=== PATIENT | female | born 1970 ===

== ENCOUNTER 2020-05-22 13:37 | Emergency (ER) | payer OTHER, SELFPAY ==
[2020-05-22 15:08] VITALS: BP 147/93; PULSE 88; RESP 16; TEMP 36.6; O2SAT 98; BMI 34.7
--- NOTE | 2020-05-22 16:10 | XR_ITS ---
EXAMINATION: XR RIBS, LEFT CLINICAL INFORMATION: Left flank and rib pain. COMPARISON: Chest radiograph 09/24/2018 TECHNIQUE: Frontal view chest and 3 views left ribs are obtained for a total of 4 views. FINDINGS: There is no visible rib fracture or rib destructive process. The lungs are clear. There is no pneumothorax or pleural reaction. There is no airspace consolidation or effusion. The heart is normal in size. The vascularity is normal. The hilar and mediastinal contours are unremarkable. XR/XR ribs LT min 3V w CXR1V IMPRESSION: Unremarkable examination.
[2020-05-22 16:38] LABS: MANUAL DIFF FLAG NO
[2020-05-22 16:41] LABS: Basophils Percent Auto 0.3 % (0-2); Eosinophils Absolute Auto 0.2 X10*3/uL (0.0-0.4); Eosinophils Percent Auto 1.3 % (0-4); Hematocrit 39.3 % (37-47); Hemoglobin 12.5 g/dl (12.0-16.0); Imm Gran Abs Auto 0.04 X10*3/uL (0.00-0.03); Imm Gran Pct Auto 0.3 % (0.0-0.4); Lymphocytes Absolute Auto 2.5 X10*3/uL (1.2-4.9); Lymphocytes Percent Auto 20.8 % (20-40); Mean Corpuscular HGB Conc 31.8 g/dl (31.0-35.0); Mean Corpuscular Hemoglobin 26.2 pg (27.0-33.0); Mean Corpuscular Volume 82.2 fL (80-98); Mean Platelet Volume 9.2 fL (9.4-12.3); Monocytes Absolute Auto 0.6 X10*3/uL (0.1-1.2); Monocytes Percent Auto 5.2 % (2-11); Neutrophils Absolute Auto 8.8 X10*3/uL (2.0-8.3); Neutrophils Percent Auto 72.1 % (45-73); Platelet Count 340 X10*3/uL (160-400); Red Blood Count 4.78 X10*6/uL (4.20-5.50); Red Cell Distribution Width 14.8 % (11.0-16.0); White Blood Count 12.2 X10*3/uL (4.8-10.8)
--- NOTE | 2020-05-22 16:50 | PC.NURSE ---
pt reports llq pain since friday morning. no recent change in activity. area is very tender to touch. no urine sx n/v/d
[2020-05-22 16:51] VITALS: BP 133/86; PULSE 86; RESP 18; TEMP 36.4; O2SAT 100
--- NOTE | 2020-05-22 16:59 | ECG_ITS ---
Test Reason : CP Blood Pressure : / mmHG Vent. Rate : 078 BPM Atrial Rate : 078 BPM P-R Int : 160 ms QRS Dur : 088 ms QT Int : 376 ms P-R-T Axes : 041 016 027 degrees QTc Int : 428 ms Normal sinus rhythm Normal ECG No previous ECGs available Referred By: Khadijah Ayers Electronically Signed By:LUANNE HUIZAR MD
[2020-05-22 17:00] LABS: Appearance Urine CLOUDY; Color Urine YELLOW; Glucose Urine UA NEG (NEG); Leukocyte Esterase Urine NEG (NEG); Nitrite Urine NEG (NEG); Specific Gravity - Urine 1.025 (1.005-1.025); Urine Blood NEG (NEG); Urine Ketones NEG (NEG); Urine Protein NEG (NEG-TRACE)
--- NOTE | 2020-05-22 17:02 | ED.BACK ---
HPI - Back Pain/Injury General Chief Complaint: Back Pain/Injury Stated Complaint: UPPER BACK PAIN Time Seen by Provider: 05/22/20 15:59 History of Present Illness HPI Narrative: 49-year-old female woke up yesterday morning with pain and her left upper back, started about 24 hours ago, pain is constant, described as severe 10/10, no radiation, exacerbated by taking a deep breath or twisting her trunk, none nothing relieves the pain, describes the pain as sharp in character. No other associated symptoms with the pain, patient had more less similar pain when she had a kidney stone in the past but was lower in her lower back. Patient declined trauma or or strong coughing or wheezing. Related Data Allergies Allergy/AdvReac Type Severity Reaction Status Date / Time No Known Allergies Allergy Verified 05/22/20 16:00 Review of Systems Review of Systems: All other systems are reviewed and are negative Constitutional: Reports as per HPI and Reports no additional constitutional complaints Eyes: Reports as per HPI and Reports no additional eye complaints Reports system reviewed and no additional complaints, except as documented Cardiovascular: Reports as per HPI and Reports no additional cardiovascular complaints Respiratory: Reports as per HPI and Reports no additional respiratory complaints Gastrointestinal: Reports as per HPI and Reports no additional gastrointestinal complaints Genitourinary: Reports no additional female genitourinary complaints Musculoskeletal: Reports no additional musculoskeletal complaints Skin/Breast: Reports system reviewed and no additional complaints, except as docu Psychiatric: Reports no additional psychiatric complaints Endocrine: Reports no additional endocrine complaints Hematologic/Lymphatic: Reports no additional hematologic/lymphatic complaints Allergic/Immunologic: Reports no additional allergic/immunologic complaints Reports system reviewed and no additional complaints, except as documented and Reports Abnormal speech present [facility] Past Medical History Medical History Hx of deep venous thrombosis Surgical History History of section History of endometrial ablation History of eye surgery History of surgery History of tubal ligation Family History Family History Father Colon cancer Mother Diabetes Sister Colon cancer Social History Social History Smoking Status: Never smoker Physical Exam Vital Signs: Vital Signs: Last Vital Signs Temp 97.6 F 05/22/20 16:51 Pulse 86 05/22/20 16:51 Resp 18 05/22/20 16:51 BP 133/86 05/22/20 16:51 Pulse Ox 100 05/22/20 16:51 Body Mass Index 34.7 Vital signs have been reviewed as normal and appeared to be correct. Blood pressure on the higher range. Heart rate normal. Respiration rate normal. Temperature normal. Oxygen saturation normal. Appearance: Alert. Oriented X3. No acute distress. Head: Normal external exam. Normocephalic. Atraumatic. No [place] signs noted. No raccoon eyes noted Eyes: PERRLA. EOMI. Conjunctiva and sclera normal. Eyelids normal. ENT: EAC normal. TM's Normal. Pharynx normal. Uvula midline. Moist mucous membranes. No trismus noted. No drooling noted. No muffled voice noted. Neck: Normal inspection. Neck supple. FROM. No adenopathy. Thyroid Normal. No meningeal signs. No neck mass noted. CVS: Normal heart rate and rhythm. Heart sound normal. No murmurs noted. Pulses normal throughout. Respiratory: No respiratory distress. Painless inspiration. Breath sounds normal. No wheezes/rales/rhonchi noted. Chest nontender. No accessory muscle usage noted or decreased air movement noted. Abdomen: Soft and nontender. Bowel sounds normal in all 4 quadrants. No distention noted. No organomegaly noted. No visible injury noted. Back: No CVA tenderness. Full range of motion noted. Skin: Skin warm and dry. Normal skin color. Normal skin turgor. No rashes/lesions/lacerations noted. Extremities: No lower extremity edema. Extremities exhibit normal range of motion. Extremities nontender. Neuro: Oriented X 3. No motor deficit. No sensory deficit. Reflexes normal. Course Course Course Narrative: 49-year-old female presented with left upper back pain constant for 24 hours, no trauma, chest x-ray is unremarkable, will check EKG, troponin, D-dimer, pain control, reassess. MDM - Back Pain/Injury MDM Narrative Medical decision making narrative: 49-year-old female presented with left upper back pain for 1 day, physical exam findings are consistent with myofascial origin of pain. Will discharge home with NSAIDs/muscle relaxant/heating pad. UA is not suggestive for kidney stone. Lab Data Attestation: I reviewed the patient's lab results. Result diagrams: 05/22/20 16:31 05/22/20 16:31 Labs: Lab Results 05/22/20 05/22/20 05/22/20 Range/Units 16:31 16:31 16:31 WBC 12.2 H (4.8-10.8) X10*3/uL RBC 4.78 (4.20-5.50) X10*6/uL Hgb 12.5 (12.0-16.0) g/dl Hct 39.3 (37-47) % MCV 82.2 (80-98) fL MCH 26.2 L (27.0-33.0) pg MCHC 31.8 (31.0-35.0) g/dl RDW 14.8 (11.0-16.0) % Plt Count 340 (160-400) X10*3/uL MPV 9.2 L (9.4-12.3) fL Immature Gran % (Auto) 0.3 (0.0-0.4) % Neut % (Auto) 72.1 (45-73) % Lymph % (Auto) 20.8 (20-40) % [place] % (Auto) 5.2 (2-11) % Eos % (Auto) 1.3 (0-4) % Baso % (Auto) 0.3 (0-2) % Lymph # (Auto) 2.5 (1.2-4.9) X10*3/uL [place] # (Auto) 0.6 (0.1-1.2) X10*3/uL Eos # (Auto) 0.2 (0.0-0.4) X10*3/uL Baso # (Auto) 0.0 (0.0-0.2) X10*3/uL Abs Immat Gran (auto) 0.04 H (0.00-0.03) X10*3/uL Absolute Neuts (auto) 8.8 H (2.0-8.3) X10*3/uL Absolute Nucleated RBC 0.000 (0.0-0.012) X10*3/uL Nucleated RBC % (auto) 0.0 (0.0-0.2) /100WBC D-Dimer < 200 NG/ML Hold Blue Top SEE NOTE Sodium 136 (135-145) mmol/L Potassium 4.0 (3.3-5.1) mmol/l Chloride 99 (96-108) mmol/L Carbon Dioxide 29 (22-29) mmol/L Anion Gap 12 (12-20) BUN 12 (9-16) mg/dL Creatinine 0.77 (0.5-1.4) mg/dL Estim Creat Clear Calc 104.0 Estimated GFR > 60 Random Glucose 99 (60-115) mg/dL Calcium 9.2 (8.4-10.2) mg/dL Total Bilirubin 0.8 (0.0-1.0) mg/dL Direct Bilirubin 0.3 (0.0-0.5) mg/dL AST 17 (5-31) U/L ALT 12 (0-31) U/L Alkaline Phosphatase 83 (39-117) U/L Troponin I High Sens (<3.5-17.0) ng/L Total Protein 8.2 H (6.5-8.0) g/dL Albumin 4.5 (3.5-5.0) g/dL Lipase 19 (8-78) U/L Urine Color Urine Appearance Urine pH (5.0-8.0) Ur Specific [place] (1.005-1.025) Urine Protein (NEG-TRACE) MG/DL Urine Glucose (UA) (NEG) MG/DL Urine Ketones (NEG) MG/DL Urine Blood (NEG) Urine Nitrite (NEG) Ur Leukocyte Esterase (NEG) Urine Test (NEGATIVE) 05/22/20 05/22/20 Range/Units 16:31 16:52 WBC (4.8-10.8) X10*3/uL RBC (4.20-5.50) X10*6/uL Hgb (12.0-16.0) g/dl Hct (37-47) % MCV (80-98) fL MCH (27.0-33.0) pg MCHC (31.0-35.0) g/dl RDW (11.0-16.0) % Plt Count (160-400) X10*3/uL MPV (9.4-12.3) fL Immature Gran % (Auto) (0.0-0.4) % Neut % (Auto) (45-73) % Lymph % (Auto) (20-40) % [place] % (Auto) (2-11) % Eos % (Auto) (0-4) % Baso % (Auto) (0-2) % Lymph # (Auto) (1.2-4.9) X10*3/uL [place] # (Auto) (0.1-1.2) X10*3/uL Eos # (Auto) (0.0-0.4) X10*3/uL Baso # (Auto) (0.0-0.2) X10*3/uL Abs Immat Gran (auto) (0.00-0.03) X10*3/uL Absolute Neuts (auto) (2.0-8.3) X10*3/uL Absolute Nucleated RBC (0.0-0.012) X10*3/uL Nucleated RBC % (auto) (0.0-0.2) /100WBC D-Dimer NG/ML Hold Blue Top Sodium (135-145) mmol/L Potassium (3.3-5.1) mmol/l Chloride (96-108) mmol/L Carbon Dioxide (22-29) mmol/L Anion Gap (12-20) BUN (9-16) mg/dL Creatinine (0.5-1.4) mg/dL Estim Creat Clear Calc Estimated GFR Random Glucose (60-115) mg/dL Calcium (8.4-10.2) mg/dL Total Bilirubin (0.0-1.0) mg/dL Direct Bilirubin (0.0-0.5) mg/dL AST (5-31) U/L ALT (0-31) U/L Alkaline Phosphatase (39-117) U/L Troponin I High Sens < 3.5 (<3.5-17.0) ng/L Total Protein (6.5-8.0) g/dL Albumin (3.5-5.0) g/dL Lipase (8-78) U/L Urine Color YELLOW Urine Appearance CLOUDY Urine pH 7.0 (5.0-8.0) Ur Specific [place] 1.025 (1.005-1.025) Urine Protein NEG (NEG-TRACE) MG/DL Urine Glucose (UA) NEG (NEG) MG/DL Urine Ketones NEG (NEG) MG/DL Urine Blood NEG (NEG) Urine Nitrite NEG (NEG) Ur Leukocyte Esterase NEG (NEG) Urine Test NEGATIVE (NEGATIVE) Imaging Data Chest x-ray: Radiologist's impression: No acute pathology. ECG Data Interpretation: Normal sinus rhythm at 78 beats per minute, normal axis, normal intervals, no ST-T changes.
[2020-05-22 17:03] LABS: Alanine Aminotransferase 12 U/L (0-31); Albumin Level 4.5 g/dL (3.5-5.0); Alkaline Phosphatase 83 U/L (39-117); Anion Gap 12 (12-20); Aspartate Amino Transferase 17 U/L (5-31); Bilirubin Direct 0.3 mg/dL (0.0-0.5); Bilirubin Total 0.8 mg/dL (0.0-1.0); Blood Urea Nitrogen 12 mg/dL (9-16); Calcium 9.2 mg/dL (8.4-10.2); Carbon Dioxide 29 mmol/L (22-29); Chloride 99 mmol/L (96-108); Estimated Glomerular Filt Rate > 60; Glucose Random 99 mg/dL (60-115); Lipase 19 U/L (8-78); Sodium 136 mmol/L (135-145); Total Protein 8.2 g/dL (6.5-8.0)
[2020-05-22] MEDS: Morphine Sulfate 2 MG/ML CARTRIDGE 1 MG IVPUSH (17:48)
[2020-05-22] MEDS: Ketorolac Tromethamine 15 MG/ML VIAL IV (17:49)
[2020-05-22 18:00] VITALS: BP 125/80; PULSE 85; RESP 18; TEMP 36.8; O2SAT 100
[2020-05-22 18:39] LABS: UPreg QC Valid YES
[2020-05-22 18:40] LABS: Urine Pregnancy NEGATIVE (NEGATIVE)
[2020-05-22 18:40] LABS: D Dimer < 200 NG/ML
[2020-05-22 19:00] LABS: Troponin-I High Sensitivity < 3.5 ng/L (<3.5-17.0)
== END 2020-05-22 19:58 | disposition home or self-care (01) ==
PROVIDERS: Physician Assistant; Emergency Provider Emergency Medicine; PCP Internal Medicine
DX: M54.5 Low back pain (principal); R07.81 Pleurodynia
CPT/HCPCS: 36415; 71101; 80048; 80076; 81003; 81025; 83690; 84484; 85025; 85379; 93005; 96374; 96375; 99284; J1885; J2270

== ENCOUNTER 2020-05-23 08:34 | Outpatient (REF) | payer OTHER, SELFPAY ==
[2020-05-23 09:26] LABS: MANUAL DIFF FLAG NO
[2020-05-23 09:29] LABS: Basophils Percent Auto 0.5 % (0-2); Eosinophils Absolute Auto 0.2 X10*3/uL (0.0-0.4); Eosinophils Percent Auto 2.8 % (0-4); Hematocrit 39.1 % (37-47); Hemoglobin 12.4 g/dl (12.0-16.0); Imm Gran Abs Auto 0.02 X10*3/uL (0.00-0.03); Imm Gran Pct Auto 0.3 % (0.0-0.4); Lymphocytes Absolute Auto 1.8 X10*3/uL (1.2-4.9); Lymphocytes Percent Auto 23.4 % (20-40); Mean Corpuscular HGB Conc 31.7 g/dl (31.0-35.0); Mean Corpuscular Hemoglobin 26.6 pg (27.0-33.0); Mean Corpuscular Volume 83.9 fL (80-98); Mean Platelet Volume 9.5 fL (9.4-12.3); Monocytes Absolute Auto 0.5 X10*3/uL (0.1-1.2); Monocytes Percent Auto 5.8 % (2-11); Neutrophils Absolute Auto 5.2 X10*3/uL (2.0-8.3); Neutrophils Percent Auto 67.2 % (45-73); Platelet Count 310 X10*3/uL (160-400); Red Blood Count 4.66 X10*6/uL (4.20-5.50); Red Cell Distribution Width 14.9 % (11.0-16.0); White Blood Count 7.7 X10*3/uL (4.8-10.8)
[2020-05-23 09:44] LABS: Estimated Average Glucose 131 mg/dL; Hemoglobin A1c % 6.2 %
[2020-05-23 10:00] LABS: Alanine Aminotransferase 12 U/L (0-31); Albumin Level 4.1 g/dL (3.5-5.0); Alkaline Phosphatase 79 U/L (39-117); Anion Gap 13 (12-20); Aspartate Amino Transferase 16 U/L (5-31); Blood Urea Nitrogen 15 mg/dL (9-16); Calcium 8.9 mg/dL (8.4-10.2); Carbon Dioxide 29 mmol/L (22-29); Chloride 103 mmol/L (96-108); Cholesterol 165 mg/dL; Estimated Glomerular Filt Rate > 60; Glucose Fasting 103 mg/dL (60-99); HDL Cholesterol 35 mg/dL; LDL Cholesterol Calculated 103 mg/dl; Potassium 4.8 mmol/l (3.3-5.1); Sodium 140 mmol/L (135-145); Total Protein 7.5 g/dL (6.5-8.0); Triglycerides 135 mg/dL
[2020-05-23 10:13] LABS: TSH reflex Free T4 2.69 mIU/mL (0.32-4.0); Vitamin D 25-OH Total 18.4 ng/mL (>30)
[2020-05-23 10:34] LABS: Folate 12.5 ng/mL (> or = 4.0); Vitamin B12 305 pg/mL (200-900)
[2020-05-27 06:11] LABS: Methylmalonic Acid 195 nmol/L (87-318)
== END 2020-05-23 08:35 | disposition home or self-care (01) ==
LOC: HO.LAB 08:34
PROVIDERS: Visit Provider Internal Medicine
DX: E78.5 Hyperlipidemia, unspecified (principal); R73.01 Impaired fasting glucose; G62.9 Polyneuropathy, unspecified; E53.8 Deficiency of other specified B group vitamins; D68.59 Other primary thrombophilia; K21.9 Gastro-esophageal reflux disease without esophagitis; E55.9 Vitamin D deficiency, unspecified; E66.9 Obesity, unspecified
CPT/HCPCS: 36415; 80053; 80061; 82306; 82607; 82746; 83036; 83921; 84443; 85025

== ENCOUNTER 2020-05-31 15:59 | Outpatient (REF) | payer OTHER, SELFPAY | END 2020-05-31 16:00 | disposition home or self-care (01) | LOC: HO.LAB 15:59 | PROVIDERS: Visit Provider Internal Medicine | DX: Z20.828 Contact with and (suspected) exposure to other viral communicable diseases (principal) | CPT/HCPCS: C9803; U0003 ==

== ENCOUNTER 2020-08-10 15:07 | Outpatient (REF) | payer OTHER, SELFPAY ==
--- NOTE | 2020-08-10 15:11 | MM_ITS ---
EXAMINATION: MM SCREENING DIGITAL BREAST TOMOSYNTHESIS, BILATERAL CLINICAL INFORMATION: Screening. Asymptomatic. History atypical ductal hyperplasia left breast stereotactic biopsy 11/16/2012 status post excision with no upstaging 12/21/2012. The lifetime risk of breast cancer based on the Tyrer-Cuzick Model is 34%. COMPARISON: Mammography: 09/23/2018, prior studies dating back to 05/11/2013 TECHNIQUE: Digital breast tomosynthesis is performed in both the craniocaudal and mediolateral oblique views along with computer-aided detection (CAD). Synthesized 2D images are generated from the tomosynthesis. Additional bilateral exaggerated CC views are provided. FINDINGS: There are scattered areas of fibroglandular density (ACR BI-RADS breast composition Category b). Parenchymal pattern is similar to prior studies. There are some residual punctate calcifications posterior medial left breast decreased since 2012 consistent with the prior excision. There is no significant mass or architectural abnormality or abnormal calcifications. The axilla and skin contours are unremarkable. MM/MM tomosynthesis screening BI IMPRESSION: No significant changes from prior exams. ASSESSMENT: BI-RADS 2: Benign RECOMMENDATION: 1. Routine annual mammography screening. 2. The lifetime risk of breast cancer based on the Tyrer-Cuzick Model is 34%. Additional annual adjunct screening with breast MRI may be of benefit in women with a risk score of 20% or greater. This patient's information was entered into a reminder system with a target due date for their next mammogram.
== END 2020-08-10 15:08 | disposition home or self-care (01) ==
LOC: HO.MAMMO 15:07
PROVIDERS: Visit Provider Internal Medicine
DX: Z12.31 Encounter for screening mammogram for malignant neoplasm of breast (principal)
CPT/HCPCS: 77063; 77067

== ENCOUNTER 2020-08-15 10:36 | Outpatient (REF) | payer OTHER, SELFPAY ==
[2020-08-15 11:06] LABS: MANUAL DIFF FLAG NO
[2020-08-15 11:09] LABS: Basophils Percent Auto 0.6 % (0-2); Eosinophils Absolute Auto 0.2 X10*3/uL (0.0-0.4); Eosinophils Percent Auto 2.9 % (0-4); Hematocrit 37.6 % (37-47); Hemoglobin 11.9 g/dl (12.0-16.0); Imm Gran Abs Auto 0.02 X10*3/uL (0.00-0.03); Imm Gran Pct Auto 0.3 % (0.0-0.4); Lymphocytes Absolute Auto 2.4 X10*3/uL (1.2-4.9); Lymphocytes Percent Auto 34.8 % (20-40); Mean Corpuscular HGB Conc 31.6 g/dl (31.0-35.0); Mean Corpuscular Hemoglobin 26.1 pg (27.0-33.0); Mean Corpuscular Volume 82.5 fL (80-98); Mean Platelet Volume 9.5 fL (9.4-12.3); Monocytes Absolute Auto 0.5 X10*3/uL (0.1-1.2); Monocytes Percent Auto 6.7 % (2-11); Neutrophils Absolute Auto 3.8 X10*3/uL (2.0-8.3); Neutrophils Percent Auto 54.7 % (45-73); Platelet Count 303 X10*3/uL (160-400); Red Blood Count 4.56 X10*6/uL (4.20-5.50); Red Cell Distribution Width 13.4 % (11.0-16.0)
[2020-08-15 11:46] LABS: Alanine Aminotransferase 15 U/L (0-31); Alkaline Phosphatase 76 U/L (39-117); Anion Gap 10 (12-20); Aspartate Amino Transferase 18 U/L (5-31); Bilirubin Total 0.7 mg/dL (0.0-1.0); Blood Urea Nitrogen 14 mg/dL (9-16); Calcium 8.6 mg/dL (8.4-10.2); Carbon Dioxide 30 mmol/L (22-29); Chloride 102 mmol/L (96-108); Cholesterol 157 mg/dL; Estimated Glomerular Filt Rate > 60; Glucose Fasting 102 mg/dL (60-99); HDL Cholesterol 34 mg/dL; LDL Cholesterol Calculated 81 mg/dl; Potassium 4.4 mmol/L (3.3-5.1); Sodium 138 mmol/L (135-145); Total Protein 7.4 g/dL (6.5-8.0); Triglycerides 210 mg/dL
[2020-08-15 12:06] LABS: TSH reflex Free T4 3.63 uIU/mL (0.32-4.0)
== END 2020-08-15 10:37 | disposition home or self-care (01) ==
LOC: HO.LAB 10:36
PROVIDERS: PCP Internal Medicine; Visit Provider Internal Medicine
DX: K21.9 Gastro-esophageal reflux disease without esophagitis (principal); E66.9 Obesity, unspecified; I87.303 Chronic venous hypertension (idiopathic) without complications of bilateral lower extremity; E78.00 Pure hypercholesterolemia, unspecified
CPT/HCPCS: 36415; 80053; 80061; 84443; 85025

== ENCOUNTER 2020-08-23 12:24 | Outpatient (REF) | payer OTHER, SELFPAY | END 2020-08-23 12:25 | disposition home or self-care (01) | LOC: HO.LAB 12:24 | PROVIDERS: Visit Provider Internal Medicine | DX: Z20.822 Contact with and (suspected) exposure to COVID-19 (principal) | CPT/HCPCS: 36415; C9803; U0003; U0005 ==

== ENCOUNTER 2020-08-29 14:12 | Outpatient (REF) | payer OTHER, SELFPAY | END 2020-08-29 14:13 | disposition home or self-care (01) | LOC: HO.LAB 14:12 | PROVIDERS: PCP Internal Medicine; Visit Provider Internal Medicine | DX: Z20.822 Contact with and (suspected) exposure to COVID-19 (principal) | CPT/HCPCS: 36415; C9803; U0003; U0005 ==

== ENCOUNTER 2020-09-01 11:31 | Outpatient (REF) | payer OTHER, SELFPAY | END 2020-09-01 11:32 | disposition home or self-care (01) | LOC: HO.LAB 11:31 | PROVIDERS: PCP Internal Medicine; Visit Provider Internal Medicine | DX: Z20.822 Contact with and (suspected) exposure to COVID-19 (principal) | CPT/HCPCS: 36415; C9803; U0003; U0005 ==

== ENCOUNTER 2020-09-07 14:42 | Outpatient (REF) | payer OTHER, SELFPAY | END 2020-09-07 14:43 | disposition home or self-care (01) | LOC: HO.LAB 14:42 | PROVIDERS: Visit Provider Internal Medicine | DX: Z20.822 Contact with and (suspected) exposure to COVID-19 (principal) | CPT/HCPCS: 36415; C9803; U0003; U0005 ==

== ENCOUNTER 2020-10-12 15:07 | Outpatient (REF) | payer OTHER, SELFPAY ==
[2020-10-13 13:26] LABS: SARS COV2 PCR INHOUSE NEGATIVE (Negative)
== END 2020-10-12 15:08 | disposition home or self-care (01) ==
LOC: HO.LAB 15:07
PROVIDERS: Visit Provider Internal Medicine
DX: Z20.822 Contact with and (suspected) exposure to COVID-19 (principal)
CPT/HCPCS: C9803; U0003

== ENCOUNTER 2020-10-27 15:15 | Outpatient (REF) | payer OTHER, SELFPAY ==
[2020-10-27 15:57] LABS: COVID-19 Test Negative (Negative)
== END 2020-10-27 15:16 | disposition home or self-care (01) ==
LOC: HO.LAB 15:15
PROVIDERS: Visit Provider Internal Medicine
DX: Z20.822 Contact with and (suspected) exposure to COVID-19 (principal)
CPT/HCPCS: 36415; 87635; C9803

== ENCOUNTER 2020-11-10 13:49 | Outpatient (REF) | payer OTHER, SELFPAY ==
--- NOTE | ~2020-11-10 | US_ITS ---
EXAMINATION: US VENOUS ULTRASOUND WITH DOPPLER LOWER EXTREMITY, RIGHT CLINICAL INFORMATION: Right leg pain. History of previous DVT. COMPARISON: Previous exam most recent August 2012 and February 2014 TECHNIQUE: Ultrasound of the deep veins is performed from the hip to the calf with compression sonography and color and pulse Doppler assessment. Spectral analysis with color-flow imaging is performed. FINDINGS: There is hypoechoic material seen in the right common femoral vein. This is increased from previous exam February 2014 and suggestive of acute DVT. There is wall thickening seen in the right mid common femoral vein probably representing changes from old DVT. The popliteal, posterior tibial and peroneal veins in the calf are patent. The contralateral left common femoral vein is patent. There is no Natarajan's cyst. US/US venous duplex LE RT IMPRESSION: Probable acute DVT in the right common femoral vein and probable changes from old DVT in the right mid femoral vein. Short-term follow-up exam in several days to evaluate for interval change and help evaluate chronicity may be helpful. Findings were communicated to nurse Ivet Rodriguez by telephone on 11/10/2020 at 4:20 PM by telephone. She requested the patient be taken to the emergency room.
== END 2020-11-10 13:50 | disposition home or self-care (01) ==
LOC: HO.US 13:49
PROVIDERS: PCP Internal Medicine; Visit Provider Internal Medicine
DX: M79.661 Pain in right lower leg (principal); M79.89 Other specified soft tissue disorders
CPT/HCPCS: 93971

== ENCOUNTER 2020-11-10 16:25 | Emergency (ER) | payer OTHER, SELFPAY ==
[2020-11-10 17:14] VITALS: BP 155/92; PULSE 81; RESP 16; TEMP 36.7; O2SAT 100; BMI 35.0
--- NOTE | 2020-11-10 19:26 | ED.LOWEXIN ---
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 She reports ongoing RLE pain for the last 2 months. She has been on Xarelto since 2012 after her 2nd DVT, it was unprovoked. Her 1st clot was in 2004 after a back surgery. She denies any trauma to her right leg. She has been compliant with Xarleto. She denies any chest pain or SOB. She reports seeing Dr. Holt back in 2012 and thinks her hyeprcoagulable workup was negative. She denies family history of blood clots or clotting disorders. MD complaint: other (RLE pain and swelling) Onset (ago): month(s) (2) Injury: Right: thigh and ankle Type of Injury: unknown Place: home Severity: moderate Relieving factors: immobilization and rest Exacerbating factors: weight bearing Associated symptoms: swelling Other symptoms: none Related Data Home Medications Medication Instructions Recorded Confirmed phentermine 37.5 mg capsule 37.5 mg PO QAM 05/24/20 05/25/20 rivaroxaban 20 mg tablet 20 mg PO DAILY 05/24/20 05/25/20 doxepin 10 mg capsule 10 mg PO BEDTIME 05/25/20 05/25/20 gabapentin 600 mg tablet 600 mg PO TID 05/25/20 05/25/20 hydroxyzine HCl 25 mg tablet 25 mg PO TID PRN 05/25/20 05/25/20 ropinirole 1 mg tablet 1 mg PO BEDTIME 05/25/20 05/25/20 sertraline 100 mg tablet 100 mg PO DAILY 05/25/20 05/25/20 tapentadol 50 mg tablet 50 mg PO Q6H PRN 05/25/20 05/25/20 Previous Rx's Medication Instructions Recorded cyclobenzaprine 10 mg PO TID #14 tab 05/22/20 mecobalamin (vitamin B12) 1,000 1,000 mcg SUBLINGUAL DAILY 90 Days 05/25/20 mcg disintegrating #90 tab tablet,sublingual cholecalciferol (vitamin D3) 50 50 mcg PO DAILY 90 Days #90 cap 11/10/20 mcg (2,000 unit) capsule enoxaparin [Lovenox] 100 mg SUBCUT Q12H #10 ml 11/10/20 Allergies Allergy/AdvReac Type Severity Reaction Status Date / Time No Known Allergies Allergy Verified 11/10/20 13:20 Review of Systems Review of Systems: Constitutional: No Fever, No Chills ENT/Mouth: No sore throat, No Rhinorrhea, No Swallowing Difficulty Cardiovascular: No Chest Pain, No SOB, No Orthopnea, +Edema Respiratory: No Cough, No Sputum, No Wheezing, No dyspnea Gastrointestinal: No Nausea, No Vomiting, No Diarrhea, No abdominal Pain, No Hematochezia, No Melena Genitourinary: No Dysuria, No Urinary Frequency, No Hematuria Musculoskeletal: No joint pain, + Myalgias Skin: No Skin Lesions, No rash Neuro: No Weakness, No Numbness, No Dizziness, No Headache Heme/Lymph: No Bruising, No Lymphadenopathy PMFSH Past Medical History Medical History Anxiety Dyslipidemia GERD (gastroesophageal reflux disease) Hx of deep venous thrombosis Hypercoagulable state Impaired fasting glucose Lumbar degenerative disc disease Obesity (BMI 30-39.9) Pain and swelling of right lower extremity Peripheral neuropathy Restless leg syndrome Stasis edema of both lower extremities Vitamin B12 deficiency Vitamin D deficiency Surgical History History of section History of endometrial ablation History of eye surgery History of surgery History of tubal ligation Family History Family History Father Colon cancer Mother Diabetes Sister Colon cancer Social History Social History Alcohol intake: never Smoking Status: Never smoker Advance Directives: No Advance Directives Information Provided: Yes Physical Exam Vital Signs: Vital Signs: Last Vital Signs Temp 97.4 F 11/10/20 20:23 Pulse 77 11/10/20 20:23 Resp 14 11/10/20 20:23 BP 161/85 H 11/10/20 20:23 Pulse Ox 98 11/10/20 20:23 Body Mass Index 35.0 Appearance: Alert. Oriented X3. No acute distress. Eyes: Pupils equal, round and reactive to light. ENT: Pharynx normal. Neck: Normal inspection. CVS: Normal heart rate and rhythm. Pulses normal. Respiratory: No respiratory distress. Breath sounds normal. Abdomen: Soft and nontender. +BS x4 Skin: Skin warm and dry. Normal skin color. Normal skin turgor. No rashes. Extremities: mild RLE edema, non-pitting, +Rajiv's sign, thigh is tender to touch laterally and anteriorly. varicose veins present. Neuro: Oriented X 3. No motor deficit. No sensory deficit. Ambulates with slight limp Course Course Course Narrative: 49 y/o female presenting with RLE DVT while on Xarelto. Will likely need to go back on Lovenox/Coumadin given her NOAC failure. Awaiting call back from Dr. Holt for recs. Reevaluation(s) Reevaluation #1: Dr. Holt recommending SC Lovenox 1 mg/kg BID for treatment. She will f/u in the office. Consultations Consultation #1: Heme/Onc Dr. Holt Discharge Plan Discharge Clinical Impression: DVT, recurrent, lower extremity, acute Qualifiers: Laterality: right Qualified Code(s): I82.401 - Acute embolism and thrombosis of unspecified deep veins of right lower extremity Patient Disposition: Home, Self-Care Instructions: Enoxaparin (By injection), Deep Vein Thrombosis (ED) Additional Instructions: Your ultrasound today showed a DVT in your femoral vein in your right leg. You need to STOP taking Xarleto and START taking Lovenox 1 mg per kg every 12 hours. You need to follow up with Dr. Holt for further workup and management. Recommend following up with your PCP as well - you will likely need a repeat ultrasound to make sure the clot is not getting bigger. If you develop shortness of breath or chest pain come back to the ER for further evaluation. Prescriptions: New enoxaparin [Lovenox] 100 mg/mL syringe 100 mg subcut Q12H Qty: 10 RF: 2 No Action cyclobenzaprine 10 mg tablet 10 mg PO TID Qty: 14 RF: 0 Xarelto 20 mg tablet 20 mg PO DAILY RF: 0 phentermine 37.5 mg capsule 37.5 mg PO QAM RF: 0 gabapentin 600 mg tablet 600 mg PO TID RF: 0 tapentadol 50 mg tablet 50 mg PO Q6H PRNRF: 0 mecobalamin (vitamin B12) 1,000 mcg tablet,disintegrating 1,000 mcg sublingual DAILY 90 Days Qty: 90 RF: 5 sertraline 100 mg tablet 100 mg PO DAILY RF: 0 doxepin 10 mg capsule 10 mg PO BEDTIME RF: 0 hydroxyzine HCl 25 mg tablet 25 mg PO TID PRNRF: 0 ropinirole 1 mg tablet 1 mg PO BEDTIME RF: 0 cholecalciferol (vitamin D3) 50 mcg (2,000 unit) capsule 50 mcg PO DAILY 90 Days Qty: 90 RF: 3 Referrals: Nasir Holt MD [Physician] - 2 days (recurrent DVT, xarelto failure)
[2020-11-10] MEDS: Enoxaparin Sodium 100 MG/ML SYRINGE SUBCUT (20:22)
[2020-11-10 20:23] VITALS: BP 161/85; PULSE 77; RESP 14; TEMP 36.3; O2SAT 98
--- NOTE | 2020-11-10 20:25 | PC.NURSE ---
Patient medicated with Lovenox to RLQ of Abdomen. Per provider, plan to discharge home with follow-up required.
== END 2020-11-10 21:35 | disposition home or self-care (01) ==
PROVIDERS: Emergency Provider Internal Medicine; PCP Internal Medicine
DX: I82.401 Acute embolism and thrombosis of unspecified deep veins of right lower extremity (principal); M79.661 Pain in right lower leg; Z86.718 Personal history of other venous thrombosis and embolism; Z79.01 Long term (current) use of anticoagulants
CPT/HCPCS: 93971; 96372; 99283; 99284; J1650

== ENCOUNTER 2020-12-07 13:12 | Outpatient (REF) | payer OTHER, SELFPAY ==
--- NOTE | ~2020-12-07 | US_ITS ---
EXAMINATION: US VENOUS ULTRASOUND WITH DOPPLER LOWER EXTREMITY, RIGHT CLINICAL INFORMATION: Recurrent right leg DVT COMPARISON: November 10, 2020 and March 04, 2014 TECHNIQUE: Ultrasound of the deep veins is performed from the hip to the calf with compression sonography and color and pulse Doppler assessment. Spectral analysis with color-flow imaging is performed. FINDINGS: There is some limited compressibility of the common femoral vein with linear synechiae present and some wall thickening with what appears be nonocclusive probably chronic thrombus. This is similar to previous study with no definite new acute deep venous thrombosis identified. The remainder of the venous system is compressible and with normal response to compression and augmentation procedures. There is no significant popliteal fossa cyst. No popliteal artery aneurysm. US/US venous duplex LE RT IMPRESSION: Findings of chronic deep venous thrombosis of the right lower extremity involving the common femoral vein with no definite superimposed acute thrombus identified.
== END 2020-12-07 13:13 | disposition home or self-care (01) ==
LOC: HO.US 13:12
PROVIDERS: PCP Internal Medicine; Visit Provider Internal Medicine Medical Oncology
DX: I82.401 Acute embolism and thrombosis of unspecified deep veins of right lower extremity (principal)
CPT/HCPCS: 93971

== ENCOUNTER 2021-01-16 12:01 | Outpatient (REF) | payer OTHER, SELFPAY | END 2021-01-16 12:02 | disposition home or self-care (01) | LOC: HO.LAB 12:01 | PROVIDERS: PCP Internal Medicine; Visit Provider Internal Medicine | DX: Z20.822 Contact with and (suspected) exposure to COVID-19 (principal) | CPT/HCPCS: C9803; U0003; U0005 ==

== ENCOUNTER 2021-02-01 12:00 | Outpatient (REF) | payer OTHER, SELFPAY ==
--- NOTE | ~2021-02-01 | US_ITS ---
EXAMINATION: US VENOUS ULTRASOUND WITH DOPPLER LOWER EXTREMITY, RIGHT CLINICAL INFORMATION: Follow up right leg DVT. COMPARISON: Ultrasound right lower leg venous study 12/07/2020. TECHNIQUE: Ultrasound of the deep veins was performed from the hip to the calf with compression sonography and color and pulse Doppler assessment. Spectral analysis with color-flow imaging is performed. FINDINGS: There is a partial nonocclusive thrombus in the right common femoral vein in segment. The proximal and distal common femoral vein segment is otherwise patent. The visualized profunda femoral vein, popliteal vein, and the trifurcation region shows no evidence of deep venous thrombosis. There is no significant popliteal fossa cyst. f the patient's symptoms persist, follow up ultrasound in 5 days 7 days might be of value to exclude proximal propagation from a non-visualized calf vein. US/US venous duplex LE RT IMPRESSION: Chronic deep venous thrombosis right mid common femoral vein. This is unchanged to previous exam 12/07/2020. Otherwise the right lower extremity is widely patent. No new DVT seen.
== END 2021-02-01 12:01 | disposition home or self-care (01) ==
LOC: HO.US 12:00
PROVIDERS: PCP Internal Medicine; Visit Provider Internal Medicine Medical Oncology
DX: I82.401 Acute embolism and thrombosis of unspecified deep veins of right lower extremity (principal)
CPT/HCPCS: 93971

== ENCOUNTER 2021-02-07 08:51 | Outpatient (REF) | payer OTHER, SELFPAY ==
[2021-02-07 09:36] LABS: MANUAL DIFF FLAG NO
[2021-02-07 09:41] LABS: Basophils Percent Auto 0.6 % (0-2); Eosinophils Absolute Auto 0.2 X10*3/uL (0.0-0.4); Eosinophils Percent Auto 3.4 % (0-4); Hematocrit 37.6 % (37-47); Hemoglobin 11.8 g/dl (12.0-16.0); Imm Gran Abs Auto 0.02 X10*3/uL (0.00-0.03); Imm Gran Pct Auto 0.3 % (0.0-0.4); Lymphocytes Absolute Auto 2.1 X10*3/uL (1.2-4.9); Lymphocytes Percent Auto 32.5 % (20-40); Mean Corpuscular HGB Conc 31.4 g/dl (31.0-35.0); Mean Corpuscular Hemoglobin 25.7 pg (27.0-33.0); Mean Corpuscular Volume 81.7 fL (80-98); Mean Platelet Volume 9.1 fL (9.4-12.3); Monocytes Absolute Auto 0.5 X10*3/uL (0.1-1.2); Monocytes Percent Auto 6.9 % (2-11); Neutrophils Absolute Auto 3.7 X10*3/uL (2.0-8.3); Neutrophils Percent Auto 56.3 % (45-73); Platelet Count 311 X10*3/uL (160-400); Red Cell Distribution Width 14.3 % (11.0-16.0); White Blood Count 6.6 X10*3/uL (4.8-10.8)
[2021-02-07 09:49] LABS: Estimated Average Glucose 131 mg/dL; Hemoglobin A1c % 6.2 %
[2021-02-07 10:16] LABS: Alanine Aminotransferase 13 U/L (0-31); Alkaline Phosphatase 77 U/L (39-117); Anion Gap 11 (12-20); Aspartate Amino Transferase 17 U/L (5-31); Bilirubin Total 0.9 mg/dL (0.0-1.0); Blood Urea Nitrogen 11 mg/dL (9-16); Calcium 9.4 mg/dL (8.4-10.2); Carbon Dioxide 28 mmol/L (22-29); Chloride 104 mmol/L (96-108); Cholesterol 169 mg/dL; Estimated Glomerular Filt Rate > 60; Glucose Fasting 117 mg/dL (60-99); HDL Cholesterol 36 mg/dL; LDL Cholesterol Calculated 104 mg/dl; Potassium 4.9 mmol/L (3.3-5.1); Sodium 138 mmol/L (135-145); Total Protein 7.3 g/dL (6.5-8.0); Triglycerides 148 mg/dL
[2021-02-07 10:36] LABS: TSH reflex Free T4 3.54 uIU/mL (0.32-4.0); Vitamin D 25-OH Total 17.8 ng/mL (>30)
[2021-02-07 10:57] LABS: Folate 12.7 ng/mL (> or = 4.0); Vitamin B12 201 pg/mL (200-900)
== END 2021-02-07 08:52 | disposition home or self-care (01) ==
LOC: HO.LAB 08:51
PROVIDERS: PCP Internal Medicine; Visit Provider Internal Medicine
DX: E78.5 Hyperlipidemia, unspecified (principal); R73.01 Impaired fasting glucose; D68.59 Other primary thrombophilia; E53.8 Deficiency of other specified B group vitamins; K21.9 Gastro-esophageal reflux disease without esophagitis; E55.9 Vitamin D deficiency, unspecified; E66.9 Obesity, unspecified
CPT/HCPCS: 36415; 80053; 80061; 82306; 82607; 82746; 83036; 84443; 85025

== ENCOUNTER → 2021-02-21 10:18 | Outpatient (BNVA) | payer OTHER, SELFPAY | PROVIDERS: PCP Internal Medicine; Visit Provider Physician Assistant | DX: K21.9 Gastro-esophageal reflux disease without esophagitis (principal); I82.401 Acute embolism and thrombosis of unspecified deep veins of right lower extremity; Z79.01 Long term (current) use of anticoagulants; Z80.0 Family history of malignant neoplasm of digestive organs | CPT/HCPCS: 99202 ==

== ENCOUNTER 2021-03-29 15:25 | Emergency (ER) | payer OTHER, SELFPAY ==
--- NOTE | ~2021-03-29 | US_ITS ---
EXAMINATION: US VENOUS ULTRASOUND WITH DOPPLER LOWER EXTREMITY, BILATERAL CLINICAL INFORMATION: Bilateral lower extremity pain. Patient with history of DVT on Eliquis COMPARISON: Multiple prior DVT studies the most recent of which was 02/01/2021 TECHNIQUE: Ultrasound of the deep veins is performed from the hip to the calf with compression sonography and color and pulse Doppler assessment. Spectral analysis with color-flow imaging is performed. FINDINGS: RIGHT: Again seen are chronic changes of DVT with nonocclusive thrombus in the right common femoral vein. There is otherwise normal venous compression and respiratory variation and augmented flow. The visualized superficial femoral vein, profunda femoral vein, popliteal vein, and the trifurcation region shows no evidence of deep venous thrombosis. There is no significant popliteal fossa cyst. LEFT: There is normal venous compression and respiratory variation and augmented flow. The visualized common femoral vein, superficial femoral vein, profunda femoral vein, popliteal vein, and the trifurcation region shows no evidence of deep venous thrombosis. There is no significant popliteal fossa cyst. If the patient's symptoms persist, followup ultrasound in 5 days 7 days might be of value to exclude proximal propagation from a non-visualized calf vein. US/US venous duplex LE IMPRESSION: Redemonstration of chronic DVT right common femoral vein, nonobstructive. No DVT demonstrated in the left lower extremity.
--- NOTE | ~2021-03-29 | XR_ITS ---
EXAMINATION: BILATERAL FOOT. CLINICAL INFORMATION: Heel pain COMPARISON: None TECHNIQUE: 3 views H foot. FINDINGS: Right foot: There is no visible acute fracture, dislocation or subluxation seen. No soft tissue abnormality. The ankle mortise and subtalar joints are normal. There is small calcaneal heel and retrocalcaneal enthesophytes. The soft tissues are normal. Left foot: There is a small calcaneal heel and retrocalcaneal enthesophytes. No acute fracture, dislocation or subluxation seen. No bony erosive changes. The ankle joint and subtalar talar joints are normal. There is mild dorsal tarsometatarsal spurring on lateral view. XR/XR foot LT min 3V IMPRESSION: Bilateral calcaneal heel and retrocalcaneal enthesophytes. No visible acute fracture or dislocation seen. There is mild dorsal tarsometatarsal spurring left foot. No abnormal soft tissue swelling seen.
--- NOTE | ~2021-03-29 | XR_ITS ---
EXAMINATION: BILATERAL FOOT. CLINICAL INFORMATION: Heel pain COMPARISON: None TECHNIQUE: 3 views H foot. FINDINGS: Right foot: There is no visible acute fracture, dislocation or subluxation seen. No soft tissue abnormality. The ankle mortise and subtalar joints are normal. There is small calcaneal heel and retrocalcaneal enthesophytes. The soft tissues are normal. Left foot: There is a small calcaneal heel and retrocalcaneal enthesophytes. No acute fracture, dislocation or subluxation seen. No bony erosive changes. The ankle joint and subtalar talar joints are normal. There is mild dorsal tarsometatarsal spurring on lateral view. XR/XR foot RT min 3V IMPRESSION: Bilateral calcaneal heel and retrocalcaneal enthesophytes. No visible acute fracture or dislocation seen. There is mild dorsal tarsometatarsal spurring left foot. No abnormal soft tissue swelling seen.
[2021-03-29 16:12] VITALS: BP 134/59; PULSE 80; RESP 18; TEMP 37.1; O2SAT 100; BMI 33.9
--- NOTE | 2021-03-29 17:31 | ED.LOWEXIN ---
HPI - Extremity Injury (Lower) General Chief Complaint: Extremity Injury, Lower Stated Complaint: leg swelling, blood clots Time Seen by Provider: 03/29/21 16:19 Source: patient Mode of arrival: ambulatory Limitations: no limitations History of Present Illness HPI Narrative: 50-year-old female with a history of recurring DVTs in her right lower extremity presents with bilateral heel pain for the last week. Feels that both her legs are swollen in heavy. States that her heel pain is much worse when she gets up out of bed in the morning, and she has to walk on her tip toes in the morning. It is hard to stand flat. Related Data Home Medications Medication Instructions Recorded Confirmed phentermine 37.5 mg capsule 37.5 mg PO QAM 05/24/20 02/08/21 doxepin 10 mg capsule 10 mg PO BEDTIME 05/25/20 02/08/21 gabapentin 600 mg tablet 600 mg PO TID 05/25/20 02/08/21 hydroxyzine HCl 25 mg tablet 25 mg PO TID PRN 05/25/20 02/08/21 ropinirole 1 mg tablet 1 mg PO BEDTIME 05/25/20 02/08/21 sertraline 100 mg tablet 100 mg PO DAILY 05/25/20 02/08/21 Previous Rx's Medication Instructions Recorded cyclobenzaprine 10 mg tablet 10 mg PO TID #14 tab 05/22/20 apixaban 5 mg tablet (Eliquis) 5 mg PO BID #60 tab 02/01/21 cholecalciferol (vitamin D3) 50 50 mcg PO DAILY 90 Days #90 cap 02/08/21 mcg (2,000 unit) capsule mecobalamin (vitamin B12) 1,000 1,000 mcg SUBLINGUAL DAILY 90 Days 02/08/21 mcg disintegrating #90 tab tablet,sublingual bisacodyl 5 mg tablet,delayed 10 mg PO ONCE 1 Days #2 tab 02/21/21 release (Dulcolax (bisacodyl)) omeprazole 20 mg capsule,delayed 20 mg PO DAILY #30 cap 02/21/21 release polyethylene glycol 3350 17 238 g PO ONCE 1 Days #238 g 02/21/21 gram/dose oral powder (Miralax) prednisone 20 mg tablet 40 mg PO DAILY 5 Days #10 tab 03/29/21 Allergies Allergy/AdvReac Type Severity Reaction Status Date / Time No Known Allergies Allergy Verified 03/29/21 16:11 Review of Systems Review of Systems: Constitutional : No Weight loss, No Fever, No Chills, No Night Sweats,No Fatigue, No Malaise ENT/Mouth : No Hearing loss, No Ear Pain, No Nasal Congestion, NoSinus Pain, No Hoarseness, No sore throat, No Rhinorrhea, NoSwallowing Difficulty Eyes: No Eye Pain, No Swelling, No Redness, No Foreign Body, NoDischarge, No Vision Changes Cardiovascular : No Chest Pain, No SOB, No Dyspnea on Exertion, NoOrthopnea, No Edema, No Palpitations Respiratory : No Cough, No Sputum, No Wheezing, No Smoke Exposure, No Dyspnea Musculoskeletal : heel pain, swelling bilateral legs Skin : No Skin Lesions, No rash Neuro : No Weakness, No Numbness, No Paresthesias, No Loss ofConsciousness, No Dizziness, No Headache Psych : No Anxiety/Panic, No Depression, No SI/HI/AH/VH, No Social Issues, Yes all other systems are reviewed and are negative [facility] Past Medical History Medical History Anxiety Dyslipidemia GERD (gastroesophageal reflux disease) Hx of deep venous thrombosis Hypercoagulable state Impaired fasting glucose Lumbar degenerative disc disease Obesity (BMI 30-39.9) Pain and swelling of right lower extremity Peripheral neuropathy Restless leg syndrome Stasis edema of both lower extremities Vitamin B12 deficiency Vitamin D deficiency Surgical History History of section History of endometrial ablation History of eye surgery History of surgery History of tubal ligation Family History Family History (Updated 02/21/21 @ 11:29 by Juliet Paul PA-C) Father Colon cancer Mother Diabetes Breast cancer Sister Colon cancer Social History Social History Housing: Apartment Alcohol intake: never Patient Tobacco Use Status: Never used Tobacco Second Hand Smoke Exposure: Yes Advance Directives: No Advance Directives Information Provided: No Patient : No service: No Current occupational status: employed 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 Physical Exam Vital Signs: Vital Signs: Last Vital Signs Temp 98.7 F 03/29/21 16:12 Pulse 80 03/29/21 16:12 Resp 18 03/29/21 16:12 BP 134/59 L 03/29/21 16:12 Pulse Ox 100 03/29/21 16:12 Body Mass Index 33.9 Const: General: cooperative, no acute distress, well developed, alert and awake Nutritional Appearance: well nourished Orientation/consciousness: patient oriented x3 Limitations: no limitations Eyes: Conjunctivae: conjunctivae normal Pupils: Equal, round and reactive pupils present EOM: EOMs intact bilaterally Neck: Neck: Yes full ROM, Yes no lymphadenopathy and Yes supple Resp: Effort & Inspection: normal respiratory effort and able to speak in complete sentences Auscultation: clear to auscultation bilaterally, no crackles, no rales, no rhonchi and no wheezes Cardio: Rate: regular rate Rhythm: regular rhythm Heart sounds: S1 normal heart sound present and S2 normal heart sound present Skin: General skin exam: no rashes or lesions noted Neuro: General: patient oriented x3, tone normal and moves all extremities Cranial nerves: Yes Equal, round and reactive pupils present Extrem: Other: Bilateral heel tenderness to palpation, right lower extremity calf tenderness, patient has intact bilateral lower extremity pulses, sensation, motor strength and DTRs Psych: Appearance: grossly normal Affect: normal affect Attitude: cooperative Thought process: Normal thought process present Course Course Course Narrative: US shows: Redemonstration of chronic DVT right common femoral vein, nonobstructive. No DVT demonstrated in the left lower extremity. XR shows: Bilateral calcaneal heel and retrocalcaneal enthesophytes. No visible acute fracture or dislocation seen. There is mild dorsal tarsometatarsal spurring left foot. No abnormal soft tissue swelling seen.? This looks like plantar fasciitis bilaterally. Counseled patient to get heel gel inserts, counseled her to buy shoes with a heel cushion, counseled her to call her primary care provider for physical therapy referral, prescribed prednisone Discharge Plan Discharge Clinical Impression: Heel pain, bilateral Patient Disposition: Home, Self-Care Additional Instructions: Please get gel heel inserts for your shoes. Please buy new shoes that have a good heel cushion. Please call your primary care provider for referral to physical therapy. Please try to stretch at your calf as we discussed. Please take the prednisone as I prescribed. Please return to emergency room for any new or concerning symptoms. Prescriptions: New prednisone 20 mg tablet 40 mg PO DAILY 5 Days Qty: 10 RF: 0 No Action cyclobenzaprine 10 mg tablet 10 mg PO TID Qty: 14 RF: 0 Eliquis 5 mg Tablet 5 mg PO BID Qty: 60 RF: 4 phentermine 37.5 mg capsule 37.5 mg PO QAM RF: 0 gabapentin 600 mg tablet 600 mg PO TID RF: 0 sertraline 100 mg tablet 100 mg PO DAILY RF: 0 doxepin 10 mg capsule 10 mg PO BEDTIME RF: 0 hydroxyzine HCl 25 mg tablet 25 mg PO TID PRN (Reason: Anxiety) RF: 0 ropinirole 1 mg tablet 1 mg PO BEDTIME RF: 0 mecobalamin (vitamin B12) 1,000 mcg tablet,disintegrating 1,000 mcg sublingual DAILY 90 Days Qty: 90 RF: 3 cholecalciferol (vitamin D3) 50 mcg (2,000 unit) capsule 50 mcg PO DAILY 90 Days Qty: 90 RF: 3 omeprazole 20 mg capsule,delayed release(DR/EC) 20 mg PO DAILY Qty: 30 RF: 5 bisacodyl [Dulcolax (bisacodyl)] 5 mg tablet,delayed release (DR/EC) 10 mg PO ONCE 1 Days Qty: 2 RF: 0 polyethylene glycol 3350 [Miralax] 17 gram/dose powder 238 g PO ONCE 1 Days Qty: 238 RF: 0 Stand Alone Forms: Work/School Release Interventions: ED Discharge Assessment Last Done: 03/29/21 19:19 Discharge Date/Time: 03/29/21 19:21
== END 2021-03-29 19:21 | disposition home or self-care (01) ==
PROVIDERS: Emergency Provider Emergency Medicine; PCP Internal Medicine
DX: M79.672 Pain in left foot (principal); M79.671 Pain in right foot; R60.0 Localized edema; Z86.718 Personal history of other venous thrombosis and embolism; Z79.01 Long term (current) use of anticoagulants; Z79.899 Other long term (current) drug therapy
CPT/HCPCS: 73630; 93970; 99283; 99284

== ENCOUNTER 2021-04-13 10:47 | Day surgery (SDC) | payer OTHER, SELFPAY ==
[2021-04-09 10:53] VITALS: BMI 34.3
[2021-04-13] MEDS: Lactated Ringers 1,000 ML 100 ML IVCONT (12:05)
[2021-04-13 12:11] VITALS: BP 144/84; PULSE 58; RESP 16; TEMP 36.6; O2SAT 98
--- NOTE | 2021-04-13 12:27 | P.HPSUR_ITS ---
Pre-Procedural Eval Section A Date of Service: 04/13/21 The patient is an INPATIENT: No The History & Physical has been completed within 30 days and I have reviewed it.: No Section B Chief Complaint: GERD, Screening Details of Present Illness: Colon cancer screen, GERD Relevant Family History (Specify if Yes): Yes Relevant Social History: None Present Medications: see Short Stay Collaborative assessment Medical History: Significant History (Anxiety Dyslipidemia GERD (gastroesophageal reflux disease) Hx of deep venous thrombosis Hypercoagulable state Impaired fasting glucose Lumbar degenerative disc disease Obesity (BMI 30- 39.9) Pain and swelling of right lower extremity Peripheral neuropathy Restless leg syndrome Stasis edema of both l) History of Previous Operations: Relevant previous surgery/procedure and date(s) (History of section History of endometrial ablation History of eye surgery History of surgery History of tubal ligation) Allergies: Allergies Allergy/AdvReac Type Severity Reaction Status Date / Time No Known Allergies Allergy Verified 04/09/21 10:53 Review of Systems Sugical H&P ROS: Negative: Constitution, Cardiovascular and Respiratory and Yes, Specify: Gastrointestinal (GERD) Exam Surgical H&P Exam: Normal: Heart, Normal: Lungs, Normal: Extremities and Normal: Abdomen Plan Diagnosis/Plan: Unchanged I have reviewed the history and physical and performed a pertinent physical examination on my patient. No changes have occurred unless specified.
--- NOTE | 2021-04-13 12:56 | P.CONAN_ITS ---
HPI - Anesthesia Eval Consult details Narrative: 50 yo female patient for EGD, colonoscopy PMF Active Problems Active Problems: All Active Problems (Updated 04/05/21 @ 19:31 by Nik Hunt MD) Flank pain (Acute) Recurrent deep vein thrombosis (DVT) of right lower extremity (Acute). On eliquis. Last dose 04/09/21 Atypical hyperplasia of breast (Acute) Annual physical exam (Acute) Family history of malignant neoplasm of colon in first degree relative diagnosed when younger than 60 years of age (Acute) FPC (current) use of anticoagulants (Acute) Pain in both feet (Acute) Pain and swelling of right lower extremity (Acute) Obesity (BMI 30-39.9) (Acute) Anxiety (Acute) GERD (gastroesophageal reflux disease) (Acute) Restless leg syndrome (Acute) Impaired fasting glucose (Acute) Stasis edema of both lower extremities (Acute) Vitamin D deficiency (Acute) Vitamin B12 deficiency (Acute) Peripheral neuropathy (Acute) Lumbar degenerative disc disease (Acute) Dyslipidemia (Acute) Hypercoagulable state (Acute) Past Medical History Medical History Anxiety Dyslipidemia GERD (gastroesophageal reflux disease) Hx of deep venous thrombosis Hypercoagulable state Impaired fasting glucose Lumbar degenerative disc disease Obesity (BMI 30-39.9) Pain and swelling of right lower extremity Peripheral neuropathy Restless leg syndrome Stasis edema of both lower extremities Vitamin B12 deficiency Vitamin D deficiency Family History Family History (Updated 02/21/21 @ 11:29 by Juliet Paul PA-C) Father Colon cancer Mother Diabetes Breast cancer Sister Colon cancer Family history of problems with anesthesia: No Surgical History Surgical History History of section History of endometrial ablation History of eye surgery History of surgery History of tubal ligation Hx of colonoscopy History of Problems with Anesthesia: No Social History Social History Housing: Apartment Alcohol intake: never Patient Tobacco Use Status: Never used Tobacco Second Hand Smoke Exposure: Yes Are you DNR?: No Advance Directives: No Advance Directives Information Provided: No Advance Directives on File: No Nutrition Risks: No Nutritional Risk Patient : No (hx uterine ablation ~2014) : No service: No Current occupational status: employed Current occupation: [employer] Meds Allergies Allergy/AdvReac Type Severity Reaction Status Date / Time No Known Allergies Allergy Verified 04/09/21 10:53 Home Medications Medication Instructions Recorded Confirmed Last Taken Type phentermine 37.5 mg capsule 37.5 mg PO QAM 05/24/20 04/09/21 Unknown History doxepin 10 mg capsule 10 mg PO BEDTIME 05/25/20 04/09/21 Unknown History ropinirole 1 mg tablet 1 mg PO BEDTIME 05/25/20 04/09/21 Unknown History sertraline 100 mg tablet 100 mg PO DAILY 05/25/20 04/09/21 Unknown History Exam Exam Date and Time: April 13, 2021 1256 Height,Weight and Vital Signs: Height 5 ft 6 in Weight 96.615 kg Last Vital Signs Temp 97.9 F 04/13/21 12:11 Pulse 58 04/13/21 12:11 Resp 16 04/13/21 12:11 BP 144/84 H 04/13/21 12:11 Pulse Ox 98 04/13/21 12:11 Airway Mallampati Class: II TM Dist: >3cm Neck ROM: Full Loose/Missing/Broken Teeth: No Heart: RRR Lungs: CTAB Assessment and Plan Final Anesthetic Review Family History of Problems with Anesthesia: No History of Problems with Anesthesia: No NPO: Yes ASA Class: III Final Preanesthetic Review: No Changes in Pt Med Stat, Meds/Allgs Chart Reviewed, Consent Obtained/Reviewed and Anes Risks/Benef Reviewed Patient Risk: Intermediate Procedure Risk: Low Assessment/Block/Sedation in SS: Assess/Block/Sedation-SS Anesthetic Plan Anesthetic Plan: MAC: Disposition: Standard PACU
--- NOTE | 2021-04-13 13:15 | PM.OP ---
Brief Operative Note Date of Service: 04/13/21 Pre-op diagnosis: Colon cancer screening, family history of colon cancer, GERD, anemia Post-op diagnosis: other (Gastritis, diverticulosis, hemorrhoids) Procedure: FLEXIBLE TRANSORAL UPPER GASTROINTESTINAL ENDOSCOPY AND COLONOSCOPY TILL CECUM UPPER ENDOSCOPY Consent: Indications for the procedure and potential complications of bleeding, perforation, reaction to medications and missed diagnosis were discussed with the patient and informed consent was obtained. Instrument: Olympus GIF H 190 mid size upper endoscope Monitoring: Vital signs and clinical assessment, continuous EKG monitoring, Pulse oximetry, Carbon Dioxide monitoring and blood pressure monitoring were done throughout the procedure. Procedure: The patient was placed in the left lateral decubitis position and pre-procedure medications were administered and a bite block was placed. The endoscope was inserted into the mouth and advanced under direct vision to the third part of duodenum. A careful inspection was made as the upper endoscope was withdrawn including a retroflexed examination of the proximal stomach; Findings and interventions are described below. Findings: Larynx: Normal Esophagus: GE junction at 38 cms.. No esophagitis or Morris's. Stomach: Mild gastric erythema. Biopsies were obtained. Grade 2 flap valve on retroflexed examination of the cardia. Duodenum: Normal bulb and descending duodenum. Biopsies were obtained from 3rd part of duodenum to check for celiac sprue. Intervention: Biopsies as noted above COLONOSCOPY PROCEDURE NOTE Consent: Indications for the procedure and potential complications of bleeding, perforation, reaction to medications and missed diagnosis were discussed with the patient and informed consent was obtained. Instrument: Olympus PCF H 190 L variable stiffness pediatric colonoscope Monitoring: Vital signs and clinical assessment, intermittent blood pressure monitoring, continuous EKG monitoring, Pulse oximetry and Carbon Dioxide monitoring were done throughout the procedure. Colon withdrawl time was 15 minutes. Procedure: The patient was placed in the left lateral decubitis position and pre-procedure medications were administered. After a digital rectal examination of the ano-rectum, the video colonoscope was inserted into the rectum and advanced through the colon to the cecum. The colonoscope was slowly withdrawn in a retrograde panoramic fashion and the colon mucosa was carefully examined including a retroflexed view of the rectum. Findings and interventions are described below. Procedure Difficulty: : Without difficulty Findings: Terminal Ileum: Not evaluated Cecum: Normal Ascending Colon: Normal Transverse Colon: Normal Descending Colon: Normal Sigmoid Colon: Moderate diverticulosis Rectum: Normal Ano-rectum: Small internal hemorrhoids Colon preparation: Good after some irrigation Impression and Post Procedure Diagnosis: Endoscopy Findings: STOMACH: Gastritis DUODENUM: Normal - biopsied to check for celiac sprue Colonoscopy Findings: No polyps were detected Moderate diverticulosis seen in the sigmoid colon Small hemorrhoids on retroflexed exam. Plan: Await pathology results Patient has an appointment on 05/03/21 in the GI Clinic with PAL[facility] Goode. Repeat Colonoscopy in 5 years due to positive family history of colon cancer. Above findings were reviewed with the patient and GERD and diverticulosis handouts were given in the discharge area Surgeon: Lizz Pedro MD Anesthesia: MAC (Connie San CRNA) Was an Strategic Planning Consultant used for this Procedure?: Yes Strategic Planning Consultant: Aurea Carney Estimated blood loss (mL): 0 Pathology: other ( A. small bowel, R/O Sprue B. gastric antrum, R/O H. pylori) Condition: stable Disposition: PACU
--- NOTE | 2021-04-13 13:17 | W.PM.OPN ---
Operative Note Operative Note Date of Service: 04/13/21 Narrative: Pre-op diagnosis:?Colon cancer screening, family history of colon cancer, GERD, anemia Post-op diagnosis:?other (Gastritis, diverticulosis, hemorrhoids) Procedure:? FLEXIBLE TRANSORAL UPPER GASTROINTESTINAL ENDOSCOPY AND COLONOSCOPY TILL CECUM UPPER ENDOSCOPY Consent:?Indications for the procedure and potential complications of bleeding, perforation, reaction to medications and missed diagnosis were discussed with the patient and informed consent was obtained. Instrument:?Olympus GIF H 190 mid size upper endoscope Monitoring: Vital signs and clinical assessment, continuous EKG monitoring, Pulse oximetry, Carbon Dioxide monitoring and blood pressure monitoring were done throughout the procedure. Procedure:?The patient was placed in the left lateral decubitis position and pre-procedure medications were administered and a bite block was placed. The endoscope was inserted into the mouth and advanced under direct vision to the third part of duodenum. A careful inspection was made as the upper endoscope was withdrawn including a retroflexed examination of the proximal stomach; Findings and interventions are described below. Findings: Larynx:? Normal Esophagus:?GE junction at 38 cms.. No esophagitis or Morris's. Stomach:?Mild gastric erythema. Biopsies were obtained. Grade 2 flap valve on retroflexed examination of the cardia. Duodenum:?Normal bulb and descending duodenum.? Biopsies were obtained from 3rd part of duodenum to check for celiac sprue. Intervention:?Biopsies as noted above COLONOSCOPY PROCEDURE NOTE Consent:?Indications for the procedure and potential complications of bleeding, perforation, reaction to medications and missed diagnosis were discussed with the patient and informed consent was obtained. Instrument:?Olympus PCF H 190 L variable stiffness pediatric colonoscope Monitoring:?Vital signs and clinical assessment, intermittent blood pressure monitoring, continuous EKG monitoring, Pulse oximetry and Carbon Dioxide monitoring were done throughout the procedure. Colon withdrawl time was 15 minutes. Procedure:?The patient was placed in the left lateral decubitis position and pre-procedure medications were administered. After a digital rectal examination of the ano-rectum, the video colonoscope was inserted into the rectum and advanced through the colon to the cecum. The colonoscope was slowly withdrawn in a retrograde panoramic fashion and the colon mucosa was carefully examined including a retroflexed view of the rectum. Findings and interventions are described below. Procedure Difficulty:?: Without difficulty Findings: Terminal Ileum: Not evaluated Cecum:? Normal Ascending Colon:??Normal Transverse Colon:??Normal Descending Colon:? Normal Sigmoid Colon:??Moderate diverticulosis Rectum:??Normal Ano-rectum:??Small internal hemorrhoids Colon preparation:? Good after some irrigation Impression and Post Procedure Diagnosis: Endoscopy Findings: STOMACH: Gastritis DUODENUM: Normal - biopsied to check for celiac sprue Colonoscopy Findings: No polyps were detected Moderate diverticulosis seen in the sigmoid colon Small hemorrhoids on retroflexed exam. Plan: Await pathology results Patient has an appointment on 05/03/21 in the GI Clinic with PAL[facility] Goode. Repeat Colonoscopy in 5 years due to positive family history of colon cancer. Above findings were reviewed with the patient and? GERD and diverticulosis handouts were given in the discharge area Surgeon:?Lizz Pedro MD Anesthesia:?MAC (Connie San CRNA) Was an Solar Designer used for this Procedure?:?Yes Solar Designer:?Aurea Carney Estimated blood loss (mL):?0 Pathology:?other ( A. small bowel, R/O Sprue? B. gastric antrum, R/O H. pylori) Condition:?stable Disposition:?PACU
[2021-04-13 14:14] VITALS: BP 116/68; PULSE 63; RESP 14; TEMP 36.2; O2SAT 98
[2021-04-13 14:29] VITALS: BP 135/78; PULSE 70; RESP 16; TEMP 36.2; O2SAT 98
== END 2021-04-13 15:10 | disposition home or self-care (01) ==
PROVIDERS: PCP Internal Medicine; Visit Provider Internal Medicine Gastroenterology
PROC: (CPT 45378; principal; 2021-04-13 12:30)
DX: Z12.11 Encounter for screening for malignant neoplasm of colon (principal); Z80.0 Family history of malignant neoplasm of digestive organs; K57.30 Diverticulosis of large intestine without perforation or abscess without bleeding; K64.8 Other hemorrhoids; K21.9 Gastro-esophageal reflux disease without esophagitis; D64.9 Anemia, unspecified; K29.50 Unspecified chronic gastritis without bleeding; I82.401 Acute embolism and thrombosis of unspecified deep veins of right lower extremity; D68.59 Other primary thrombophilia; R73.02 Impaired glucose tolerance (oral); Z79.01 Long term (current) use of anticoagulants; Z79.899 Other long term (current) drug therapy
CPT/HCPCS: 45378; 43239; 88305; 88342; J2250

== ENCOUNTER 2021-06-13 06:22 | Outpatient (REF) | payer OTHER, SELFPAY ==
[2021-06-13 06:26] LABS: MANUAL DIFF FLAG NO
[2021-06-13 07:20] LABS: Basophils Percent Auto 0.6 % (0-2); Eosinophils Absolute Auto 0.2 X10*3/uL (0.0-0.4); Eosinophils Percent Auto 3.5 % (0-4); Hemoglobin 11.6 g/dl (12.0-16.0); Imm Gran Abs Auto 0.02 X10*3/uL (0.00-0.03); Imm Gran Pct Auto 0.3 % (0.0-0.4); Lymphocytes Absolute Auto 2.7 X10*3/uL (1.2-4.9); Lymphocytes Percent Auto 40.7 % (20-40); Mean Corpuscular HGB Conc 31.4 g/dl (31.0-35.0); Mean Corpuscular Hemoglobin 25.6 pg (27.0-33.0); Mean Corpuscular Volume 81.7 fL (80.0-98.0); Mean Platelet Volume 9.3 fL (9.4-12.3); Monocytes Absolute Auto 0.4 X10*3/uL (0.1-1.2); Monocytes Percent Auto 6.4 % (2-11); Neutrophils Absolute Auto 3.2 x10*3/uL (2.0-8.3); Neutrophils Percent Auto 48.5 % (45-73); Platelet Count 316 X10*3/uL (160-400); Red Blood Count 4.53 X10*6/uL (4.20-5.50); Red Cell Distribution Width 14.2 % (11.0-16.0); White Blood Count 6.6 X10*3/uL (4.8-10.8)
[2021-06-13 07:31] LABS: Estimated Average Glucose 140 mg/dL; Hemoglobin A1c % 6.5 %
[2021-06-13 07:44] LABS: Alanine Aminotransferase 22 U/L (0-31); Albumin Level 4.1 g/dL (3.5-5.0); Alkaline Phosphatase 77 U/L (39-117); Anion Gap 12 (12-20); Aspartate Amino Transferase 22 U/L (5-31); Bilirubin Total 0.8 mg/dL (0.0-1.0); Blood Urea Nitrogen 16 mg/dL (9-16); Calcium 9.5 mg/dL (8.4-10.2); Carbon Dioxide 29 mmol/L (22-29); Chloride 104 mmol/L (96-108); Cholesterol 171 mg/dL; Estimated Glomerular Filt Rate > 60; Glucose Fasting 117 mg/dL (60-99); HDL Cholesterol 31 mg/dL; LDL Cholesterol Calculated 85 mg/dl; Potassium 4.4 mmol/L (3.3-5.1); Sodium 141 mmol/L (135-145); Total Protein 7.6 g/dL (6.5-8.0); Triglycerides 276 mg/dL
[2021-06-13 08:01] LABS: Appearance Urine HAZY; Color Urine YELLOW; Glucose Urine UA NEG (NEG); Leukocyte Esterase Urine NEG (NEG); Nitrite Urine NEG (NEG); Specific Gravity - Urine >= 1.030 (1.005-1.025); Urine Blood NEG (NEG); Urine Ketones NEG (NEG); Urine Protein NEG (NEG-TRACE)
[2021-06-13 08:05] LABS: TSH reflex Free T4 3.53 uIU/mL (0.32-4.0); Vitamin D 25-OH Total 18.4 ng/mL (>30)
[2021-06-13 08:44] LABS: Folate 15.6 ng/mL (> or = 4.0); Vitamin B12 298 pg/mL (200-900)
== END 2021-06-13 06:23 | disposition home or self-care (01) ==
LOC: HO.LAB 06:22
PROVIDERS: PCP Internal Medicine; Visit Provider Internal Medicine
DX: R73.01 Impaired fasting glucose (principal); E53.8 Deficiency of other specified B group vitamins; I10 Essential (primary) hypertension; E78.5 Hyperlipidemia, unspecified; E66.9 Obesity, unspecified; E55.9 Vitamin D deficiency, unspecified; E78.00 Pure hypercholesterolemia, unspecified
CPT/HCPCS: 36415; 80053; 80061; 81003; 82306; 82607; 82746; 83036; 84443; 85025

== ENCOUNTER 2021-07-30 09:54 | Outpatient (REF) | payer OTHER, SELFPAY ==
[2021-07-30 15:14] LABS: CT PCR DETECTED (Not Detect.); NG PCR NOT DETECTED (Not Detect.)
[2021-07-31 09:06] LABS: BV Int Neg Control Negative (Negative); BV Int Pos Control Positive (Positive)
[2021-08-03 13:37] LABS: HPV mRNA E6/E7 rflx Not Detected (Not Detected)
== END 2021-07-30 09:55 | disposition home or self-care (01) ==
LOC: HO.LAB 09:54
PROVIDERS: PCP Internal Medicine; Visit Provider Advanced Practice Midwife
DX: Z01.419 Encounter for gynecological examination (general) (routine) without abnormal findings (principal); Z11.51 Encounter for screening for human papillomavirus (HPV); Z20.2 Contact with and (suspected) exposure to infections with a predominantly sexual mode of transmission; I82.401 Acute embolism and thrombosis of unspecified deep veins of right lower extremity; I10 Essential (primary) hypertension; E66.9 Obesity, unspecified
CPT/HCPCS: 87480; 87491; 87510; 87591; 87624; 87660; 88142

== ENCOUNTER → 2021-09-04 12:04 | Outpatient (BNVA) | payer OTHER, SELFPAY | PROVIDERS: PCP Internal Medicine; Visit Provider Physician Assistant | DX: K21.9 Gastro-esophageal reflux disease without esophagitis (principal); K57.30 Diverticulosis of large intestine without perforation or abscess without bleeding; Z80.0 Family history of malignant neoplasm of digestive organs | CPT/HCPCS: 99212 ==

== ENCOUNTER → 2021-09-25 10:17 | Outpatient (BNVA) | payer OTHER, SELFPAY | PROVIDERS: PCP Internal Medicine; Visit Provider Surgery Vascular Surgery | DX: I82.401 Acute embolism and thrombosis of unspecified deep veins of right lower extremity (principal) | CPT/HCPCS: 99202 ==

== ENCOUNTER 2021-09-28 07:05 | Outpatient (REF) | payer OTHER, SELFPAY ==
[2021-09-28 07:19] LABS: MANUAL DIFF FLAG NO
[2021-09-28 07:38] LABS: Basophils Percent Auto 0.2 % (0-2); Eosinophils Percent Auto 0.1 % (0-4); Imm Gran Abs Auto 0.07 X10*3/uL (0.00-0.03); Imm Gran Pct Auto 0.6 % (0.0-0.4); Lymphocytes Absolute Auto 1.8 X10*3/uL (1.2-4.9); Lymphocytes Percent Auto 14.5 % (20-40); Mean Corpuscular HGB Conc 31.6 g/dl (31.0-35.0); Mean Corpuscular Hemoglobin 26.7 pg (27.0-33.0); Mean Corpuscular Volume 84.4 fL (80.0-98.0); Mean Platelet Volume 8.8 fL (9.4-12.3); Monocytes Absolute Auto 0.8 X10*3/uL (0.1-1.2); Monocytes Percent Auto 6.1 % (2-11); Neutrophils Absolute Auto 9.8 x10*3/uL (2.0-8.3); Neutrophils Percent Auto 78.5 % (45-73); Platelet Count 379 X10*3/uL (160-400); Red Cell Distribution Width 14.9 % (11.0-16.0); White Blood Count 12.5 X10*3/uL (4.8-10.8)
[2021-09-28 07:54] LABS: Alanine Aminotransferase 16 U/L (0-31); Alkaline Phosphatase 94 U/L (39-117); Anion Gap 14 (12-20); Aspartate Amino Transferase 13 U/L (5-31); Bilirubin Total 0.8 mg/dL (0.0-1.0); Blood Urea Nitrogen 14 mg/dL (9-16); Calcium 9.7 mg/dL (8.4-10.2); Carbon Dioxide 26 mmol/L (22-29); Chloride 103 mmol/L (96-108); Cholesterol 163 mg/dL; Estimated Glomerular Filt Rate > 60; Glucose Fasting 100 mg/dL (60-99); HDL Cholesterol 55 mg/dL; LDL Cholesterol Calculated 92 mg/dl; Potassium 4.5 mmol/L (3.3-5.1); Sodium 138 mmol/L (135-145); Total Protein 7.4 g/dL (6.5-8.0); Triglycerides 80 mg/dL
[2021-09-28 08:04] LABS: Estimated Average Glucose 128 mg/dL; Hemoglobin A1c % 6.1 %
[2021-09-28 08:08] LABS: Appearance Urine HAZY; Color Urine YELLOW; Glucose Urine UA NEG (NEG); Leukocyte Esterase Urine NEG (NEG); Nitrite Urine NEG (NEG); Specific Gravity - Urine >= 1.030 (1.005-1.025); UACC Culture Trigger NO; Urine Blood TRACE (NEG); Urine Ketones 5 MG/DL (NEG); Urine Protein TRACE MG/DL (NEG-TRACE)
[2021-09-28 08:15] LABS: TSH reflex Free T4 1.31 uIU/mL (0.32-4.0); Vitamin D 25-OH Total 16.1 ng/mL (>30)
[2021-09-28 08:54] LABS: Bacteria Urine 1+ /LPF; Mucus Urine 2+ /LPF; RBC Urine 0-2 /HPF (0); Squamous Epithelial Cell Urine 2+ /LPF; WBC Urine 0-2 /HPF (0-4)
== END 2021-09-28 07:06 | disposition home or self-care (01) ==
LOC: HO.LAB 07:05
PROVIDERS: PCP Internal Medicine; Visit Provider Internal Medicine
DX: I10 Essential (primary) hypertension (principal); E78.00 Pure hypercholesterolemia, unspecified; E11.9 Type 2 diabetes mellitus without complications; E55.9 Vitamin D deficiency, unspecified
CPT/HCPCS: 36415; 80053; 80061; 81001; 81003; 82306; 83036; 84443; 85025

== ENCOUNTER 2021-10-06 07:26 | Outpatient (REF) | payer OTHER, SELFPAY ==
--- NOTE | ~2021-10-06 | MM_ITS ---
EXAMINATION: MM SCREENING DIGITAL BREAST TOMOSYNTHESIS, BILATERAL CLINICAL INFORMATION: Screening. Asymptomatic. History atypical ductal hyperplasia left breast stereotactic biopsy 11/16/2012 status post excision with no upstaging 12/21/2012. COMPARISON: Mammography: 08/10/2020, 09/23/2018, 07/25/2017 TECHNIQUE: Digital breast tomosynthesis is performed in both the craniocaudal and mediolateral oblique views along with computer-aided detection (CAD). Synthesized 2D images are generated from the tomosynthesis. FINDINGS: There are scattered areas of fibroglandular density (ACR BI-RADS breast composition Category b). Parenchymal pattern is similar to prior studies and there is no interval mass or architectural abnormality or interval suspicious calcifications. Some residual stable punctate calcifications are again noted inferior posterior medial left breast. The axilla and skin contours are unremarkable. MM/MM tomosynthesis screening BI IMPRESSION: No mammographic evidence of malignancy. ASSESSMENT: BI-RADS 2: Benign RECOMMENDATION: 1. Routine annual mammography screening. 2. Additional annual adjunct screening with breast MRI as clinical risk factors warrant. This patient's information was entered into a reminder system with a target due date for their next mammogram.
== END 2021-10-06 07:27 | disposition home or self-care (01) ==
LOC: HO.MAMMO 07:26
PROVIDERS: PCP Internal Medicine; Visit Provider Internal Medicine
DX: Z12.31 Encounter for screening mammogram for malignant neoplasm of breast (principal)
CPT/HCPCS: 77063; 77067

== ENCOUNTER 2021-10-31 14:48 | Outpatient (REF) | payer OTHER, SELFPAY ==
[2021-11-01 01:50] LABS: CT PCR NOT DETECTED (Not Detect.); NG PCR NOT DETECTED (Not Detect.)
[2021-11-01 08:28] LABS: HIV AB/AG Nonreactive (Nonreactive)
[2021-11-01 09:39] LABS: HBsAGNum1 0.14 S/CO (0.00-0.99); Hepatitis B Surface Antigen Negative (Negative); ~HepC Num1 0.09 S/CO (0.00-0.79); ~Hepatitis C Antibody Nonreactive (Nonreactive)
[2021-11-01 09:59] LABS: HIV Num 1 0.07 S/CO (0.00-0.99)
[2021-11-01 11:10] LABS: BV Int Neg Control Negative (Negative); BV Int Pos Control Positive (Positive)
[2021-11-02 08:38] LABS: Syphilis Screen Nonreactive (Nonreactive)
== END 2021-10-31 14:49 | disposition home or self-care (01) ==
LOC: HO.LAB 14:48
PROVIDERS: PCP Internal Medicine; Visit Provider Advanced Practice Midwife
DX: Z01.411 Encounter for gynecological examination (general) (routine) with abnormal findings (principal); A74.9 Chlamydial infection, unspecified; Z20.2 Contact with and (suspected) exposure to infections with a predominantly sexual mode of transmission
CPT/HCPCS: 36415; 86780; 86803; 87340; 87389; 87480; 87491; 87510; 87591; 87660; 99212

== ENCOUNTER → 2022-01-01 10:14 | Outpatient (BNVA) | payer OTHER, SELFPAY | PROVIDERS: PCP Internal Medicine; Visit Provider Surgery Vascular Surgery | DX: I83.11 Varicose veins of right lower extremity with inflammation (principal); Z86.718 Personal history of other venous thrombosis and embolism; Z79.01 Long term (current) use of anticoagulants | CPT/HCPCS: 99212 ==

== ENCOUNTER 2022-01-23 06:35 | Outpatient (REF) | payer OTHER, SELFPAY ==
[2022-01-23 06:46] LABS: MANUAL DIFF FLAG NO
[2022-01-23 07:37] LABS: Basophils Absolute Auto 0.1 X10*3/uL (0.0-0.2); Basophils Percent Auto 0.7 % (0-2); Eosinophils Absolute Auto 0.2 X10*3/uL (0.0-0.4); Eosinophils Percent Auto 2.6 % (0-4); Hematocrit 37.4 % (37.0-47.0); Hemoglobin 11.8 g/dl (12.0-16.0); Imm Gran Abs Auto 0.03 X10*3/uL (0.00-0.03); Imm Gran Pct Auto 0.4 % (0.0-0.4); Lymphocytes Absolute Auto 2.5 X10*3/uL (1.2-4.9); Lymphocytes Percent Auto 33.5 % (20-40); Mean Corpuscular HGB Conc 31.6 g/dl (31.0-35.0); Mean Corpuscular Hemoglobin 25.8 pg (27.0-33.0); Mean Corpuscular Volume 81.8 fL (80.0-98.0); Mean Platelet Volume 9.4 fL (9.4-12.3); Monocytes Absolute Auto 0.5 X10*3/uL (0.1-1.2); Monocytes Percent Auto 7.2 % (2-11); Neutrophils Absolute Auto 4.1 x10*3/uL (2.0-8.3); Neutrophils Percent Auto 55.6 % (45-73); Platelet Count 312 X10*3/uL (160-400); Red Blood Count 4.57 X10*6/uL (4.20-5.50); Red Cell Distribution Width 13.6 % (11.0-16.0); White Blood Count 7.4 X10*3/uL (4.8-10.8)
[2022-01-23 07:55] LABS: Alanine Aminotransferase 19 U/L (0-31); Albumin Level 4.1 g/dL (3.5-5.0); Alkaline Phosphatase 85 U/L (39-117); Anion Gap 11 (12-20); Aspartate Amino Transferase 23 U/L (5-31); Bilirubin Total 0.7 mg/dL (0.0-1.0); Blood Urea Nitrogen 17 mg/dL (9-16); Calcium 9.6 mg/dL (8.4-10.2); Carbon Dioxide 29 mmol/L (22-29); Chloride 103 mmol/L (96-108); Cholesterol 174 mg/dL; Estimated Average Glucose 126 mg/dL; Estimated Glomerular Filt Rate > 60; Glucose Fasting 105 mg/dL (60-99); HDL Cholesterol 37 mg/dL; LDL Cholesterol Calculated 92 mg/dl; Potassium 4.7 mmol/L (3.3-5.1); Sodium 138 mmol/L (135-145); Total Protein 7.3 g/dL (6.5-8.0); Triglycerides 229 mg/dL
[2022-01-23 08:16] LABS: TSH reflex Free T4 5.94 uIU/mL (0.32-4.0); Vitamin D 25-OH Total 19.3 ng/mL (>30)
[2022-01-23 08:47] LABS: Free T4 (Free Thyroxine) 0.91 ng/dL (0.71-1.85)
[2022-01-23 08:48] LABS: Appearance Urine CLEAR; Color Urine YELLOW; Glucose Urine UA NEG (NEG); Leukocyte Esterase Urine TRACE (NEG); Nitrite Urine NEG (NEG); Specific Gravity - Urine >= 1.030 (1.005-1.025); UACC Culture Trigger NO; Urine Blood 1+ (NEG); Urine Ketones NEG (NEG); Urine Protein NEG (NEG-TRACE)
[2022-01-23 09:01] LABS: Bacteria Urine TRACE /LPF; Squamous Epithelial Cell Urine 2+ /LPF
[2022-01-23 09:02] LABS: RBC Urine 0-2 /HPF (0); WBC Urine 0-2 /HPF (0-4)
== END 2022-01-23 06:36 | disposition home or self-care (01) ==
LOC: HO.LAB 06:35
PROVIDERS: Absent Provider Internal Medicine Medical Oncology; PCP Internal Medicine; Visit Provider Internal Medicine
DX: E78.00 Pure hypercholesterolemia, unspecified (principal); R73.01 Impaired fasting glucose; E55.9 Vitamin D deficiency, unspecified; I10 Essential (primary) hypertension
CPT/HCPCS: 36415; 80053; 80061; 81001; 82306; 83036; 84439; 84443; 85025

== ENCOUNTER 2022-03-11 07:55 | Outpatient (REF) | payer OTHER, SELFPAY ==
--- NOTE | ~2022-03-11 | US_ITS ---
EXAMINATION: US LOWER EXTREMITY VENOUS (REFLUX EXAM), BILATERAL CLINICAL INDICATION: This is a 51-year-old female with venous insufficiency and reflux. History of deep vein thrombosis. COMPARISON: There is a previous venous duplex ultrasound dated 03/29/2021 which demonstrated chronic nonobstructive right common femoral vein deep vein thrombosis. The left side was normal. TECHNIQUE: Color flow triplex imaging and compression Doppler was performed to evaluate both the deep and the superficial systems bilaterally. To evaluate the superficial system, the examination was performed in the upright position. Color-flow Doppler ultrasound and compression ultrasound were utilized. In addition, maneuvers were utilized to demonstrate reflux. FINDINGS: 1. DEEP VENOUS ULTRASOUND OF THE RIGHT LOWER EXTREMITY: Common Femoral Vein: Compressible, normal respiratory variation and augmented flow. Femoral vein: Compressible, normal color flow and augmentation. Popliteal Vein: Compressible, normal augmentation. Deep Reflux: There is no evidence of reflux in the deep system in either the common femoral vein or the popliteal vein. There is no evidence of a Natarajan's cyst. 2. SUPERFICIAL ULTRASOUND WITH DOPPLER OF RIGHT LOWER EXTREMITY: GREAT SAPHENOUS VEIN: Saphenofemoral Junction: 0.7 cm. There is no reflux. The great saphenous vein is not seen below this level. No reflux is seen below this level. GSV REFLUX: No evidence of reflux. DUPLICATED GREAT SAPHENOUS VEIN: There is a 0.5 cm duplicated lateral great saphenous vein without reflux. SMALL SAPHENOUS VEIN: Proximal: 0.5 cm. There is no reflux. Distal: 0.4 cm. The reflux time is 2908 ms. SSV REFLUX: There is no reflux at the junction. There is reflux in the mid and distal calf. VEIN OF GIACOMINI: None Imaged. PERFORATORS: None Imaged VARICOSITIES: There are multiple 0.3 cm and 0.5 cm varicose veins in the calf with greater than 2 seconds of reflux. These appear to be related to the small saphenous vein. 3. DEEP VENOUS ULTRASOUND OF THE LEFT LOWER EXTREMITY: Common Femoral Vein: Compressible, normal respiratory variation and augmented flow. Femoral Vein: Compressible, normal color flow and augmentation. Popliteal Vein: Compressible, normal augmentation. Deep Reflux: There is no evidence of reflux in the deep system in either the common femoral vein or the popliteal vein. There is no evidence of a Natarajan's cyst. 4. SUPERFICIAL ULTRASOUND WITH DOPPLER OF LEFT LOWER EXTREMITY: GREAT SAPHENOUS VEIN: Saphenofemoral Junction: 0.6 cm Proximal thigh: 0.5 cm. There is no reflux. Mid Thigh: 0.4 cm. The reflux time is 2496 ms. Above Knee: 0.4 cm. There is no reflux at this level and below. Below Knee: 0.3 cm Mid Calf: 0.3 cm Ankle: 0.3 cm GSV REFLUX: There is isolated reflux in the mid thigh but no reflux above or below or at the junction. DUPLICATED GREAT SAPHENOUS VEIN: There is a 0.3 cm duplicated lateral great saphenous vein without reflux. SMALL SAPHENOUS VEIN: Proximal: 0.2 cm Distal: 0.1 cm SSV REFLUX: No evidence of reflux. VEIN OF GIACOMINI: None Imaged. PERFORATORS: There is a 0.2 cm regroover in the mid calf without reflux VARICOSITIES: There are 0.5 cm 0.3 cm varicose veins with greater than 2 seconds of reflux. US/US venous duplex LE BI IMPRESSION: 1. The proximal right great saphenous vein is seen at the saphenofemoral junction without reflux. However, the great saphenous vein on the right is not seen below this level. 2. The right small saphenous vein is patent without reflux at the junction. Reflux is seen in the mid and distal calf and the small saphenous vein. 3. There are right calf varicose veins measuring 0.3 cm and 0.5 cm with greater than 2 seconds of reflux. This is seen off the small saphenous vein. 4. There is a patent left great saphenous vein with reflux in the mid thigh but not above or below this area. 6. There is a patent left small saphenous vein without reflux. 7. There are left popliteal and calf varicose veins with greater than 2 seconds of reflux.
== END 2022-03-11 07:56 | disposition home or self-care (01) ==
LOC: HO.US 07:55
PROVIDERS: Visit Provider Surgery Vascular Surgery
DX: I83.11 Varicose veins of right lower extremity with inflammation (principal)
CPT/HCPCS: 93970

== ENCOUNTER 2022-03-13 12:44 | Outpatient (REF) | payer OTHER, SELFPAY ==
[2022-03-13 13:24] LABS: COVID-19 Test Negative (Negative); IDNOW Serial# 55D5AD1C
== END 2022-03-13 12:45 | disposition home or self-care (01) ==
LOC: HO.LAB 12:44
PROVIDERS: Visit Provider Internal Medicine
DX: Z20.822 Contact with and (suspected) exposure to COVID-19 (principal)
CPT/HCPCS: 87635; C9803

== ENCOUNTER → 2022-03-14 15:41 | Outpatient (BNVA) | payer OTHER, SELFPAY | PROVIDERS: PCP Internal Medicine; Visit Provider Surgery Vascular Surgery | DX: I83.11 Varicose veins of right lower extremity with inflammation (principal) | CPT/HCPCS: 99212 ==

== ENCOUNTER → 2022-04-12 08:32 | Outpatient (BNVA) | payer OTHER, SELFPAY | PROVIDERS: PCP Internal Medicine; Visit Provider Surgery Vascular Surgery | DX: I83.11 Varicose veins of right lower extremity with inflammation (principal) | CPT/HCPCS: 36475 ==

== ENCOUNTER 2022-04-15 15:32 | Outpatient (REF) | payer OTHER, SELFPAY ==
--- NOTE | ~2022-04-15 | US_ITS ---
EXAMINATION: TRIPLEX SCANNING OF RIGHT LOWER EXTREMITY; SUPERFICIAL ULTRASOUND WITH DOPPLER OF RIGHT LOWER EXTREMITY CLINICAL INFORMATION: Status post RF ablation of the right small saphenous vein. Originally performed on 04/12/2020. COMPARISON: Ultrasound from 03/11/2022. TECHNIQUE: Color flow triplex imaging and compression Doppler were performed as well as superficial ultrasound with Doppler. FINDINGS: TRIPLEX SCANNING OF RIGHT LOWER EXTREMITY: Respiratory variation, normal compression and augmented flow are noted throughout the lower extremity. The visualized common femoral vein, femoral vein, profunda femoral vein, popliteal vein and the calf veins show no evidence of deep venous thrombosis. There is no evidence of Natarajan's cyst. SUPERFICIAL ULTRASOUND WITH DOPPLER OF RIGHT LOWER EXTREMITY: The right small saphenous vein is occluded from the access site to 2.9 cm before the saphenopopliteal junction. There is no extension of thrombus into the deep system. US/US venous duplex LE RT IMPRESSION: 1. Normal triplex scan of the right without evidence of deep venous thrombosis. 2. Excellent appearance status post ablation of the right small saphenous vein.
== END 2022-04-15 15:33 | disposition home or self-care (01) ==
LOC: HO.US 15:32
PROVIDERS: Visit Provider Surgery Vascular Surgery
DX: M79.604 Pain in right leg (principal)
CPT/HCPCS: 93971

== ENCOUNTER → 2022-04-25 15:30 | Outpatient (BNVA) | payer OTHER, SELFPAY | PROVIDERS: PCP Internal Medicine; Visit Provider Surgery Vascular Surgery | DX: I83.11 Varicose veins of right lower extremity with inflammation (principal) | CPT/HCPCS: 99212 ==

== ENCOUNTER 2022-05-20 06:26 | Outpatient (REF) | payer OTHER, SELFPAY ==
[2022-05-20 08:01] LABS: Alanine Aminotransferase 18 U/L (0-31); Albumin Level 4.2 g/dL (3.5-5.0); Alkaline Phosphatase 82 U/L (39-117); Anion Gap 17 (12-20); Aspartate Amino Transferase 17 U/L (5-31); Bilirubin Total 0.8 mg/dL (0.0-1.0); Blood Urea Nitrogen 15 mg/dL (9-16); Calcium 9.5 mg/dL (8.4-10.2); Carbon Dioxide 25 mmol/L (22-29); Chloride 104 mmol/L (96-108); Cholesterol 183 mg/dL; Estimated Glomerular Filt Rate > 60; Glucose Fasting 103 mg/dL (60-99); HDL Cholesterol 35 mg/dL; LDL Cholesterol Calculated 112 mg/dl; Potassium 4.5 mmol/L (3.3-5.1); Sodium 141 mmol/L (135-145); Total Protein 7.8 g/dL (6.5-8.0); Triglycerides 182 mg/dL
[2022-05-20 08:11] LABS: Appearance Urine Cloudy; Color Urine Dark Yellow; Glucose Urine UA Negative (Negative); Leukocyte Esterase Urine Negative (Negative); Nitrite Urine Negative (Negative); PH 5.5 (5.0-9.0); Specific Gravity - Urine >= 1.030 (1.005-1.025); Urine Blood Negative (Negative); Urine Ketones Trace mg/dL (Negative); Urine Protein Negative (Neg-Trace)
[2022-05-20 08:24] LABS: TSH reflex Free T4 5.55 uIU/mL (0.32-4.0); Vitamin D 25-OH Total 18.6 ng/mL (>30)
[2022-05-20 09:12] LABS: Free T4 (Free Thyroxine) 0.97 ng/dL (0.71-1.85)
== END 2022-05-20 06:27 | disposition home or self-care (01) ==
LOC: HO.LAB 06:26
PROVIDERS: PCP Internal Medicine; Visit Provider Nurse Practitioner Family
DX: E78.5 Hyperlipidemia, unspecified (principal); E55.9 Vitamin D deficiency, unspecified; R79.89 Other specified abnormal findings of blood chemistry; I10 Essential (primary) hypertension
CPT/HCPCS: 36415; 80053; 80061; 81003; 82306; 84439; 84443

== ENCOUNTER 2022-08-01 15:24 | Emergency (ER) | payer OTHER, SELFPAY ==
--- NOTE | ~2022-08-01 | US_ITS ---
EXAMINATION: US VENOUS ULTRASOUND WITH DOPPLER LOWER EXTREMITY, BILATERAL CLINICAL INFORMATION: History of deep venous thrombus COMPARISON: Lower extremity DVT 03/29/2021, 04/15/2022 TECHNIQUE: Ultrasound of the deep veins is performed from the hip to the calf with compression sonography and color and pulse Doppler assessment. Spectral analysis with color-flow imaging is performed. FINDINGS: RIGHT: There is trace right chronic appearing nonocclusive thrombus in the right common femoral vein unchanged from 03/29/2021, although not clearly appreciated on interval priors. The visualized , superficial femoral vein, profunda femoral vein, popliteal vein, and the trifurcation region shows no evidence of deep venous thrombosis. There is no significant popliteal fossa cyst. LEFT: There is normal venous compression and respiratory variation and augmented flow. The visualized common femoral vein, superficial femoral vein, profunda femoral vein, popliteal vein, and the trifurcation region shows no evidence of deep venous thrombosis. There is no significant popliteal fossa cyst. If the patient's symptoms persist, followup ultrasound in 5 days 7 days might be of value to exclude proximal propagation from a non-visualized calf vein. US/US venous duplex LE BI IMPRESSION: There is trace right chronic appearing nonocclusive thrombus in the right common femoral vein unchanged from 03/29/2021, although not clearly appreciated on interval priors. No DVT demonstrated in the left lower extremity.
--- NOTE | ~2022-08-01 | XR_ITS ---
EXAMINATION: XR CHEST CLINICAL INFORMATION: Leg swelling and shortness of breath COMPARISON: 05/22/2020 TECHNIQUE: 2 views of the chest were obtained. FINDINGS: No significant abnormality is noted involving the heart, lungs, mediastinum, bony thorax or soft tissues. XR/XR chest 2V IMPRESSION: Unremarkable examination.
[2022-08-01 15:37] VITALS: BP 152/92; PULSE 94; RESP 20; TEMP 36.6; O2SAT 100; BMI 36.6
--- NOTE | 2022-08-01 15:38 | ED.GENADULT ---
HPI - General Adult General Chief complaint: Extremity Problem Stated complaint: Leg Swelling on blood thinners Time Seen by Provider: 08/01/22 18:31 Source: patient Mode of arrival: ambulatory Limitations: language barrier (Malawian-speaking) History of Present Illness HPI narrative: 51-year-old female with a past medical history of hypertension, DVT to right lower extremity currently on Eliquis taking as prescribed not on any water pills other reports she was prescribed in the past who is presenting to the ER with complaints of bilateral leg swelling worse on the right than the left that is usually chronic although worse in the past 2 days. Denies any fevers, chest pain, shortness of breath, dyspnea on exertion, orthopnea, palpitations, nausea/vomiting, abdominal pain, weight gain that she is aware of, recent travel or sick contacts, rashes, recent falls or trauma or any other symptoms complaints or concerns at this time. Reports that she had an ablation to her leg by the vascular surgeon recently. MD complaint: Bilateral leg swelling Onset (ago): day(s) (2) Related Data Home Medications Medication Instructions Recorded Confirmed phentermine 37.5 mg capsule 37.5 mg PO QAM 05/24/20 06/26/22 (Adipex-P) doxepin 10 mg capsule 10 mg PO BEDTIME 05/25/20 06/26/22 ropinirole 1 mg tablet 1 mg PO BEDTIME 05/25/20 06/26/22 sertraline 100 mg tablet 100 mg PO DAILY 05/25/20 06/26/22 Previous Rx's Medication Instructions Recorded omeprazole 20 mg capsule,delayed 20 mg PO DAILY #30 caps 02/21/21 release gabapentin 600 mg tablet 600 mg PO TID 30 days #90 tabs 03/30/21 mupirocin 2 % topical ointment 1 appl topical TID #22 grams 06/13/21 lisinopril 5 mg tablet 5 mg PO DAILY 30 days #30 tabs 06/22/21 apixaban 5 mg tablet (Eliquis) 5 mg PO BID #60 tabs 02/02/22 cholecalciferol (vitamin D3) 50 50 mcg PO DAILY 90 days #90 caps 05/17/22 mcg (2,000 unit) capsule cyclobenzaprine 10 mg tablet 10 mg PO TID PRN muscle spasm 10 05/17/22 days #30 tabs hydroxyzine HCl 25 mg tablet 25 mg PO TID PRN Anxiety 30 days 05/17/22 #90 tabs mecobalamin (vitamin B12) 1,000 1,000 mcg sublingual DAILY 90 days 05/17/22 mcg disintegrating #90 tabs tablet,sublingual Nystop 100,000 unit/gram topical 1 appl topical TID 10 days #60 06/26/22 powder (nystatin) grams acetaminophen 300 mg-codeine 30 mg 1 tab PO Q8H PRN pain #14 tabs 08/01/22 tablet Allergies Allergy/AdvReac Type Severity Reaction Status Date / Time No Known Allergies Allergy Verified 08/01/22 15:41 Review of Systems Review of Systems: Constitutional : No Weight loss, No Fever, No Chills, No Night Sweats, No Fatigue, No Malaise ENT/Mouth : No Hearing loss, No Ear Pain, No Nasal Congestion, No Sinus Pain, No Hoarseness, No sore throat, No Rhinorrhea, No Swallowing Difficulty Eyes: No Eye Pain, No Swelling, No Redness, No Foreign Body, No Discharge, No Vision Changes Cardiovascular : No Chest Pain, No SOB, No Dyspnea on Exertion, No Orthopnea, + bilateral lower Edema, No Palpitations Respiratory : No Cough, No Sputum, No Wheezing, No Smoke Exposure, No Dyspnea Gastrointestinal : No Nausea, No Vomiting, No Diarrhea, No Constipation, No abdominal Pain, No Hematochezia, No Melena Genitourinary : no irregular bleeding, No Dysuria, No Urinary Frequency, No Hematuria, No Urinary Incontinence, No Urgency, No Flank Pain, No Urinary Flow Changes, No Hesitancy Musculoskeletal : No joint pain, No Myalgias, No Joint Swelling Skin : No Skin Lesions, No rash Neuro : No Weakness, No Numbness, No Paresthesias, No Loss of Consciousness, No Dizziness, No Headache Psych : No Anxiety/Panic, No Depression, No SI/HI/AH/VH, No Social Issues, Heme/Lymph: No Bruising, No Bleeding,No Lymphadenopathy Endocrine : No Polyuria, No Polydipsia, No Temperature Intolerance Yes all other systems are reviewed and are negative [facility] Past Medical History Attestation statement: The following information was validated with the patient. Source: old records reviewed and nursing notes reviewed Medical History Anxiety Benign essential hypertension Dyslipidemia GERD (gastroesophageal reflux disease) Hx of deep venous thrombosis Hypercoagulable state Impaired fasting glucose Lumbar degenerative disc disease Obesity (BMI 30-39.9) Pain and swelling of right lower extremity Peripheral neuropathy Restless leg syndrome Stasis edema of both lower extremities Vitamin B12 deficiency Vitamin D deficiency Surgical History History of section History of endometrial ablation History of eye surgery History of surgery History of tubal ligation Hx of colonoscopy Hx of endoscopy Family History Family History Father Colon cancer Mother Diabetes Breast cancer Sister Colon cancer Social History Social History Household Members: None Housing: Apartment Are you a primary health care recruiter to a significant other at home: No Do you presently have visiting nurse or other home services: No Alcohol intake: current Alcohol intake frequency: holidays/special occasions only Patient Tobacco Use Status: Never used Tobacco e-Cigarette/Vaping Use: Never Used Second Hand Smoke Exposure: Yes Advance Directives: No Advance Directives Information Provided: No service: No Current occupational status: employed 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 Blood pressure 152/92. Heart rate normal. Respiration rate normal. Temperature normal. Oxygen saturation normal. Appearance: Alert. Oriented X3. No acute distress. Head: Normal external exam. Normocephalic. Atraumatic. Eyes: PERRLA. EOMI. Conjunctiva and sclera normal. Eyelids normal. ENT: EAC normal. TM's Normal. Pharynx normal. Uvula midline. Moist mucous membranes. No lesions/ulcerations or masses noted on the tongue. Normal voice. No trismus noted. No drooling noted. No muffled voice noted. Neck: Normal inspection. Neck supple. FROM. No adenopathy. Thyroid Normal. No tracheal deviation noted. No crepitus is noted. No meningeal signs. No neck mass noted. No signs of trauma noted. CVS: Normal heart rate and rhythm. Heart sound normal. Pulses normal throughout. No murmurs/rales/gallops. Respiratory: No respiratory distress. Painless inspiration. Breath sounds normal. No wheezes/rales/rhonchi noted. Chest nontender. No crepitus is noted. No signs of trauma noted. No accessory muscle usage noted or decreased air movement noted. No signs of trauma. Abdomen: Soft and nontender. Bowel sounds normal in all 4 quadrants. No distention noted. No organomegaly noted. No visible injury noted. Back: No CVA tenderness. Full range of motion noted. Nontender. No signs of trauma. Patient neuro intact bilaterally and distally on all 4 extremities. Patient's reflexes intact bilaterally and distally on all 4 extremities. No rashes/lesion/induration/fluctuance or signs of infection noted. Skin: Skin warm and dry. Normal skin color. Normal skin turgor. No rashes/lesions/lacerations noted. Extremities: Lower extremities are swollen although there is no lower extremity pitting edema. She does not have any calf tenderness. There are no rashes noted. No signs of infection noted. Extremities exhibit normal range of motion and nontender. Neuro: Oriented X 3. No motor deficit. No sensory deficit. Reflexes normal. Normal steady gait. No focal neuro deficits noted. CN's II-XII intact bilaterally? Vascular: + radial pulses/+ 2 distal pedal pulses/+2 dorsalis pedis b/l. Normal cap refill. No cyanosis noted to upper extremity nails and lower extremity toes nails. Course Course Course Narrative: RME- 15:40PM - 51-year-old female with a past medical history of hypertension, DVT to right lower extremity currently on Eliquis taking as prescribed not on any water pills other reports she was prescribed in the past who is presenting to the ER with complaints of bilateral leg swelling worse on the right than the left that is usually chronic although worse in the past 2 days. Also reports associated shortness of breath. Denies any fevers, chest pain, dyspnea on exertion, orthopnea, palpitations or any other symptoms complaints or concerns at this time. Reports that she had an ablation to her leg by the vascular surgeon recently. Plan: Will obtain labs, EKG, venous duplex ultrasound of bilateral lower extremity, chest x-ray. Patient will be sent back to the waiting room to be evaluated in the ED. Reevaluation(s) Reevaluation #1: Labs reviewed patient mild anemia with an H&H of 11.6/35.9. No random glucose 136. AST/ALT 37/40. Negative troponin. Negative BNP. Patient negative for COVID/RSV/flu. Ultrasound of bilateral lower extremity revealed trace right chronic appearing nonocclusive thrombus in the right common femoral vein unchanged from 03/29/2021. Otherwise no other acute processes. No DVT in the left lower extremity. Therefore patient most likely pedal edema she is currently taking Eliquis will DC home with symptomatic treatment instructions to follow-up with PCP/vascular surgeon and to return if any new or worsening symptoms if she develops any chest pain or shortness of breath. Patient understands and is agreeable to this plan. Time: 18:58 Medical Decision Making Lab Data MDM Lab Attestation statement: I reviewed the patient's lab results. 08/01/22 16:08 08/01/22 16:07 Labs: Lab Results 08/01/22 08/01/22 08/01/22 Range/Units 16:07 16:07 16:08 WBC 6.8 (4.8-10.8) X10*3/uL RBC 4.51 (4.20-5.50) X10*6/uL Hgb 11.6 L (12.0-16.0) g/dl Hct 35.9 L (37.0-47.0) % MCV 79.6 L (80.0-98.0) fL MCH 25.7 L (27.0-33.0) pg MCHC 32.3 (31.0-35.0) g/dl RDW 14.5 (11.0-16.0) % Plt Count 288 (160-400) X10*3/uL MPV 8.7 L (9.4-12.3) fL Immature Gran % (Auto) 0.3 (0.0-0.4) % Neut % (Auto) 53.8 (45-73) % Lymph % (Auto) 34.4 (20-40) % [place] % (Auto) 6.8 (2-11) % Eos % (Auto) 4.1 H (0-4) % Baso % (Auto) 0.6 (0-2) % Lymph # (Auto) 2.3 (1.2-4.9) X10*3/uL [place] # (Auto) 0.5 (0.1-1.2) X10*3/uL Eos # (Auto) 0.3 (0.0-0.4) X10*3/uL Baso # (Auto) 0.0 (0.0-0.2) X10*3/uL Abs Immat Gran (auto) 0.02 (0.00-0.03) X10*3/uL Absolute Neuts (auto) 3.6 (2.0-8.3) x10*3/uL Absolute Nucleated RBC 0.000 (0.0-0.012) X10*3/uL Nucleated RBC % (auto) 0.0 (0.0-0.2) /100WBC PT (10.0-13.1) SEC INR (0.9-1.1) Sodium 138 (135-145) mmol/L Potassium 3.8 (3.3-5.1) mmol/L Chloride 101 (96-108) mmol/L Carbon Dioxide 28 (22-29) mmol/L Anion Gap 13 (12-20) BUN 15 (9-16) mg/dL Creatinine 0.76 (0.5-1.4) mg/dL Estim Creat Clear Calc 106.1 Estimated GFR > 60 Random Glucose 136 H (60-115) mg/dL Calcium 9.2 (8.4-10.2) mg/dL Magnesium 1.8 (1.6-2.6) mg/dL Total Bilirubin 0.8 (0.0-1.0) mg/dL AST 37 H (5-31) U/L ALT 40 H (0-31) U/L Alkaline Phosphatase 83 (39-117) U/L Troponin I High Sens (<3.5-17.0) ng/L B-Natriuretic Peptide < 10 (<100) pg/mL Total Protein 7.2 (6.5-8.0) g/dL Albumin 4.0 (3.5-5.0) g/dL Beta HCG, Quant < 2 mIU/mL Influenza Type A (PCR) (Negative) Influenza Type B (PCR) (Negative) RSV RNA Qual (PCR) (Negative) SARS-CoV-2 RNA (RT-PCR) (Negative) 08/01/22 08/01/22 08/01/22 Range/Units 16:08 16:08 16:09 WBC (4.8-10.8) X10*3/uL RBC (4.20-5.50) X10*6/uL Hgb (12.0-16.0) g/dl Hct (37.0-47.0) % MCV (80.0-98.0) fL MCH (27.0-33.0) pg MCHC (31.0-35.0) g/dl RDW (11.0-16.0) % Plt Count (160-400) X10*3/uL MPV (9.4-12.3) fL Immature Gran % (Auto) (0.0-0.4) % Neut % (Auto) (45-73) % Lymph % (Auto) (20-40) % [place] % (Auto) (2-11) % Eos % (Auto) (0-4) % Baso % (Auto) (0-2) % Lymph # (Auto) (1.2-4.9) X10*3/uL [place] # (Auto) (0.1-1.2) X10*3/uL Eos # (Auto) (0.0-0.4) X10*3/uL Baso # (Auto) (0.0-0.2) X10*3/uL Abs Immat Gran (auto) (0.00-0.03) X10*3/uL Absolute Neuts (auto) (2.0-8.3) x10*3/uL Absolute Nucleated RBC (0.0-0.012) X10*3/uL Nucleated RBC % (auto) (0.0-0.2) /100WBC PT 12.1 (10.0-13.1) SEC INR 1.1 (0.9-1.1) Sodium (135-145) mmol/L Potassium (3.3-5.1) mmol/L Chloride (96-108) mmol/L Carbon Dioxide (22-29) mmol/L Anion Gap (12-20) BUN (9-16) mg/dL Creatinine (0.5-1.4) mg/dL Estim Creat Clear Calc Estimated GFR Random Glucose (60-115) mg/dL Calcium (8.4-10.2) mg/dL Magnesium (1.6-2.6) mg/dL Total Bilirubin (0.0-1.0) mg/dL AST (5-31) U/L ALT (0-31) U/L Alkaline Phosphatase (39-117) U/L Troponin I High Sens < 3.5 (<3.5-17.0) ng/L B-Natriuretic Peptide (<100) pg/mL Total Protein (6.5-8.0) g/dL Albumin (3.5-5.0) g/dL Beta HCG, Quant mIU/mL Influenza Type A (PCR) NEGATIVE (Negative) Influenza Type B (PCR) NEGATIVE (Negative) RSV RNA Qual (PCR) NEGATIVE (Negative) SARS-CoV-2 RNA (RT-PCR) NEGATIVE (Negative) Independent Interpretation I performed an independent interpretation of an: EKG (EKG NSR with a ventricular rate of 84 with a normal MT interval normal QRS duration normal QTC interval no acute ischemic changes noted. Similar when compared to prior ekg on 05/22/2020), Plain X-Ray and Ultrasound Interpretation: Ultrasound of bilateral lower extremity FINDINGS: RIGHT: There is trace right chronic appearing nonocclusive thrombus in the right common femoral vein unchanged from 03/29/2021, although not clearly appreciated on interval priors. The visualized , superficial femoral vein, profunda femoral vein, popliteal vein, and the trifurcation region shows no evidence of deep venous thrombosis.? There is no significant popliteal fossa cyst. LEFT: There is normal venous compression and respiratory variation and augmented flow. The visualized common femoral vein, superficial femoral vein, profunda femoral vein, popliteal vein, and the trifurcation region shows no evidence of deep venous thrombosis. ? There is no significant popliteal fossa cyst. If the patient's symptoms persist, followup ultrasound in 5 days 7 days might be of value to exclude proximal propagation from a non-visualized calf vein. US/US venous duplex LE BI IMPRESSION: ? There is trace right chronic appearing nonocclusive thrombus in the right common femoral vein unchanged from 03/29/2021, although not clearly appreciated on interval priors. ? No DVT demonstrated in the left lower extremity. Chest x-ray FINDINGS: No significant abnormality is noted involving the heart, lungs, mediastinum, bony thorax or soft tissues. XR/XR chest 2V IMPRESSION: Unremarkable examination. Radiology Impression Discussion of test interpretation with radiology: I have reviewed the radiologist's reading. Prescription Management I considered prescription management with: Pain Medication Chronic Conditions Patient?s care impacted by: Hypertension and Other (dvt) Discharge Plan Discharge Clinical Impression: Pedal edema, Chronic deep vein thrombosis (DVT) of femoral vein of right lower extremity Patient Disposition: Home, Self-Care Instructions: Deep Vein Thrombosis (ED), Leg Edema (ED), Blood Thinners (ED), Vein Stripping (DC) Prescriptions: New acetaminophen-codeine 300-30 mg tablet 1 tab PO Q8H PRN (Reason: pain) Qty: 14 0RF No Action gabapentin 600 mg tablet 600 mg PO TID 30 Days Qty: 90 3RF lisinopril 5 mg tablet 5 mg PO DAILY 30 Days Qty: 30 0RF mecobalamin (vitamin B12) 1,000 mcg tablet,disintegrating 1,000 mcg sublingual DAILY 90 Days Qty: 90 3RF Rx Instructions: place tablet under tongue and allow to dissolve for at least30 secs before swallowing cholecalciferol (vitamin D3) 50 mcg (2,000 unit) capsule 50 mcg PO DAILY 90 Days Qty: 90 3RF hydroxyzine HCl 25 mg tablet 25 mg PO TID PRN (Reason: Anxiety) 30 Days Qty: 90 1RF cyclobenzaprine 10 mg tablet 10 mg PO TID PRN (Reason: muscle spasm) 10 Days Qty: 30 2RF Eliquis 5 mg Tablet 5 mg PO BID Qty: 60 4RF phentermine [Adipex-P] 37.5 mg capsule 37.5 mg PO QAM sertraline 100 mg tablet 100 mg PO DAILY doxepin 10 mg capsule 10 mg PO BEDTIME ropinirole 1 mg tablet 1 mg PO BEDTIME Rx Instructions: administer 1-3 hours before bedtime mupirocin 2 % ointment 1 appl topical TID Qty: 22 2RF nystatin [Nystop] 100,000 unit/gram powder 1 appl topical TID 10 Days Qty: 60 3RF omeprazole 20 mg capsule,delayed release(DR/EC) 20 mg PO DAILY Qty: 30 5RF Referrals: Nik Hunt MD [Primary Care Provider] - 2 days Jon Damico MD [Physician] - (Call to make a follow-up appointment as needed) Stand Alone Forms: Work/School Release Interventions: ED Discharge Assessment Last Done: 08/01/22 18:59 Discharge Date/Time: 08/01/22 18:59 Print Language: Malawian
--- NOTE | 2022-08-01 15:39 | ECG_ITS ---
Test Reason : ANXIETTY Blood Pressure : / mmHG Vent. Rate : 084 BPM Atrial Rate : 084 BPM P-R Int : 162 ms QRS Dur : 094 ms QT Int : 378 ms P-R-T Axes : 024 030 023 degrees QTc Int : 446 ms Normal sinus rhythm Normal ECG When compared with ECG of 22-MAY-2020 17:37, No significant change was found Referred By: Mary Ellen Esquivel Electronically Signed By:STEVE ESTRELLA MD
[2022-08-01 16:16] LABS: MANUAL DIFF FLAG NO
[2022-08-01 16:18] LABS: Basophils Percent Auto 0.6 % (0-2); Eosinophils Absolute Auto 0.3 X10*3/uL (0.0-0.4); Eosinophils Percent Auto 4.1 % (0-4); Hematocrit 35.9 % (37.0-47.0); Hemoglobin 11.6 g/dl (12.0-16.0); Imm Gran Abs Auto 0.02 X10*3/uL (0.00-0.03); Imm Gran Pct Auto 0.3 % (0.0-0.4); Lymphocytes Absolute Auto 2.3 X10*3/uL (1.2-4.9); Lymphocytes Percent Auto 34.4 % (20-40); Mean Corpuscular HGB Conc 32.3 g/dl (31.0-35.0); Mean Corpuscular Hemoglobin 25.7 pg (27.0-33.0); Mean Corpuscular Volume 79.6 fL (80.0-98.0); Mean Platelet Volume 8.7 fL (9.4-12.3); Monocytes Absolute Auto 0.5 X10*3/uL (0.1-1.2); Monocytes Percent Auto 6.8 % (2-11); Neutrophils Absolute Auto 3.6 x10*3/uL (2.0-8.3); Neutrophils Percent Auto 53.8 % (45-73); Platelet Count 288 X10*3/uL (160-400); Red Blood Count 4.51 X10*6/uL (4.20-5.50); Red Cell Distribution Width 14.5 % (11.0-16.0); White Blood Count 6.8 X10*3/uL (4.8-10.8)
[2022-08-01 16:24] LABS: INTERNATIONAL NORM RATIO 1.1 (0.9-1.1); Prothrombin Time 12.1 SEC (10.0-13.1)
[2022-08-01 16:39] LABS: B Type Natriuretic Peptide < 10 pg/mL (<100)
[2022-08-01 16:40] LABS: Alanine Aminotransferase 40 U/L (0-31); Alkaline Phosphatase 83 U/L (39-117); Anion Gap 13 (12-20); Aspartate Amino Transferase 37 U/L (5-31); Bilirubin Total 0.8 mg/dL (0.0-1.0); Blood Urea Nitrogen 15 mg/dL (9-16); Calcium 9.2 mg/dL (8.4-10.2); Carbon Dioxide 28 mmol/L (22-29); Chloride 101 mmol/L (96-108); Creatinine Clr Calc Pharmacy 106.1; Estimated Glomerular Filt Rate > 60; Glucose Random 136 mg/dL (60-115); Magnesium 1.8 mg/dL (1.6-2.6); Potassium 3.8 mmol/L (3.3-5.1); Sodium 138 mmol/L (135-145); Total Protein 7.2 g/dL (6.5-8.0)
[2022-08-01 16:50] LABS: HCG Quantitative < 2 mIU/mL
[2022-08-01 16:50] LABS: Troponin-I High Sensitivity < 3.5 ng/L (<3.5-17.0)
[2022-08-01 17:07] LABS: Influenza A PCR NEGATIVE (Negative); Influenza B PCR NEGATIVE (Negative); Resp Syncy Virus RNA Qual PCR NEGATIVE (Negative); SARS COV2 PCR INHOUSE NEGATIVE (Negative)
== END 2022-08-01 18:59 | disposition home or self-care (01) ==
PROVIDERS: Physician Assistant Medical; Emergency Provider Emergency Medicine; PCP Internal Medicine
DX: I82.511 Chronic embolism and thrombosis of right femoral vein (principal); R60.0 Localized edema; R06.02 Shortness of breath; F41.1 Generalized anxiety disorder; F43.0 Acute stress reaction; Z20.822 Contact with and (suspected) exposure to COVID-19; Z20.828 Contact with and (suspected) exposure to other viral communicable diseases; Z79.899 Other long term (current) drug therapy; Z79.01 Long term (current) use of anticoagulants
CPT/HCPCS: 0241U; 36415; 71046; 80053; 83735; 83880; 84484; 84702; 85025; 85610; 93005; 93970; 99283; 99284

== ENCOUNTER 2022-08-07 09:30 | Outpatient (REF) | payer OTHER, SELFPAY ==
[2022-08-07 15:20] LABS: CT PCR NOT DETECTED (Not Detect.); NG PCR NOT DETECTED (Not Detect.)
[2022-08-08 09:00] LABS: BV Int Neg Control Negative (Negative); BV Int Pos Control Positive (Positive)
== END 2022-08-07 09:31 | disposition home or self-care (01) ==
LOC: HO.LNP 09:30
PROVIDERS: PCP Internal Medicine; Visit Provider Advanced Practice Midwife
DX: A74.9 Chlamydial infection, unspecified (principal); Z20.2 Contact with and (suspected) exposure to infections with a predominantly sexual mode of transmission
CPT/HCPCS: 0353U; 87480; 87510; 87660

== ENCOUNTER 2022-08-27 06:45 | Outpatient (REF) | payer OTHER, SELFPAY ==
[2022-08-27 07:53] LABS: Estimated Average Glucose 126 mg/dL
[2022-08-27 08:16] LABS: Alanine Aminotransferase 34 U/L (0-31); Albumin Level 4.1 g/dL (3.5-5.0); Alkaline Phosphatase 86 U/L (39-117); Anion Gap 14 (12-20); Aspartate Amino Transferase 27 U/L (5-31); Bilirubin Total 0.9 mg/dL (0.0-1.0); Blood Urea Nitrogen 15 mg/dL (9-16); Calcium 9.4 mg/dL (8.4-10.2); Carbon Dioxide 27 mmol/L (22-29); Chloride 102 mmol/L (96-108); Cholesterol 168 mg/dL; Estimated Glomerular Filt Rate > 60; Glucose Fasting 122 mg/dL (60-99); HDL Cholesterol 32 mg/dL; LDL Cholesterol Calculated 107 mg/dl; Potassium 4.4 mmol/L (3.3-5.1); Sodium 139 mmol/L (135-145); Total Protein 7.2 g/dL (6.5-8.0); Triglycerides 147 mg/dL
[2022-08-27 08:24] LABS: Free T4 (Free Thyroxine) 0.92 ng/dL (0.71-1.85); Thyroid Stimulating Hormone 5.36 uIU/mL (0.32-4.0)
[2022-08-28 04:26] LABS: Syphilis Screen Nonreactive (Nonreactive)
[2022-08-28 04:38] LABS: HBsAGNum1 0.24 S/CO (0.00-0.99); HIV AB/AG Nonreactive (Nonreactive); HIV Num 1 0.07 S/CO (0.00-0.99); Hepatitis B Surface Antigen Negative (Negative); ~HepC Num1 0.11 S/CO (0.00-0.79); ~Hepatitis C Antibody Nonreactive (Nonreactive)
== END 2022-08-27 06:46 | disposition home or self-care (01) ==
LOC: HO.LAB 06:45
PROVIDERS: Advanced Practice Midwife; PCP Internal Medicine; Visit Provider Internal Medicine
DX: Z01.419 Encounter for gynecological examination (general) (routine) without abnormal findings (principal); E78.00 Pure hypercholesterolemia, unspecified; R79.89 Other specified abnormal findings of blood chemistry; R73.01 Impaired fasting glucose; Z11.3 Encounter for screening for infections with a predominantly sexual mode of transmission
CPT/HCPCS: 36415; 80053; 80061; 83036; 84439; 84443; 86780; 86803; 87340; 87389

== ENCOUNTER 2022-09-09 11:04 | Outpatient (REF) | payer OTHER, SELFPAY ==
[2022-09-10 11:31] LABS: Appearance Urine Cloudy; Color Urine Dark Yellow; Glucose Urine UA Negative (Negative); Leukocyte Esterase Urine Large (3+) (Negative); Nitrite Urine Negative (Negative); PH 6.5 (5.0-9.0); Specific Gravity - Urine 1.025 (1.005-1.025); UMIC TRIGGER UACC YES; Urine Blood Small (1+) (Negative); Urine Ketones Negative (Negative); Urine Protein 30 (1+) mg/dL (Neg-Trace)
[2022-09-10 11:47] LABS: Bacteria Urine Trace (None Seen); Hyaline Casts Urine 0-2 /LPF (0-2); UACC Culture Trigger YES; WBC Urine >50 /HPF (0-5)
== END 2022-09-09 11:05 | disposition home or self-care (01) ==
LOC: HO.LNP 11:04
PROVIDERS: Visit Provider Nurse Practitioner Family
DX: R30.0 Dysuria (principal)
CPT/HCPCS: 81001; 87086; 87147

== ENCOUNTER 2022-10-12 10:24 | Outpatient (REF) | payer OTHER, SELFPAY ==
--- NOTE | ~2022-10-12 | MM_ITS ---
EXAMINATION: MM SCREENING DIGITAL BREAST TOMOSYNTHESIS, BILATERAL CLINICAL INFORMATION: Screening. Asymptomatic. History DDH left breast, status post excision 12/21/2012. The lifetime risk of breast cancer based on the Tyrer-Cuzick Model is 14%. COMPARISON: Multiple prior exams, most recent 10/06/2021 TECHNIQUE: Digital breast tomosynthesis is performed in both the craniocaudal and mediolateral oblique views along with computer-aided detection (CAD). Synthesized 2D images are generated from the tomosynthesis. FINDINGS: There are scattered areas of fibroglandular density (ACR BI-RADS breast composition Category b). Parenchymal pattern is similar to prior studies and there is no developing density or interval mass or architectural abnormality. There are scattered stable calcifications. The axilla and skin contours are unremarkable. There are no significant changes. MM/MM tomosynthesis screening BI IMPRESSION: No mammographic evidence of malignancy. ASSESSMENT: BI-RADS 2: Benign RECOMMENDATION: Routine annual mammography screening. This patient's information was entered into a reminder system with a target due date for their next mammogram.
== END 2022-10-12 10:25 | disposition home or self-care (01) ==
LOC: HO.MAMMO 10:24
PROVIDERS: PCP Internal Medicine; Visit Provider Advanced Practice Midwife
DX: Z12.31 Encounter for screening mammogram for malignant neoplasm of breast (principal); Z80.3 Family history of malignant neoplasm of breast
CPT/HCPCS: 77063; 77067

== ENCOUNTER 2022-11-05 07:02 | Outpatient (REF) | payer OTHER, SELFPAY ==
[2022-11-05 07:15] LABS: MANUAL DIFF FLAG NO
[2022-11-05 07:35] LABS: Basophils Percent Auto 0.6 % (0-2); Eosinophils Absolute Auto 0.2 X10*3/uL (0.0-0.4); Eosinophils Percent Auto 3.1 % (0-4); Hematocrit 36.8 % (37.0-47.0); Hemoglobin 11.5 g/dl (12.0-16.0); Imm Gran Abs Auto 0.03 X10*3/uL (0.00-0.03); Imm Gran Pct Auto 0.4 % (0.0-0.4); Lymphocytes Absolute Auto 2.5 X10*3/uL (1.2-4.9); Lymphocytes Percent Auto 35.2 % (20-40); Mean Corpuscular HGB Conc 31.3 g/dl (31.0-35.0); Mean Corpuscular Hemoglobin 25.2 pg (27.0-33.0); Mean Corpuscular Volume 80.5 fL (80.0-98.0); Mean Platelet Volume 9.2 fL (9.4-12.3); Monocytes Absolute Auto 0.6 X10*3/uL (0.1-1.2); Monocytes Percent Auto 8.2 % (2-11); Neutrophils Absolute Auto 3.8 x10*3/uL (2.0-8.3); Neutrophils Percent Auto 52.5 % (45-73); Platelet Count 293 X10*3/uL (160-400); Red Blood Count 4.57 X10*6/uL (4.20-5.50); Red Cell Distribution Width 13.9 % (11.0-16.0); White Blood Count 7.2 X10*3/uL (4.8-10.8)
[2022-11-05 07:51] LABS: Estimated Average Glucose 140 mg/dL; Hemoglobin A1C 150.8029 umol/L; Hemoglobin A1c % 6.5 %
[2022-11-05 08:09] LABS: Alanine Aminotransferase 62 U/L (0-31); Alkaline Phosphatase 79 U/L (39-117); Anion Gap 13 (12-20); Aspartate Amino Transferase 47 U/L (5-31); Blood Urea Nitrogen 16 mg/dL (9-16); Calcium 9.3 mg/dL (8.4-10.2); Carbon Dioxide 27 mmol/L (22-29); Chloride 106 mmol/L (96-108); Cholesterol 173 mg/dL; Estimated Glomerular Filt Rate > 60; Glucose Fasting 110 mg/dL (60-99); HDL Cholesterol 31 mg/dL; LDL Cholesterol Calculated 107 mg/dl; Potassium 4.5 mmol/L (3.3-5.1); Sodium 141 mmol/L (135-145); Total Protein 7.1 g/dL (6.5-8.0); Triglycerides 176 mg/dL
[2022-11-05 08:30] LABS: Free T4 (Free Thyroxine) 0.87 ng/dL (0.71-1.85); Vitamin D 25-OH Total 23.8 ng/mL (>30)
[2022-11-05 08:34] LABS: Appearance Urine Cloudy; Color Urine Yellow; Glucose Urine UA Negative (Negative); Leukocyte Esterase Urine Trace (Negative); Nitrite Urine Negative (Negative); PH 5.5 (5.0-9.0); Specific Gravity - Urine 1.025 (1.005-1.025); UMIC TRIGGER UACC YES; Urine Blood Negative (Negative); Urine Ketones Negative (Negative); Urine Protein Negative (Neg-Trace)
[2022-11-05 08:37] LABS: Bacteria Urine None Seen (None Seen); Hyaline Casts Urine 0-2 /LPF (0-2); RBC Urine 0-2 /HPF (0-2); WBC Urine 0-5 /HPF (0-5)
== END 2022-11-05 07:03 | disposition home or self-care (01) ==
LOC: HO.LAB 07:02
PROVIDERS: PCP Internal Medicine; Visit Provider Internal Medicine
DX: E78.00 Pure hypercholesterolemia, unspecified (principal); R79.89 Other specified abnormal findings of blood chemistry; E55.9 Vitamin D deficiency, unspecified; R73.01 Impaired fasting glucose; I10 Essential (primary) hypertension
CPT/HCPCS: 36415; 80053; 80061; 81001; 82306; 83036; 84439; 84443; 85025

== ENCOUNTER 2023-01-28 14:25 | Outpatient (AMB) | payer OTHER, SELFPAY ==
--- NOTE | 2023-01-28 15:14 | AM.OFFVISNUR ---
Intake Intake Visit Reasons: TB shot Allergies No Known Allergies Allergy (Verified 11/05/22 11:40) Office Meds tuberculin PPD Performing Provider: Nik Hunt MD Administered by: Sheila Monzon RN on 01/28/23 15:14 Dose Route Admin Location Lot Number Expiration Date [employer]ist 0.1 mL intradermal left forearm [id number] 12/19/24 03396-091-13 [employer] Coding Diagnoses Assessment & Plan Assessment & Plan Orders: Orders AMB PPD Planted Today Z11.1 - Encounter for screening for respiratory tuberculosis
== END 2023-01-28 15:12 | disposition home or self-care (01) ==
PROVIDERS: PCP Internal Medicine; Visit Provider Internal Medicine
DX: Z11.1 Encounter for screening for respiratory tuberculosis (principal)
CPT/HCPCS: 86580

== ENCOUNTER 2023-04-03 12:21 | Outpatient (AMB) | payer OTHER, SELFPAY ==
--- NOTE | 2023-04-03 13:09 | MHC.OFFWIV ---
Intake Vital Signs 04/03/23 13:14 Height 5 ft 6 in Weight 235 lb 8 oz BMI 38.0 BP 138/78 Blood Pressure Location Rt brachial Position Sitting Pulse 90 Pulse Source Pulse Oximeter Temp 97.9 F Temp Source Temporal Artery Scan Pulse Oximetry (%) 96 Oxygen Delivery Method Room Air Intake Visit Reasons: EST/cough and antonio/[id number] Intake Note: Patient here for cough that has been present for about 3 days. states the more Patient Tobacco Use Status: Never used Tobacco Allergies No Known Allergies Allergy (Verified 11/05/22 11:40) Do you need a note to return to daycare/school/sports/work: Yes HPI HPI Comments History of Present Illness Details The patient presents to urgent care for evaluation of cough and congestion x2 days. She reports fevers at night. Has not taken a COVID test. 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 Patient needs a work note PFSH Medical History (Updated 03/25/23 @ 11:48 by [employer]) Acquired hypothyroidism Benign essential hypertension Pain and swelling of right lower extremity Obesity (BMI 30-39.9) Anxiety GERD (gastroesophageal reflux disease) Restless leg syndrome Impaired fasting glucose Stasis edema of both lower extremities Vitamin D deficiency Vitamin B12 deficiency Peripheral neuropathy Lumbar degenerative disc disease Dyslipidemia Hypercoagulable state Hx of deep venous thrombosis Surgical History Hx of endoscopy Hx of colonoscopy History of endometrial ablation History of eye surgery History of surgery History of tubal ligation History of section Family History Father Colon cancer Mother Diabetes Breast cancer Sister Colon cancer Social History Household Members: None Housing: Apartment Are you a primary daycare provider to a significant other at home: No Do you presently have visiting nurse or other home services: No Alcohol intake: current Alcohol intake frequency: holidays/special occasions only Patient Tobacco Use Status: Never used Tobacco e-Cigarette/Vaping Use: Never Used Second Hand Smoke Exposure: Yes service: No Current occupational status: employed 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 Cognitive needs: No Hearing needs: No Vision needs: Yes (Reading glasses) Female Reproductive History Menstrual Age of Menarche: 13 Review of Systems Const Reports body aches, Reports chills, Reports fatigue, Reports fever(s) and Reports malaise ENT Reports nasal congestion and Reports sore throat Card Denies rapid heart rate, Denies dyspnea and Denies dyspnea on exertion Resp Denies dyspnea and Denies dyspnea on exertion GI Denies dyspepsia and Denies heartburn Musc Denies arthralgias and Denies muscle cramps Endo Reports fatigue Physical Exam Vital Signs: Last Vital Signs Temp 97.9 F 04/03/23 13:14 Pulse 90 04/03/23 13:14 BP 138/78 04/03/23 13:14 Pulse Ox 96 04/03/23 13:14 Oxygen Delivery Method Room Air 04/03/23 13:14 BMI result Body Mass Index 38.0 Const General: healthy appearing and no acute distress HEENT Mouth: Normal oral and palatal mucosa present Resp Effort & Inspection: normal respiratory effort and able to speak in complete sentences Auscultation: clear to auscultation bilaterally Cardio Rate: regular rate Rhythm: regular rhythm Assessment & Plan Assessment & Plan (1) URI (upper respiratory infection): Code(s): J06.9 - Acute upper respiratory infection, unspecified Plan A/P - URI Discussed etiology of URI and lack of role of antibiotics in treating viral illnesses. Discussed typical course of illness and supportive measures. Discussed reasons to return including SOB, VIZCARRA, not improving after 1-2 weeks, worsening of symptoms. No evidence of bacterial infection such as suppurative otitis media, strep throat, bacterial sinusitis, or pneumonia. COVID test ordered. Work note given Orders: Orders [employer] Covid-19 Ag Today J06.9 - Acute upper respiratory infection, unspecified Coding Level of Care Code Est Pt Level 3 (20495) Diagnoses URI (upper respiratory infection) J06.9
[2023-04-03 13:14] VITALS: BP 138/78; PULSE 90; TEMP 36.6; O2SAT 96; BMI 38.0
== END 2023-04-03 14:03 | disposition home or self-care (01) ==
PROVIDERS: PCP Internal Medicine; Visit Provider Emergency Medicine
DX: J06.9 Acute upper respiratory infection, unspecified (principal)
CPT/HCPCS: 99213

== ENCOUNTER 2023-04-03 13:39 | Outpatient (REF) | payer OTHER, SELFPAY ==
[2023-04-03 14:06] LABS: Binax Now Covid-19 Ag Negative (Negative)
[2023-04-03 14:07] LABS: Binax Internal Control QC Valid
== END 2023-04-03 13:40 | disposition home or self-care (01) ==
LOC: HO.HMGCLDS 13:39
PROVIDERS: PCP Internal Medicine; Visit Provider Emergency Medicine
DX: Z20.822 Contact with and (suspected) exposure to COVID-19 (principal); J06.9 Acute upper respiratory infection, unspecified
CPT/HCPCS: 87811; C9803

== ENCOUNTER 2023-06-13 07:19 | Outpatient (REF) | payer OTHER, SELFPAY ==
[2023-06-13 07:57] LABS: Estimated Average Glucose 160 mg/dL; Hemoglobin A1c % 7.2 % (<6.0)
[2023-06-13 08:21] LABS: Alanine Aminotransferase 54 U/L (0-31); Albumin Level 3.9 g/dL (3.5-5.0); Alkaline Phosphatase 87 U/L (39-117); Anion Gap 11 (12-20); Aspartate Amino Transferase 56 U/L (5-31); Bilirubin Total 0.9 mg/dL (0.0-1.0); Blood Urea Nitrogen 17 mg/dL (9-16); Calcium 9.1 mg/dL (8.4-10.2); Carbon Dioxide 29 mmol/L (22-29); Chloride 106 mmol/L (96-108); Cholesterol 163 mg/dL (<200); Estimated Glomerular Filt Rate > 60; Glucose Fasting 138 mg/dL (60-99); HDL Cholesterol 28 mg/dL (>40); LDL Cholesterol Calculated 104 mg/dL (<100); Potassium 4.3 mmol/L (3.3-5.1); Sodium 142 mmol/L (135-145); Total Protein 7.7 g/dL (6.5-8.0); Triglycerides 155 mg/dL (<150)
[2023-06-13 08:23] LABS: Appearance Urine Clear; Color Urine Yellow; Glucose Urine UA Negative (Negative); Leukocyte Esterase Urine Negative (Negative); Nitrite Urine Negative (Negative); Specific Gravity - Urine >= 1.030 (1.005-1.025); Urine Blood Negative (Negative); Urine Ketones Trace mg/dL (Negative); Urine Protein Negative (Neg-Trace)
[2023-06-13 08:41] LABS: Free T4 (Free Thyroxine) 0.96 ng/dL (0.71-1.85); Thyroid Stimulating Hormone 4.72 uIU/mL (0.32-4.0); Vitamin D 25-OH Total 19.2 ng/mL (>30)
[2023-06-13 08:48] LABS: Folate 10.4 ng/mL (> or = 4.0); Vitamin B12 327 pg/mL (200-900)
[2023-06-13 08:54] LABS: Creatinine Urine 254.26 mg/dL; Microalbum/Creatinine Ratio Ur 8.2 ug/mg cr (<30)
== END 2023-06-13 07:20 | disposition home or self-care (01) ==
LOC: HO.LAB 07:19
PROVIDERS: PCP Internal Medicine; Visit Provider Internal Medicine
DX: E78.00 Pure hypercholesterolemia, unspecified (principal); E11.9 Type 2 diabetes mellitus without complications; E55.9 Vitamin D deficiency, unspecified; E03.9 Hypothyroidism, unspecified; R30.0 Dysuria; E53.8 Deficiency of other specified B group vitamins
CPT/HCPCS: 36415; 80053; 80061; 81003; 82043; 82306; 82570; 82607; 82746; 83036; 84439; 84443

== ENCOUNTER 2023-06-16 09:00 | Outpatient (AMB) | payer OTHER, SELFPAY ==
[2023-06-16 09:04] VITALS: BP 132/84; PULSE 88; O2SAT 97; BMI 37.7
--- NOTE | 2023-06-16 09:04 | MHC.PC.OV ---
Vital Signs 06/16/23 09:04 Height 5 ft 6 in Weight 233 lb 6 oz BMI 37.7 BP 132/84 Blood Pressure Location Lt brachial Position Sitting Pulse 88 Pulse Source Pulse Oximeter Pulse Oximetry (%) 97 Oxygen Delivery Method Room Air Intake Visit Reasons: follow up User Experience Lead Required: No Accompanied by: Self / Same As Patient Allergies No Known Allergies Allergy (Verified 06/16/23 09:20) Medication List - Last Reconciled 06/16/23 by Nik Hunt MD acetaminophen-codeine 300-30 mg 1 tab PO Q8H PRN apixaban (Eliquis) 5 mg PO BID cholecalciferol (vitamin D3) 50 mcg PO DAILY 90 days clotrimazole-betamethasone 1-0.05 % 1 appl topical BID 2 weeks cyclobenzaprine 10 mg PO TID PRN 10 days doxepin 10 mg PO BEDTIME gabapentin 600 mg PO TID 30 days hydroxyzine HCl 25 mg PO TID PRN 30 days levothyroxine 50 mcg PO DAILY 30 days lisinopril 5 mg PO DAILY 30 days mecobalamin (vitamin B12) 1,000 mcg sublingual DAILY 90 days mupirocin 2% 1 appl topical TID omeprazole 20 mg PO DAILY ropinirole 1 mg PO BEDTIME 30 days sertraline 100 mg PO DAILY tamsulosin (Flomax) 0.4 mg PO DAILY 14 days Tobacco use date assessed: 06/16/23 Dental Screening Dental Screen Date: 06/16/23 Did you have a dental visit in the last 12 months?: No Did you have a dental problem in the last 6 months where you did not have access to dental care?: No Was dental information given to patient?: Patient has dentist HPI follow up HPI Details Patient comes in today for her follow up visit States that she feels okay but continues to feel fatigued often She denies any headaches or dizziness Denies any chest pains, no SOB No nausea/vomiting, no abdominal pain No change in bowel habits noted Needs her Apixaban Rx refilled Had her follow up labs done a few days ago - to discuss her results [facility] Medical History (Updated 06/16/23 @ 09:25 by Nik Hunt MD) Diabetes mellitus Acquired hypothyroidism Benign essential hypertension Pain and swelling of right lower extremity Obesity (BMI 30-39.9) Anxiety GERD (gastroesophageal reflux disease) Restless leg syndrome Impaired fasting glucose Stasis edema of both lower extremities Vitamin D deficiency Vitamin B12 deficiency Peripheral neuropathy Lumbar degenerative disc disease Dyslipidemia Hypercoagulable state Hx of deep venous thrombosis Surgical History Hx of endoscopy Hx of colonoscopy History of endometrial ablation History of eye surgery History of surgery History of tubal ligation History of section Family History Father Colon cancer Mother Diabetes Breast cancer Sister Colon cancer Social History Household Members: None Housing: Apartment Are you a primary career technical supervisor to a significant other at home: No Do you presently have visiting nurse or other home services: No Alcohol intake: current Alcohol intake frequency: holidays/special occasions only Patient Tobacco Use Status: Never used Tobacco e-Cigarette/Vaping Use: Never Used Second Hand Smoke Exposure: Yes service: No Current occupational status: employed 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 1. Little interest or pleasure in doing things: several days 2. Feeling down, depressed, or hopeless: several days 3. Trouble falling or staying asleep, or sleeping too much: several days 4. Feeling tired or having little energy: several days 5. Poor appetite or overeating: several days 6. Feeling bad about yourself - or that you are a failure or have let yourself or your family down: several days 7. Trouble concentrating on things, such as reading the newspaper or watching television: several days 8. Moving or speaking so slowly that other people could have noticed. Or the opposite - being so fidgety or restless that you have been moving around a lot more than usual: several days 9. Thoughts that you would be better off or of hurting yourself in some way: several days Total score: 9 Depression Screening Interpretation: Positive Depression Screening Follow-up: Existing condition and In treatment Depression Screening Done: Yes 21002 - PHQ-9 Billing: Yes Source: Developed by Drs. Mahendra iJmenez, Jose Luis Johnson and colleagues, with an educational kaden from [employer]. Thrive Questionnaire Date Thrive assessed: 06/16/23 I am a: Patient What is your living situation today?: I have a steady place to live Within the past 12 months, did the food you bought not last and you didn't have the money to get more?: Never true Within the past 12 months, did you worry whether your food would run out before you got money to buy more?: Never true Do you have trouble paying for medicines?: No Do you have trouble getting transportation to medical appointments?: No Do you have trouble paying your heating and electricity bill?: No Do you have trouble taking care of your child, family member or friend?: No Do you have trouble with day-to-day activities such as bathing, preparing meals, shopping, managing finances, etc.?: No Are you currently unemployed and looking for a job?: No Are you interested in more education?: No Please select the resources that you would like help with: None Currently or been in a relationship where the following occur: no concerns reported AUDIT C Alcohol Use Questionnaire (AUDIT-C) 1. How often do you have a drink containing alcohol?: Never 3. How often do you have six or more drinks on one occasion?: Never Total Score: 0 Score Reviewed/Action Taken: Yes TONO-7 AMB Questionnaire TONO-7 Date TONO - 7 assessed: 06/16/23 Feeling nervous, anxious, or on edge: 1 = Several days Not being able to stop or control worryin = Several days Worrying too much about different things: 1 = Several days Trouble relaxin = Several days Being so restless that it is hard to sit still: 1 = Several days Becoming easily annoyed or irritable: 1 = Several days Feeling afraid as if something awful might happen: 0 = Not at all Total TONO-7 score (0-4 normal; 5-9 mild; 10-14 moderate; 15-21 severe): 6 Source: Developed by Drs. Mahendra Jimenez, Jose Luis Johnson and colleagues, with an educational kaden from [employer]. Review of Systems Const Denies chills, Reports difficulty sleeping (due to her RLS), Reports fatigue, Denies fever(s) and Denies headache(s) ENT Denies dysphagia, Denies dizziness, Denies otalgia, Denies headache(s), Denies neck pain, Denies odynophagia and Denies sore throat Card Denies chest pain, Denies rapid heart rate, Denies irregular heart rhythm, Denies palpitations and Denies dyspnea Resp Denies cough, Denies dyspnea and Denies wheezing GI Denies abdominal pain, Denies constipation, Denies dysphagia, Denies heartburn, Denies diarrhea, Denies nausea, Denies odynophagia and Denies vomiting Denies hematuria, Denies urinary frequency, Denies dysuria, Denies urinary incontinence and Denies urinary urgency Musc Details: recurrent swelling of both legs and feet lately Reports back pain (over the lower back - chronic), Denies arthralgias and Denies neck pain Skin/Breast Denies rash Neuro Denies dizziness, Denies headache(s), Reports restless legs (increased lately) and Denies paresthesias Psych Denies anxiety Endo Reports fatigue and Denies palpitations Ernesto/Lymph Denies easy bruising Aller/Immun Denies wheezing Physical exam (Primary Care) Vital Signs: Last Vital Signs Pulse 88 06/16/23 09:04 BP 132/84 06/16/23 09:04 Pulse Ox 97 06/16/23 09:04 Oxygen Delivery Method Room Air 06/16/23 09:04 BMI result Body Mass Index 37.7 Tobacco/Smoking Status: Tobacco use Status Tobacco use date assessed 06/16/23 06/16/23 09:10 Patient Tobacco Use Status Never used Tobacco 06/16/23 09:10 e-Cigarette/Vaping Use Never Used 06/16/23 09:10 PHQ-9: PHQ-9 Score PHQ-9: Total score 9 06/16/23 09:10 Depression Screening Interpretation: Positive Depression Screening Follow-up: Existing condition and In treatment Thrive Assessment: Date of Thrive Assessment Date Thrive assessed 06/16/23 06/16/23 09:10 Currently or been in a relationship where the following occur: no concerns reported Const General: no acute distress and alert HENMT Ears: TM's normal bilaterally and EAC's normal Throat: Yes posterior oropharynx normal and Yes tonsils normal (no TP congestion) Neck Neck: Yes no lymphadenopathy and Yes supple Thyroid: Thyroid normal Resp Auscultation: clear to auscultation bilaterally, no rales and no wheezes Cardio Rate: regular rate Rhythm: regular rhythm Heart sounds: no murmurs GI Palpation (GI): Soft to palpation and nontender Auscultation: normal bowel sounds Back/Spine/Pelvis Thoracic/Lumbar Spine: lumbar spinal tenderness Extrem General: No clubbing, No cyanosis and Yes pedal edema (trace, bilaterally) Results Reviewed Results Reviewed: Laboratory Tests 06/13/23 06/13/23 07:28 07:29 Sodium 142 Potassium 4.3 Creatinine 0.79 Estimated GFR > 60 Fasting Glucose 138 H Hemoglobin A1c % 7.2 H Calcium 9.1 AST 56 H ALT 54 H Triglycerides 155 H Cholesterol 163 LDL Cholesterol, Calc 104 H HDL Cholesterol 28 L Vitamin B12 327 25-OH Vitamin D Total 19.2 L TSH 4.72 H Free T4 0.96 Ur Specific [place] >= 1.030 H Urine Protein Negative Urine Glucose (UA) Negative Urine Blood Negative Microalb/Creat Ratio 8.2 Assessment and Plan Assessment & Plan (1) Diabetes mellitus: Code(s): E11.9 - Type 2 diabetes mellitus without complications Qualifiers: Diabetes mellitus type: type 2 Diabetes mellitus usp insulin use: without long term care administrator use Diabetes mellitus complication status: with hyperglycemia Qualified Code(s): E11.65 - Type 2 diabetes mellitus with hyperglycemia Plan: HgbA1c was at 7.2% on her labs done a few days ago (was at 6.5% when last checked in October 2022) - goal is <7.0% Advised patient that she is now a diabetic and is no longer just borderline Reinforced diabetic diet Will start her on Metformin ER 500 mg Q PM (2) Benign essential hypertension: Code(s): I10 - Essential (primary) hypertension Plan: Reinforced low sodium diet - goal is systolic BP of 120 mm or less Continue Lisinopril 5 mg QD Patient is reminded to continue monitoring her BP regularly (3) Dyslipidemia: Code(s): E78.5 - Hyperlipidemia, unspecified Plan: Results of her labs done a few days ago reviewed and discussed with patient Reinforced low cholesterol diet Will hold off on starting patient on statins as her LFTs remain elevated Will recheck her labs and fasting lipids in 3 months for follow up (4) Hypercoagulable state: Comment: 1st DVT in 2004 after back surgery; 2nd DVT in 2012 - unprovoked; on Xarelto since 2012; had R femoral DVT in 01/2021 - Rx switched to Eliquis Code(s): 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 Holt) as scheduled (5) Lumbar degenerative disc disease: Code(s): M51.36 - Other intervertebral disc degeneration, lumbar region Plan: Reinforced activity and weight-lifting restrictions Continue Cyclobenzaprine 10 mg 3 times a day as needed, Gabapentin 300 mg 2 capsule 3 times a day and Tapentadol 50 mg every 6-8 hours as needed for increased pain (6) Peripheral neuropathy: Code(s): G62.9 - Polyneuropathy, unspecified Qualifiers: Peripheral neuropathy type: polyneuropathy, unspecified Qualified Code(s): G62.9 - Polyneuropathy, unspecified Plan: States that Gabapentin helps with her symptoms Follow up with neurology (Dr. Esquivel) as scheduled (7) Acquired hypothyroidism: Code(s): E03.9 - Hypothyroidism, unspecified Plan: Serum TSH is still elevated and free T4 is low on her recent labs Will increase her Levothyroxine now to 75 mcg QD Will recheck her TFTs in 3 months for follow up (8) Vitamin B12 deficiency: Code(s): E53.8 - Deficiency of other specified B group vitamins Plan: Continue Vitamin B12 1000 mg QD (9) Vitamin D deficiency: Code(s): E55.9 - Vitamin D deficiency, unspecified Plan: Cautioned that her Vitamin D level has declined from previous on her recent labs Will increase her Vitamin D3 temporarily to 4000 units QD (10) GERD (gastroesophageal reflux disease): Comment: EGD-biopsies no H pylori, continue omeprazole 20 mg daily Code(s): K21.9 - Gastro-esophageal reflux disease without esophagitis Qualifiers: Esophagitis presence: without esophagitis Qualified Code(s): K21.9 - Gastro-esophageal reflux disease without esophagitis Plan: Dietary restrictions reinforced Continue Omeprazole 20 mg QD (11) Restless leg syndrome: Code(s): G25.81 - Restless legs syndrome Plan: Continue Ropinirole 1 mg Q HS (12) Varicose veins of right lower extremity with inflammation: Comment: 04/12/2022 - right small saphenous vein radiofrequency ablation Code(s): I83.11 - Varicose veins of right lower extremity with inflammation Plan: Follow up with vascular surgery as scheduled Advised that this is most likely the reason for her recent lower extremity edema and she can try wearing compression stockings and also try to keep her legs elevated as often as she can throughout the day to help manage her edema better (13) Calcaneal spur of both feet: Code(s): M77.31 - Calcaneal spur, right foot; M77.32 - Calcaneal spur, left foot Plan: X-rays of both feet done in 03/2021 revealed (+) bilateral calcaneal spurs Follow up with podiatry as scheduled Has been receiving cortisone injections lately, which she states do not really help and does not want to get them any more - plans to speak to podiatry about this (14) Tinea corporis: Code(s): B35.4 - Tinea corporis Plan: Continue Lotrisone cream BID PRN (15) Anxiety: Code(s): F41.9 - Anxiety disorder, unspecified Plan: Continue Sertraline 100 mg QD and Doxepin 10 mg Q HS Follow up with psychiatry as scheduled (16) Obesity (BMI 30-39.9): Code(s): E66.9 - Obesity, unspecified Plan: Reinforced diet/exercise as tolerated/lose weight Plan Follow up in 3 months Orders: Orders Comprehensive [place]. Panel Fast 3 Months E78.00 - Pure hypercholesterolemia, unspecified Lipid Panel 3 Months E78.00 - Pure hypercholesterolemia, unspecified Hemoglobin A1c 3 Months E11.9 - Type 2 diabetes mellitus without complications Thyroid Stimulating Hormone 3 Months E03.9 - Hypothyroidism, unspecified Free T4 (Free Thyroxine) 3 Months E03.9 - Hypothyroidism, unspecified Complete Blood Count Auto Diff 3 Months I10 - Essential (primary) hypertension Microalbumin, Random (w Creat) 3 Months E11.9 - Type 2 diabetes mellitus without complications Vitamin D 25-OH Total 3 Months E55.9 - Vitamin D deficiency, unspecified UA CC w/rflx Micro + Cult 3 Months R30.0 - Dysuria Medications: New metformin ER 500 mg PO QPM 30 tabs 3RF 30 days E11.9 - Type 2 diabetes mellitus without complications Changed From cholecalciferol (vitamin D3) 50 mcg PO DAILY 90 days 90 caps 3RF E55.9 - Vitamin D deficiency, unspecified To cholecalciferol (vitamin D3) 100 mcg (2 x 50 mcg (2,000 unit)) PO DAILY 180 caps 3RF 90 days E55.9 - Vitamin D deficiency, unspecified From apixaban (Eliquis) 5 mg PO BID 60 tabs 4RF To apixaban (Eliquis) 5 mg PO BID 180 tabs 3RF 90 days From levothyroxine Take on an empty stomach, first thing in the morning, with water. Do not eat or drink anything else for 30 minutes afterwards 50 mcg PO DAILY 30 days 30 tabs 3RF E03.9 - Hypothyroidism, unspecified To levothyroxine Take on an empty stomach, first thing in the morning, with water. Do not eat or drink anything else for 30 minutes afterwards 75 mcg PO DAILY 30 tabs 3RF 30 days E03.9 - Hypothyroidism, unspecified Coding Level of Care Code Est Pt Level 4 (40292) Diagnoses Type 2 diabetes mellitus with hyperglycemia, without long-term current use of insulin E11.65 Diabetes mellitus type: type 2 Diabetes mellitus long term care administrator insulin use: without long term care administrator use Diabetes mellitus complication status: with hyperglycemia Benign essential hypertension I10 Dyslipidemia E78.5 Hypercoagulable state D68.59 Lumbar degenerative disc disease M51.36 Peripheral polyneuropathy G62.9 Peripheral neuropathy type: polyneuropathy, unspecified Acquired hypothyroidism E03.9 Vitamin B12 deficiency E53.8 Vitamin D deficiency E55.9 Gastroesophageal reflux disease without esophagitis K21.9 Esophagitis presence: without esophagitis Restless leg syndrome G25.81 Varicose veins of right lower extremity with inflammation I83.11 Calcaneal spur of both feet M77.31; M77.32 Tinea corporis B35.4 Anxiety F41.9 Obesity (BMI 30-39.9) E66.9
== END 2023-06-16 09:41 | disposition home or self-care (01) ==
PROVIDERS: PCP Internal Medicine; Visit Provider Internal Medicine
DX: E11.65 Type 2 diabetes mellitus with hyperglycemia (principal); I10 Essential (primary) hypertension; E78.5 Hyperlipidemia, unspecified; D68.59 Other primary thrombophilia; M51.36 Other intervertebral disc degeneration, lumbar region; G62.9 Polyneuropathy, unspecified; E03.9 Hypothyroidism, unspecified; E53.8 Deficiency of other specified B group vitamins; E55.9 Vitamin D deficiency, unspecified; K21.9 Gastro-esophageal reflux disease without esophagitis; G25.81 Restless legs syndrome; I83.11 Varicose veins of right lower extremity with inflammation
CPT/HCPCS: 99214

== ENCOUNTER 2023-06-30 10:55 | Outpatient (AMB) | payer OTHER, SELFPAY ==
[2023-06-30 12:34] VITALS: BP 122/78; PULSE 90; TEMP 36.2; O2SAT 96; BMI 37.6
--- NOTE | 2023-06-30 12:34 | AM.OFFWIN_ITS ---
Intake Vital Signs 06/30/23 12:34 Height 5 ft 6 in Weight 105.744 kg BMI 37.6 BP 122/78 Blood Pressure Location Lt brachial Position Sitting Pulse 90 Pulse Source Pulse Oximeter Temp 97.2 F Temp Source Temporal Artery Scan Pulse Oximetry (%) 96 Oxygen Delivery Method Room Air Intake Visit Reasons: EST/cold symptomsX3 weeks ([phone]) Intake Note: pt is here for c/o fever, stuffy nose, cough since yesterday Patient Tobacco Use Status: Never used Tobacco Allergies No Known Allergies Allergy (Verified 06/30/23 12:35) Do you need a note to return to daycare/school/sports/work: Yes HPI HPI Comments History of Present Illness Details 52 -year-old who presents with fatigue, malaise, myalgias, cough, subjective fevers and chills that started yesterday patient's client is currently COVID positive? Denies chest pain, shortness of breath, nausea, vomiting, abdominal pain, headache vision change, dizziness, weakness, changes in bowel or urinary habits Physical exam benign History and physical exam concerning for viral illness versus bronchitis versus flu versus COVID versus RSV.? Unlikely pneumonia, ACS, dissection, pulmonary embolism, acute respiratory distress Plan at this time will discharge patient home with supportive measures.? Educated patient on diagnosis and treatment plan, answered all question, patient verbalizes understanding.? At this time patient will be discharged home, advised to return with new or worsening symptoms.? Educated on worrisome signs and symptoms and when to return.? At this time I feel comfortable discharge home. [facility] Medical History Diabetes mellitus Acquired hypothyroidism Benign essential hypertension Pain and swelling of right lower extremity Obesity (BMI 30-39.9) Anxiety GERD (gastroesophageal reflux disease) Restless leg syndrome Impaired fasting glucose Stasis edema of both lower extremities Vitamin D deficiency Vitamin B12 deficiency Peripheral neuropathy Lumbar degenerative disc disease Dyslipidemia Hypercoagulable state Hx of deep venous thrombosis Surgical History Hx of endoscopy Hx of colonoscopy History of endometrial ablation History of eye surgery History of surgery History of tubal ligation History of section Family History Father Colon cancer Mother Diabetes Breast cancer Sister Colon cancer Social History Household Members: None Housing: Apartment Are you a primary animal care technician to a significant other at home: No Do you presently have visiting nurse or other home services: No Alcohol intake: current Alcohol intake frequency: holidays/special occasions only Patient Tobacco Use Status: Never used Tobacco e-Cigarette/Vaping Use: Never Used Second Hand Smoke Exposure: Yes service: No Current occupational status: employed Current occupation: [employer] Cognitive needs: No Hearing needs: No Vision needs: Yes (Reading glasses) Female Reproductive History Menstrual Age of Menarche: 13 Review of Systems Const Details: As per HPI All systems reviewed & are unremarkable except as noted in HPI and below Physical Exam Vital Signs: vss Appearance: Alert.? Oriented X3.? No acute distress.? Head: Normocephalic, atraumatic, no step-offs or deformities Eyes: Pupils equal, round and reactive to light.? ENT: Pharynx normal.? Neck: Normal inspection.? Neck supple.? CVS: Normal heart rate and rhythm.? Pulses normal.? Respiratory: No respiratory distress.? Breath sounds normal.? Abdomen: Soft and nontender.? Skin: Skin warm and dry.? Normal skin color.? Normal skin turgor.? Extremities: No lower extremity edema.? No calf ttp. 5/5 strength to bilateral upper and lower extremities Neuro: Oriented X 3.? No motor deficit.? No sensory deficit. CN 2-12 intact Assessment & Plan Assessment & Plan (1) Viral illness: Code(s): B34.9 - Viral infection, unspecified Plan Take your medications as prescribed. If you were prescribed antibiotics today, it is important that you take your medication to their entirety, do not skip any doses, do not finish them early. Follow-up with your primary care provider this week. Return to the emergency department with new or worsening symptoms. Such as fevers, chills, chest pain, shortness of breath, nausea, vomiting, dizziness, headache, vision changes, lethargy In case of emergency call 911 Orders: Orders [facility] Covid-19 Ag Today B34.9 - Viral infection, unspecified Coding Level of Care Code Est Pt Level 3 (63329) Diagnoses Viral illness B34.9
== END 2023-06-30 13:25 | disposition home or self-care (01) ==
PROVIDERS: PCP Internal Medicine; Visit Provider Physician Assistant
DX: B34.9 Viral infection, unspecified (principal)
CPT/HCPCS: 99213

== ENCOUNTER 2023-06-30 12:57 | Outpatient (REF) | payer OTHER, SELFPAY ==
[2023-06-30 13:47] LABS: Binax Internal Control QC Valid; Binax Now Covid-19 Ag Positive (Negative); Binax Performed by: HO.TORG
== END 2023-06-30 12:58 | disposition home or self-care (01) ==
LOC: HO.HMGCLDS 12:57
PROVIDERS: PCP Internal Medicine; Visit Provider Physician Assistant
DX: Z11.52 Encounter for screening for COVID-19 (principal); B34.9 Viral infection, unspecified
CPT/HCPCS: 87811

== ENCOUNTER 2023-08-11 11:25 | Outpatient (REF) | payer OTHER, SELFPAY ==
[2023-08-12 06:01] LABS: CT PCR NOT DETECTED (Not Detect.); NG PCR NOT DETECTED (Not Detect.)
[2023-08-12 12:32] LABS: BV Int Neg Control Negative (Negative); BV Int Pos Control Positive (Positive)
== END 2023-08-11 11:26 | disposition home or self-care (01) ==
LOC: HO.LNP 11:25
PROVIDERS: PCP Internal Medicine; Visit Provider Advanced Practice Midwife
DX: Z01.419 Encounter for gynecological examination (general) (routine) without abnormal findings (principal); Z20.2 Contact with and (suspected) exposure to infections with a predominantly sexual mode of transmission; Z80.3 Family history of malignant neoplasm of breast
CPT/HCPCS: 0353U; 87480; 87510; 87660

== ENCOUNTER 2023-08-11 11:25 | Outpatient (AMB) | payer OTHER, SELFPAY ==
[2023-08-11 11:27] VITALS: BP 120/72; BMI 37.4
--- NOTE | 2023-08-11 11:27 | MHC.OFFVIS ---
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 Required: No Information Interpreted: non-clinical & clinical Rolls Baker: Rolls Baker Present (Danie) Allergies No Known Allergies Allergy (Verified 08/11/23 11:29) Medication List - Last Reconciled 08/11/23 by Andreina Cardenas CNM albuterol sulfate 90 mcg/actuation (Ventolin HFA) 1 inh inhalation QID PRN apixaban (Eliquis) 5 mg PO BID 90 days cholecalciferol (vitamin D3) 100 mcg (2 x 50 mcg (2,000 unit)) PO DAILY 90 days clotrimazole-betamethasone 1-0.05 % 1 appl topical BID 2 weeks cyclobenzaprine 10 mg PO TID PRN 10 days doxepin 10 mg PO BEDTIME gabapentin 600 mg PO TID 30 days hydroxyzine HCl 25 mg PO TID PRN 30 days levothyroxine 75 mcg PO DAILY 30 days lisinopril 5 mg PO DAILY 30 days mecobalamin (vitamin B12) 1,000 mcg sublingual DAILY 90 days metformin ER 500 mg PO QPM 30 days mupirocin 2% 1 appl topical TID omeprazole 20 mg PO DAILY ropinirole 1 mg PO BEDTIME 30 days sertraline 100 mg PO DAILY Is last menstrual period known: No Patient : No HPI Annual HPI Details 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 She has not due for Pap smear this year she has not having any concerns about discharge. She does want STI testing. She has numerous medical problems including a new diagnosis is of diabetes for which she was given metformin and is going to be seeing her primary in 3 months. She has a history of back surgery and after that she got a clot in her leg and she is on Eliquis and will be for the rest of her life. She had abnormal findings on her breasts in the past but currently she is getting yearly mammograms and says she will not miss them. Her friend gave her treadmill and she is going to be putting it in her basement so that she can walk on it. 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 [facility] Medical History Diabetes mellitus Acquired hypothyroidism Benign essential hypertension Pain and swelling of right lower extremity Obesity (BMI 30-39.9) Anxiety GERD (gastroesophageal reflux disease) Restless leg syndrome Impaired fasting glucose Stasis edema of both lower extremities Vitamin D deficiency Vitamin B12 deficiency Peripheral neuropathy Lumbar degenerative disc disease Dyslipidemia Hypercoagulable state Hx of deep venous thrombosis Surgical History Hx of endoscopy Hx of colonoscopy History of endometrial ablation History of eye surgery History of surgery History of tubal ligation History of section Family History Father Colon cancer Mother Diabetes Breast cancer Sister Colon cancer Social History Household Members: None Housing: Apartment Are you a primary summer child caregiver to a significant other at home: No Do you presently have visiting nurse or other home services: No Alcohol intake: current Alcohol intake frequency: holidays/special occasions only Patient Tobacco Use Status: Never used Tobacco e-Cigarette/Vaping Use: Never Used Second Hand Smoke Exposure: Yes service: No Current occupational status: employed Current occupation: [employer] Cognitive needs: No Hearing needs: No Vision needs: Yes (Reading glasses) Female Reproductive History Menstrual Age of Menarche: 13 control method: other (tubal ligation) Total pregnancies: 2 Full term: 2 Number of Living Children: 2 Date of last pap smear: 07/31/21 (negative) History of abnormal pap smear: No Date of Mammogram: 10/12/22 Physical Exam Vital Signs: Last Vital Signs BP 120/72 08/11/23 11:27 BMI result Body Mass Index 37.4 Const General: healthy appearing, comfortable, no acute distress, well developed and alert Nutritional Appearance: average body habitus Orientation/consciousness: patient oriented x3 Limitations: no limitations HEENT Head: Yes normocephalic Neck Neck: Yes normal visual inspection Chest Chest palpation & inspection: normal inspection of the chest Breast/axilla inspection: normal inspection of the breasts and normal inspection of the axillae Breast/axilla palpation: normal palpation of the breasts and normal palpation of the axillae Resp Effort & Inspection: normal respiratory effort GI Inspection: Yes normal to inspection, No Abdominal wall edema and No distended Palpation (GI): Soft to palpation and nontender Other: Normal external exam vagina pink moist with a homogeneous white discharge possibly consistent with the presence of Gardnerella we will await cultures. She has not having any symptoms of anything. Cervix multiparous pink moist mobile nontender adnexa nontender uterus nontender not enlarged good tone with Kegel General: Yes bladder normal to palpation External Female Exam: normal external appearance and normal appearance of the urethra Speculum Exam - Vagina: normal appearance of the vagina, normal palpation and normal vaginal discharge Speculum Exam - Cervix: normal appearance of the cervix, normal palpation and nontender Bimanual exam- vagina & uterus: normal bimanual exam, normal palpation, uterine size normal, bladder normal to palpation, consistency normal, normal palpation, uterine mobility normal, uterine shape normal, No Cervical tenderness present, non-tender and no cervical motion tenderness Bimanual Exam- Adnexa, other: normal adnexae, no masses, normal and No adnexal tenderness Neuro General: patient oriented x3 Results Reviewed Results Reviewed: Patient: Bethany Shetty MR#: [id number] : 1970 Acct:[id number] Age/Sex: 51 / F ADM Date: 10/12/22 Loc: .MAMMO Attending Dr: Andreina Cardenas CNM Ordering Physician: Andreina Cardenas CNM Results: 1Negative Date of Service: 10/12/22 Follow Up: 1 Year From Original Mammogram Procedure(s): MM tomosynthesis screening BI Accession Number(s): [id number] cc: Andreina Cardenas CNM~ EXAMINATION: MM SCREENING DIGITAL BREAST TOMOSYNTHESIS, BILATERAL CLINICAL INFORMATION: Screening. Asymptomatic. History DDH left breast, status post excision 12/21/2012. The lifetime risk of breast cancer based on the Tyrer-Cuzick Model is 14%. COMPARISON: Multiple prior exams, most recent 10/06/2021 TECHNIQUE: Digital breast tomosynthesis is performed in both the craniocaudal and mediolateral oblique views along with computer-aided detection (CAD). Synthesized 2D images are generated from the tomosynthesis. FINDINGS: There are scattered areas of fibroglandular density (ACR BI-RADS breast composition Category b). Parenchymal pattern is similar to prior studies and there is no developing density or interval mass or architectural abnormality. There are scattered stable calcifications. The axilla and skin contours are unremarkable. There are no significant changes. MM/MM tomosynthesis screening BI IMPRESSION: No mammographic evidence of malignancy. ASSESSMENT: BI-RADS 2: Benign RECOMMENDATION: Routine annual mammography screening. This patient's information was entered into a reminder system with a target due date for their next mammogram. Dictated By: Bossman Sousa MD Signed By: <Electronically signed by Bossman Sousa MD in OV> 10/14/22 1627 DD/ 1040 TD/TT: Crystal Calibrator: ACOSTA Name: Bethany Shetty Age/Sex: 50/F Attending: Andreina Cardenas CNM : 1970 Submitted by: Andreina Cardenas CNM Copies to: Nik Hunt MD MR #: [id number] Status: DEP REF Collected: 07/30/21 Location: [facility] Received: 07/31/21 Interpretation Satisfactory for evaluation. Coccobacilli consistent with shift in vaginal lisa. Negative for intraepithelial lesion or malignancy. HPV mRNA E6/E7: NOT DETECTED This assay detects E6/E7 viral messenger RNA (mRNA) from 14 high-risk HPV types (16, 18, 31, 33, 35, 39, 45, 51, 52, 56, 58, 59, 66, 68) HPV testing performed by [facility], [place], [place]. See reference laboratory portion of the EMR for entire report. Clinical Information LMP: Postmenopausal Previous PAP test: 2016, Unknown findings Material Received ThinPrep-Cervical Copies To Nik Hunt MD [address] [place], [place] [id number] Andreina Cardenas [address] DrMartha Moran [address] [place] [address] [id number] Electronically Signed By: HOOD Demarco (ASCP) 08/10/21 3078 The Pap Test is a screening procedure with the inherent possibility of both false negative and false positive results. Results should be interpreted in the context of historic and current clinical findings. Reliability of the Pap Test is enhanced by performing the test on a regular repetitive basis. Patient: Bethany Shetty Age/Sex: 50/F MR#: [id number] Page 1 of 1 Assessment & Plan Assessment & Plan (1) Screen for sexually transmitted diseases: Code(s): Z11.3 - Encounter for screening for infections with a predominantly sexual mode of transmission (2) Family history of breast cancer in first degree relative: Comment: her mother... 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 (6) Diabetes mellitus: Code(s): E11.9 - Type 2 diabetes mellitus without complications Qualifiers: Diabetes mellitus type: type 2 Diabetes mellitus ferry terminal supervisor insulin use: without ferry terminal supervisor use Diabetes mellitus complication status: with hyperglycemia Qualified Code(s): E11.65 - Type 2 diabetes mellitus with hyperglycemia Plan -----Discussed in this visit the following: healthy balanced diet, regular and consistent exercise, getting recommended health screens, doing the best she can for her particular health concerns, kegel exercises, pap smear screening and followup recommendations, mammography screening and SBE, normal changes in cycles in her life stage--- Wished her luck with trying to manage her challenging work schedule and get enough sleep and eat well and get some movement and exercise to prevent any other health challenges. Suggested more movement. Suggested speaking with her primary about monitoring her blood sugars more regularly. She said she just got diagnosed so that may be coming.. . Orders: Orders CT NG by PCR Today Z11.3 - Encounter for screening for infections with a predominantly sexual mode of transmission Bacterial Vaginosis Panel Today Z11.3 - Encounter for screening for infections with a predominantly sexual mode of transmission Coding Level of Care Code Est Pt Prev Care 40-64y([id number]) Diagnoses Screen for sexually transmitted diseases Z11.3 Family history of breast cancer in first degree relative Z80.3 Cervical cancer screening Z12.4 Well woman exam with routine gynecological exam Z01.419 custodial (current) use of anticoagulants Z79.01 Type 2 diabetes mellitus with hyperglycemia, without long-term current use of insulin E11.65 Diabetes mellitus type: type 2 Diabetes mellitus ferry terminal supervisor insulin use: without ferry terminal supervisor use Diabetes mellitus complication status: with hyperglycemia
== END 2023-08-11 12:13 | disposition home or self-care (01) ==
LOC: HO.HWSM 11:25
PROVIDERS: PCP Internal Medicine; Visit Provider Advanced Practice Midwife
DX: Z01.419 Encounter for gynecological examination (general) (routine) without abnormal findings (principal); Z11.3 Encounter for screening for infections with a predominantly sexual mode of transmission; Z80.3 Family history of malignant neoplasm of breast; Z12.4 Encounter for screening for malignant neoplasm of cervix; Z79.01 Long term (current) use of anticoagulants; E11.65 Type 2 diabetes mellitus with hyperglycemia
CPT/HCPCS: 99396

== ENCOUNTER 2023-09-12 06:58 | Outpatient (REF) | payer OTHER, SELFPAY ==
[2023-09-12 07:10] LABS: MANUAL DIFF FLAG NO
[2023-09-12 08:10] LABS: Basophils Percent Auto 0.5 % (0-2); Eosinophils Absolute Auto 0.2 X10*3/uL (0.0-0.4); Eosinophils Percent Auto 2.6 % (0-4); Hematocrit 38.6 % (37.0-47.0); Hemoglobin 12.1 g/dl (12.0-16.0); Imm Gran Abs Auto 0.03 X10*3/uL (0.00-0.03); Imm Gran Pct Auto 0.5 % (0.0-0.4); Lymphocytes Absolute Auto 2.5 X10*3/uL (1.2-4.9); Lymphocytes Percent Auto 38.2 % (20-40); Mean Corpuscular HGB Conc 31.3 g/dl (31.0-35.0); Mean Corpuscular Hemoglobin 25.5 pg (27.0-33.0); Mean Corpuscular Volume 81.3 fL (80.0-98.0); Mean Platelet Volume 9.4 fL (9.4-12.3); Monocytes Absolute Auto 0.5 X10*3/uL (0.1-1.2); Neutrophils Absolute Auto 3.3 x10*3/uL (2.0-8.3); Neutrophils Percent Auto 51.2 % (45-73); Platelet Count 306 X10*3/uL (160-400); Red Blood Count 4.75 X10*6/uL (4.20-5.50); Red Cell Distribution Width 14.6 % (11.0-16.0); White Blood Count 6.5 X10*3/uL (4.8-10.8)
[2023-09-12 08:20] LABS: Estimated Average Glucose 143 mg/dL; Hemoglobin A1c % 6.6 % (<6.0)
[2023-09-12 08:24] LABS: Appearance Urine Clear; Color Urine Yellow; Glucose Urine UA Negative (Negative); Leukocyte Esterase Urine Negative (Negative); Nitrite Urine Negative (Negative); Urine Blood Negative (Negative); Urine Ketones Negative (Negative); Urine Protein Negative (Neg-Trace)
[2023-09-12 08:39] LABS: Microalbum/Creatinine Ratio Ur 15.4 ug/mg cr (<30)
[2023-09-12 09:03] LABS: Alanine Aminotransferase 54 U/L (0-31); Alkaline Phosphatase 87 U/L (39-117); Anion Gap 11 (12-20); Aspartate Amino Transferase 43 U/L (5-31); Bilirubin Total 0.7 mg/dL (0.0-1.0); Blood Urea Nitrogen 11 mg/dL (9-16); Calcium 9.3 mg/dL (8.4-10.2); Carbon Dioxide 28 mmol/L (22-29); Chloride 107 mmol/L (96-108); Cholesterol 149 mg/dL (<200); Estimated Glomerular Filt Rate > 60; Glucose Fasting 132 mg/dL (60-99); HDL Cholesterol 30 mg/dL (>40); LDL Cholesterol Calculated 88 mg/dL (<100); Potassium 4.3 mmol/L (3.3-5.1); Sodium 142 mmol/L (135-145); Total Protein 7.5 g/dL (6.5-8.0); Triglycerides 158 mg/dL (<150)
[2023-09-12 09:13] LABS: Free T4 (Free Thyroxine) 0.93 ng/dL (0.71-1.85); Thyroid Stimulating Hormone 4.84 uIU/mL (0.32-4.0); Vitamin D 25-OH Total 17.7 ng/mL (>30)
== END 2023-09-12 06:59 | disposition home or self-care (01) ==
LOC: HO.LAB 06:58
PROVIDERS: PCP Internal Medicine; Visit Provider Internal Medicine
DX: E03.9 Hypothyroidism, unspecified (principal); E11.9 Type 2 diabetes mellitus without complications; E55.9 Vitamin D deficiency, unspecified; E78.00 Pure hypercholesterolemia, unspecified; R30.0 Dysuria; I10 Essential (primary) hypertension
CPT/HCPCS: 36415; 80053; 80061; 81003; 82043; 82306; 82570; 83036; 84439; 84443; 85025

== ENCOUNTER 2023-09-15 08:46 | Outpatient (AMB) | payer OTHER, SELFPAY ==
[2023-09-15 08:49] VITALS: BP 138/92; PULSE 83; O2SAT 97; BMI 36.8
--- NOTE | 2023-09-15 08:49 | MHC.PC.OV ---
Vital Signs 09/15/23 08:49 09/15/23 09:28 Height 5 ft 6 in Weight 228 lb 0.8 oz BMI 36.8 BP 138/92 H 130/90 H Blood Pressure Location Lt brachial Lt brachial Position Sitting Sitting Pulse 83 Pulse Source Pulse Oximeter Pulse Oximetry (%) 97 Oxygen Delivery Method Room Air Intake Visit Reasons: DM,hyperlipidemia,HTN, elevatedLFTs,hypothyroidism Client Services Coordinator Required: No Allergies No Known Allergies Allergy (Verified 09/15/23 09:17) Medication List - Last Reconciled 09/15/23 by Nik Hunt MD albuterol sulfate 90 mcg/actuation (Ventolin HFA) 1 inh inhalation QID PRN apixaban (Eliquis) 5 mg PO BID 90 days cholecalciferol (vitamin D3) 100 mcg (2 x 50 mcg (2,000 unit)) PO DAILY 90 days clotrimazole-betamethasone 1-0.05 % 1 appl topical BID 2 weeks cyclobenzaprine 10 mg PO TID PRN 10 days doxepin 10 mg PO BEDTIME gabapentin 600 mg PO TID 30 days hydroxyzine HCl 25 mg PO TID PRN 30 days levothyroxine 75 mcg PO DAILY 30 days lisinopril 5 mg PO DAILY 30 days mecobalamin (vitamin B12) 1,000 mcg sublingual DAILY 90 days metformin ER 500 mg PO QPM 30 days mupirocin 2% 1 appl topical TID omeprazole 20 mg PO DAILY ropinirole 1 mg PO BEDTIME 30 days sertraline 100 mg PO DAILY Tobacco use date assessed: 09/15/23 HPI DM,hyperlipidemia,HTN, elevatedLFTs,hypothyroidism HPI Details Patient comes in today for her follow up visit States that she feels okay except for some pain over one of her right lower molars for the past couple of days Has also noticed some swelling over her right lower jaw corresponding to the area where her painful tooth is States that she has been applying some Orajel over her painful tooth for the past couple of days with some relief States that she currently does not have a dentist She denies any fever but reports (+) on and off headaches recently; denies any dizziness Denies any chest pains, no SOB No nausea/vomiting, no abdominal pain No change in bowel habits noted Had her follow up labs done a few days ago - to discuss her results FOR[facility]LY [facility] Medical History Diabetes mellitus Acquired hypothyroidism Benign essential hypertension Pain and swelling of right lower extremity Obesity (BMI 30-39.9) Anxiety GERD (gastroesophageal reflux disease) Restless leg syndrome Impaired fasting glucose Stasis edema of both lower extremities Vitamin D deficiency Vitamin B12 deficiency Peripheral neuropathy Lumbar degenerative disc disease Dyslipidemia Hypercoagulable state Hx of deep venous thrombosis Surgical History Hx of endoscopy Hx of colonoscopy History of endometrial ablation History of eye surgery History of surgery History of tubal ligation History of section Family History Father Colon cancer Mother Diabetes Breast cancer Sister Colon cancer Social History Household Members: None Housing: Apartment Are you a primary landcare officer to a significant other at home: No Do you presently have visiting nurse or other home services: No Alcohol intake: current Alcohol intake frequency: holidays/special occasions only Patient Tobacco Use Status: Never used Tobacco e-Cigarette/Vaping Use: Never Used Second Hand Smoke Exposure: Yes service: No Current occupational status: employed 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 1. Little interest or pleasure in doing things: several days 2. Feeling down, depressed, or hopeless: several days 3. Trouble falling or staying asleep, or sleeping too much: several days 4. Feeling tired or having little energy: several days 5. Poor appetite or overeating: several days 6. Feeling bad about yourself - or that you are a failure or have let yourself or your family down: several days 7. Trouble concentrating on things, such as reading the newspaper or watching television: several days 8. Moving or speaking so slowly that other people could have noticed. Or the opposite - being so fidgety or restless that you have been moving around a lot more than usual: several days 9. Thoughts that you would be better off or of hurting yourself in some way: several days Total score: 9 Depression Screening Interpretation: Positive Depression Screening Follow-up: Existing condition and In treatment Depression Screening Done: Yes [id number] - PHQ-9 Billing: Yes Source: Developed by Drs. Mahendra Jimenez, Lauren Stein, Jose Luis Shah and colleagues, with an educational kaden from [facility]. Thrive Questionnaire Date Thrive assessed: 09/15/23 I am a: Patient What is your living situation today?: I have a steady place to live Within the past 12 months, did the food you bought not last and you didn't have the money to get more?: Never true Within the past 12 months, did you worry whether your food would run out before you got money to buy more?: Never true Do you have trouble paying for medicines?: No Do you have trouble getting transportation to medical appointments?: No Do you have trouble paying your heating and electricity bill?: No Do you have trouble taking care of your child, family member or friend?: No Do you have trouble with day-to-day activities such as bathing, preparing meals, shopping, managing finances, etc.?: No Are you currently unemployed and looking for a job?: No Are you interested in more education?: No Please select the resources that you would like help with: None Currently or been in a relationship where the following occur: no concerns reported THRIVE Score: 0 AUDIT C Alcohol Use Questionnaire (AUDIT-C) 1. How often do you have a drink containing alcohol?: Never 3. How often do you have six or more drinks on one occasion?: Never Total Score: 0 Score Reviewed/Action Taken: Yes TONO-7 AMB Questionnaire TONO-7 Date TONO - 7 assessed: 09/15/23 Source: Developed by Drs. Mahendra Jimenez, Lauren Stein, Jose Luis Shah and colleagues, with an educational kaden from [facility]. Review of Systems Const Denies chills, Reports difficulty sleeping (due to her RLS), Reports fatigue, Denies fever(s) and Reports headache(s) (on and off lately) ENT Reports dental pain (see HPI), Denies dysphagia, Denies dizziness, Denies otalgia, Reports headache(s) (on and off lately), Denies neck pain, Denies odynophagia and Denies sore throat Card Denies chest pain, Denies rapid heart rate, Denies irregular heart rhythm, Denies palpitations and Denies dyspnea Resp Denies cough, Denies dyspnea and Denies wheezing GI Denies abdominal pain, Denies constipation, Denies dysphagia, Denies heartburn, Denies diarrhea, Denies nausea, Denies odynophagia and Denies vomiting Denies hematuria, Denies urinary frequency, Denies dysuria, Denies urinary incontinence and Denies urinary urgency Musc Details: recurrent swelling of both legs and feet lately Reports back pain (over the lower back - chronic), Denies arthralgias and Denies neck pain Skin/Breast Denies rash Neuro Denies dizziness, Reports headache(s) (on and off lately), Reports restless legs (increased lately) and Denies paresthesias Psych Denies anxiety Endo Reports fatigue and Denies palpitations Ernesto/Lymph Denies easy bruising Aller/Immun Denies wheezing Physical exam (Primary Care) Vital Signs: Last Vital Signs Pulse 83 09/15/23 08:49 BP 138/92 H 09/15/23 08:49 Pulse Ox 97 09/15/23 08:49 Oxygen Delivery Method Room Air 09/15/23 08:49 BMI result Body Mass Index 36.8 Tobacco/Smoking Status: Tobacco use Status Tobacco use date assessed 09/15/23 09/15/23 08:54 Patient Tobacco Use Status Never used Tobacco 09/15/23 08:54 e-Cigarette/Vaping Use Never Used 09/15/23 08:54 Depression Screening Interpretation: Positive Depression Screening Follow-up: Existing condition and In treatment Thrive Assessment: Date of Thrive Assessment Date Thrive assessed 09/15/23 09/15/23 08:54 Currently or been in a relationship where the following occur: no concerns reported Const General: no acute distress and alert HENMT Ears: TM's normal bilaterally and EAC's normal Throat: Yes posterior oropharynx normal and Yes tonsils normal (no TP congestion) Neck Neck: Yes no lymphadenopathy and Yes supple Thyroid: Thyroid normal Resp Auscultation: clear to auscultation bilaterally, no rales and no wheezes Cardio Rate: regular rate Rhythm: regular rhythm Heart sounds: no murmurs GI Palpation (GI): Soft to palpation and nontender Auscultation: normal bowel sounds General: Yes no CVA tenderness Back/Spine/Pelvis Back: no CVA tenderness Thoracic/Lumbar Spine: lumbar spinal tenderness Skin Rashes: no rashes Extrem General: Yes no clubbing, cyanosis or edema Results Reviewed Results Reviewed: Laboratory Tests 09/12/23 09/12/23 09/12/23 07:05 07:05 07:08 WBC 6.5 Hgb 12.1 Hct 38.6 Plt Count 306 Sodium 142 Potassium 4.3 Creatinine 0.72 Estimated GFR > 60 Fasting Glucose 132 H Hemoglobin A1c % 6.6 H Calcium 9.3 AST 43 H ALT 54 H Triglycerides 158 H Cholesterol 149 LDL Cholesterol, Calc 88 HDL Cholesterol 30 L 25-OH Vitamin D Total 17.7 L TSH 4.84 H Free T4 Ur Specific [place] 1.020 Urine Protein Negative Urine Glucose (UA) Negative Urine Blood Negative Urine Nitrite Negative Ur Leukocyte Esterase Negative Microalb/Creat Ratio 15.4 09/12/23 07:08 WBC Hgb Hct Plt Count Sodium Potassium Creatinine Estimated GFR Fasting Glucose Hemoglobin A1c % Calcium AST ALT Triglycerides Cholesterol LDL Cholesterol, Calc HDL Cholesterol 25-OH Vitamin D Total TSH Free T4 0.93 Ur Specific [place] Urine Protein Urine Glucose (UA) Urine Blood Urine Nitrite Ur Leukocyte Esterase Microalb/Creat Ratio Assessment and Plan Assessment & Plan (1) Diabetes mellitus: Code(s): E11.9 - Type 2 diabetes mellitus without complications Qualifiers: Diabetes mellitus type: type 2 Diabetes mellitus watermelon harvesting supervisor insulin use: without senior care use Diabetes mellitus complication status: with hyperglycemia Qualified Code(s): E11.65 - Type 2 diabetes mellitus with hyperglycemia Plan: Her HgbA1c has improved to 6.6% on her labs done a few days ago (was at 7.2% a few months ago) - goal is <7.0% Reinforced diabetic diet Continue Metformin ER 500 mg Q PM (2) Benign essential hypertension: Code(s): I10 - Essential (primary) hypertension Plan: Reinforced low sodium diet - goal is systolic BP of 120 mm or less She was on Lisinopril 5 mg QD in the past but now admits that she has NOT had her Lisinopril Rx refilled in a while now - states that she keeps forgetting to ask about it Will START her BACK on Lisinopril 5 mg QD - Rx refill sent Patient is reminded to continue monitoring her BP regularly (3) Dyslipidemia: Code(s): E78.5 - Hyperlipidemia, unspecified Plan: Results of her labs done a few days ago reviewed and discussed with patient Reinforced low cholesterol diet Will again hold off on starting patient on statins as her LFTs remain elevated; her cholesterol levels are actually acceptable and are at or close to goal Will recheck her labs and fasting lipids in 3 months for follow up (4) Hypercoagulable state: Comment: 1st DVT in 2004 after back surgery; 2nd DVT in 2012 - unprovoked; on Xarelto since 2012; had R femoral DVT in 01/2021 - Rx switched to Eliquis Code(s): 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 Holt) as scheduled (5) Lumbar degenerative disc disease: Code(s): M51.36 - Other intervertebral disc degeneration, lumbar region Plan: Reinforced activity and weight-lifting restrictions Continue Cyclobenzaprine 10 mg 3 times a day as needed, Gabapentin 300 mg 2 capsule 3 times a day and Tapentadol 50 mg every 6-8 hours as needed for increased pain (6) Peripheral neuropathy: Code(s): G62.9 - Polyneuropathy, unspecified Qualifiers: Peripheral neuropathy type: polyneuropathy, unspecified Qualified Code(s): G62.9 - Polyneuropathy, unspecified Plan: States that Gabapentin is helping with her symptoms Follow up with neurology (Dr. sEquivel) as scheduled (7) Acquired hypothyroidism: Code(s): E03.9 - Hypothyroidism, unspecified Plan: Serum TSH is still elevated and free T4 is still low on her recent labs despite having her Levothyroxine dosage increased to 75 mcg QD previously Will increase her Levothyroxine again to 88 mcg QD Will recheck her TFTs in 3 months for follow up (8) Vitamin B12 deficiency: Code(s): E53.8 - Deficiency of other specified B group vitamins Plan: Continue Vitamin B12 1000 mg QD (9) Vitamin D deficiency: Code(s): E55.9 - Vitamin D deficiency, unspecified Plan: Cautioned that her Vitamin D level has again declined slightly from previous on her recent labs Continue Vitamin D3 at 4000 units QD for now (10) GERD (gastroesophageal reflux disease): Comment: EGD-biopsies no H pylori, continue omeprazole 20 mg daily Code(s): K21.9 - Gastro-esophageal reflux disease without esophagitis Qualifiers: Esophagitis presence: without esophagitis Qualified Code(s): K21.9 - Gastro-esophageal reflux disease without esophagitis Plan: Dietary restrictions reinforced Continue Omeprazole 20 mg QD (11) Restless leg syndrome: Code(s): G25.81 - Restless legs syndrome Plan: Continue Ropinirole 1 mg Q HS (12) Varicose veins of right lower extremity with inflammation: Comment: 04/12/2022 - right small saphenous vein radiofrequency ablation Code(s): I83.11 - Varicose veins of right lower extremity with inflammation Plan: Follow up with vascular surgery as scheduled Advised that this is most likely the reason for her recent lower extremity edema and she can try wearing compression stockings and also try to keep her legs elevated as often as she can throughout the day to help manage her edema better (13) Calcaneal spur of both feet: Code(s): M77.31 - Calcaneal spur, right foot; M77.32 - Calcaneal spur, left foot Plan: X-rays of both feet done in 03/2021 revealed (+) bilateral calcaneal spurs She has received cortisone injections from podiatry previously, which she states have not really helped Follow up with podiatry as scheduled (14) Tinea corporis: Code(s): B35.4 - Tinea corporis Plan: Continue Lotrisone cream BID PRN (15) Pain, dental: Code(s): K08.89 - Other specified disorders of teeth and supporting structures Plan: Patient is advised to check with her insurance [facility] to see which dentist they have on staff and that she should contact the dental office immediately and schedule an urgent appt as I suspect that her dental pain may be due to either a tooth infection or tooth impaction and should be addressed JEREMIAH (16) Anxiety: Code(s): F41.9 - Anxiety disorder, unspecified Plan: Continue Sertraline 100 mg QD and Doxepin 10 mg Q HS Follow up with psychiatry as scheduled (17) Obesity (BMI 30-39.9): Code(s): E66.9 - Obesity, unspecified Plan: Reinforced diet/exercise as tolerated/lose weight Plan Follow up in 3 months Orders: Orders Complete Blood Count Auto Diff 3 Months D64.9 - Anemia, unspecified Comprehensive [place]. Panel Fast 3 Months E78.00 - Pure hypercholesterolemia, unspecified Free T4 (Free Thyroxine) 3 Months E03.9 - Hypothyroidism, unspecified Microalbumin, Random (w Creat) 3 Months E11.9 - Type 2 diabetes mellitus without complications Hemoglobin A1c 3 Months E11.9 - Type 2 diabetes mellitus without complications Lipid Panel 3 Months E78.00 - Pure hypercholesterolemia, unspecified Thyroid Stimulating Hormone 3 Months E03.9 - Hypothyroidism, unspecified UA CC w/rflx Micro + Cult 3 Months R30.0 - Dysuria Vitamin D 25-OH Total 3 Months E55.9 - Vitamin D deficiency, unspecified Medications: Changed From levothyroxine Take on an empty stomach, first thing in the morning, with water. Do not eat or drink anything else for 30 minutes afterwards 75 mcg PO DAILY 30 days 30 tabs 3RF E03.9 - Hypothyroidism, unspecified To levothyroxine Take on an empty stomach, first thing in the morning, with water. 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 insulin use: without watermelon harvesting supervisor use Diabetes mellitus complication status: with hyperglycemia Benign essential hypertension I10 Dyslipidemia E78.5 Hypercoagulable state D68.59 Lumbar degenerative disc disease M51.36 Peripheral polyneuropathy G62.9 Peripheral neuropathy type: polyneuropathy, unspecified Acquired hypothyroidism E03.9 Vitamin B12 deficiency E53.8 Vitamin D deficiency E55.9 Gastroesophageal reflux disease without esophagitis K21.9 Esophagitis presence: without esophagitis Restless leg syndrome G25.81 Varicose veins of right lower extremity with inflammation I83.11 Calcaneal spur of both feet M77.31; M77.32 Tinea corporis B35.4 Pain, dental K08.89 Anxiety F41.9 Obesity (BMI 30-39.9) E66.9
[2023-09-15 09:28] VITALS: BP 130/90
== END 2023-09-15 09:34 | disposition home or self-care (01) ==
PROVIDERS: PCP Internal Medicine; Visit Provider Internal Medicine
DX: E11.65 Type 2 diabetes mellitus with hyperglycemia (principal); I10 Essential (primary) hypertension; E78.5 Hyperlipidemia, unspecified; D68.59 Other primary thrombophilia; M51.36 Other intervertebral disc degeneration, lumbar region; G62.9 Polyneuropathy, unspecified; E03.9 Hypothyroidism, unspecified; E53.8 Deficiency of other specified B group vitamins; E55.9 Vitamin D deficiency, unspecified; K21.9 Gastro-esophageal reflux disease without esophagitis; G25.81 Restless legs syndrome; I83.11 Varicose veins of right lower extremity with inflammation
CPT/HCPCS: 99214

== ENCOUNTER 2023-11-04 12:47 | Outpatient (AMB) | payer OTHER, SELFPAY ==
[2023-11-04 12:51] VITALS: BP 130/80; PULSE 94; TEMP 36.6; O2SAT 97; BMI 37.6
--- NOTE | 2023-11-04 12:51 | AM.OFFWIN_ITS ---
Intake Vital Signs 11/04/23 12:51 Height 5 ft 6 in Weight 233 lb BMI 37.6 BP 130/80 Blood Pressure Location Lt brachial Position Sitting Pulse 94 Pulse Source Pulse Oximeter Temp 97.8 F Temp Source Temporal Artery Scan Pulse Oximetry (%) 97 Oxygen Delivery Method Room Air Intake Visit Reasons: EP ?UTI Intake Note: pt is here today for UTI started friday Patient Tobacco Use Status: Never used Tobacco Allergies No Known Allergies Allergy (Verified 11/04/23 13:04) Do you need a note to return to daycare/school/sports/work: Yes HPI HPI Comments History of Present Illness Details 52-year-old female presents today with d ysuria urgency frequency x3 days. PFSH Medical History Diabetes mellitus Acquired hypothyroidism Benign essential hypertension Pain and swelling of right lower extremity Obesity (BMI 30-39.9) Anxiety GERD (gastroesophageal reflux disease) Restless leg syndrome Impaired fasting glucose Stasis edema of both lower extremities Vitamin D deficiency Vitamin B12 deficiency Peripheral neuropathy Lumbar degenerative disc disease Dyslipidemia Hypercoagulable state Hx of deep venous thrombosis Surgical History Hx of endoscopy Hx of colonoscopy History of endometrial ablation History of eye surgery History of surgery History of tubal ligation History of section Family History Father Colon cancer Mother Diabetes Breast cancer Sister Colon cancer Social History Household Members: None Housing: Apartment Are you a primary wound care center consultant to a significant other at home: No Do you presently have visiting nurse or other home services: No Alcohol intake: current Alcohol intake frequency: holidays/special occasions only Patient Tobacco Use Status: Never used Tobacco e-Cigarette/Vaping Use: Never Used Second Hand Smoke Exposure: Yes service: No Current occupational status: employed 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 Cognitive needs: No Hearing needs: No Vision needs: Yes (Reading glasses) Female Reproductive History Menstrual Age of Menarche: 13 Review of Systems Const All systems reviewed & are unremarkable except as noted in HPI and below Eyes Reports no additional complaints ENT Reports no additional complaints Card Reports no additional complaints Resp Reports no additional complaints GI Reports no additional complaints Reports urinary frequency, Reports difficulty voiding, Reports dysuria and Reports urinary urgency Physical Exam Vital Signs: Last Vital Signs Temp 97.8 F 11/04/23 12:51 Pulse 94 11/04/23 12:51 BP 130/80 11/04/23 12:51 Pulse Ox 97 11/04/23 12:51 Oxygen Delivery Method Room Air 11/04/23 12:51 BMI result Body Mass Index 37.6 Const General: healthy appearing and no acute distress HEENT Head: Yes normal to inspection, Yes normocephalic and Yes atraumatic Ears: hearing grossly normal bilaterally General nose exam: Normal external nose present Face and sinus: Yes normal facial exam Eyes General: appearance normal, both eyes and all related structures Results AMB Urinalysis, Automated UA Leukoctes 125 Kenneth/uL Last Edit by Annmarie Abbott MA on 11/04/23 13:33 UA Nitrite Negative Last Edit by Annmarie Abbott MA on 11/04/23 13:33 UA Urobilinogen 0.2 mg/dL Last Edit by Annmarie Abbott MA on 11/04/23 13:33 UA Protein 30 mg/dL Last Edit by Annmarie Abbott MA on 11/04/23 13:33 UA pH 6.0 Last Edit by Annmarie Abbott MA on 11/04/23 13:33 UA Blood 200 Porfirio/uL Last Edit by Annmarie Abbott MA on 11/04/23 13:33 UA Specific [place] 1.025 Last Edit by Annmarie Abbott MA on 11/04/23 13:33 UA Ketone Negative Last Edit by Annmarie Abbott MA on 11/04/23 13:33 UA Bilirubin 0 mg/dL Last Edit by Annmarie Abbott MA on 11/04/23 13:33 UA Glucose 0 mg/dL Last Edit by Annmarie Abbott MA on 11/04/23 13:33 Results Reviewed Results Reviewed: Laboratory Last Values Urine pH (Auto) 6.0 11/04/23 13:32 Specific [place] (Auto) 1.025 11/04/23 13:32 Urine Protein (Auto) 30 mg/dL 11/04/23 13:32 Glucose (UA)(Auto) 0 mg/dL 11/04/23 13:32 Urine Ketones (Auto) Negative 11/04/23 13:32 Urine Blood (Auto) 200 Porfirio/uL 11/04/23 13:32 Urine Nitrite (Auto) Negative 11/04/23 13:32 Urine Bilirubin (Auto) 0 mg/dL 11/04/23 13:32 Urine Urobilinogen (Auto) 0.2 mg/dL 11/04/23 13:32 Leukocyte Esterase (Auto) 125 Kenneth/uL 11/04/23 13:32 Results of the urinalysis was reviewed with the patient Assessment & Plan Assessment & Plan (1) UTI (urinary tract infection): Code(s): N39.0 - Urinary tract infection, site not specified Plan Antibiotics was ordered for the infection and Pyridium for her discomfort Medications: New cephalexin 500 mg PO BID 14 caps 0RF 7 days phenazopyridine (Pyridium) 100 mg PO TID PRN 10 tabs 0RF pain Coding Level of Care Code Est Pt Level 3 (53250) Diagnoses UTI (urinary tract infection) N39.0
== END 2023-11-04 13:11 | disposition home or self-care (01) ==
PROVIDERS: PCP Internal Medicine; Visit Provider Physician Assistant Medical
DX: N39.0 Urinary tract infection, site not specified (principal)
CPT/HCPCS: 99213

== ENCOUNTER 2023-11-15 10:18 | Outpatient (REF) | payer OTHER, SELFPAY ==
--- NOTE | ~2023-11-15 | MM_ITS ---
EXAMINATION: MM SCREENING DIGITAL BREAST TOMOSYNTHESIS, BILATERAL CLINICAL INFORMATION: Screening. Asymptomatic. COMPARISON: Mammography: This study is compared with prior exams dating back to 2018. TECHNIQUE: Digital breast tomosynthesis is performed in both the craniocaudal and mediolateral oblique views along with computer-aided detection (CAD). Synthesized 2D images are generated from the tomosynthesis. FINDINGS: There are scattered areas of fibroglandular density (ACR BI-RADS breast composition Category b). There are no significant masses, abnormal calcifications, or other abnormalities. Few, bilateral benign calcifications are present in each breast. MM/MM tomosynthesis screening BI IMPRESSION: No mammographic evidence of malignancy. ASSESSMENT: BI-RADS BI-RADS 2 - Benign Findings RECOMMENDATION: Routine annual mammography screening. 1 year F/U This examination should not preclude the clinical evaluation of a suspicious palpable abnormality. This patient's information was entered into a reminder system with a target due date for their next mammogram.
== END 2023-11-15 10:19 | disposition home or self-care (01) ==
LOC: HO.MAMMO 10:18
PROVIDERS: PCP Internal Medicine; Visit Provider Internal Medicine
DX: Z12.31 Encounter for screening mammogram for malignant neoplasm of breast (principal)
CPT/HCPCS: 77063; 77067

== ENCOUNTER → 2023-11-15 10:30 | Outpatient (BNV) | payer OTHER, SELFPAY | PROVIDERS: PCP Internal Medicine; Visit Provider Radiology Diagnostic Radiology | DX: Z12.31 Encounter for screening mammogram for malignant neoplasm of breast (principal) | CPT/HCPCS: 77063; 77067 ==

== ENCOUNTER 2023-12-17 07:23 | Outpatient (REF) | payer OTHER, SELFPAY ==
[2023-12-17 07:33] LABS: MANUAL DIFF FLAG NO
[2023-12-17 08:21] LABS: Basophils Percent Auto 0.5 % (0-2); Eosinophils Absolute Auto 0.2 X10*3/uL (0.0-0.4); Eosinophils Percent Auto 3.3 % (0-4); Hematocrit 38.2 % (37.0-47.0); Hemoglobin 12.1 g/dl (12.0-16.0); Imm Gran Abs Auto 0.01 X10*3/uL (0.00-0.03); Imm Gran Pct Auto 0.2 % (0.0-0.4); Lymphocytes Absolute Auto 2.5 X10*3/uL (1.2-4.9); Lymphocytes Percent Auto 39.2 % (20-40); Mean Corpuscular HGB Conc 31.7 g/dl (31.0-35.0); Mean Corpuscular Hemoglobin 25.9 pg (27.0-33.0); Mean Corpuscular Volume 81.8 fL (80.0-98.0); Mean Platelet Volume 9.3 fL (9.4-12.3); Monocytes Absolute Auto 0.5 X10*3/uL (0.1-1.2); Monocytes Percent Auto 7.1 % (2-11); Neutrophils Absolute Auto 3.2 x10*3/uL (2.0-8.3); Neutrophils Percent Auto 49.7 % (45-73); Platelet Count 310 X10*3/uL (160-400); Red Blood Count 4.67 X10*6/uL (4.20-5.50); Red Cell Distribution Width 14.4 % (11.0-16.0); White Blood Count 6.4 X10*3/uL (4.8-10.8)
[2023-12-17 08:26] LABS: Estimated Average Glucose 148 mg/dL; Hemoglobin A1c % 6.8 % (<6.0)
[2023-12-17 08:52] LABS: Appearance Urine Cloudy; Color Urine Yellow; Glucose Urine UA Negative (Negative); Leukocyte Esterase Urine Trace (Negative); Nitrite Urine Negative (Negative); Specific Gravity - Urine 1.015 (1.005-1.025); UMIC TRIGGER UACC YES; Urine Blood Negative (Negative); Urine Ketones Negative (Negative); Urine Protein Negative (Neg-Trace)
[2023-12-17 08:55] LABS: Bacteria Urine Trace (None Seen); Hyaline Casts Urine 0-2 /LPF (0-2); RBC Urine 0-2 /HPF (0-2); WBC Urine 0-5 /HPF (0-5)
[2023-12-17 08:59] LABS: Alanine Aminotransferase 43 U/L (0-31); Albumin Level 4.1 g/dL (3.5-5.0); Alkaline Phosphatase 81 U/L (39-117); Anion Gap 10 (12-20); Aspartate Amino Transferase 47 U/L (5-31); Bilirubin Total 0.9 mg/dL (0.0-1.0); Blood Urea Nitrogen 15 mg/dL (9-16); Calcium 9.3 mg/dL (8.4-10.2); Carbon Dioxide 29 mmol/L (22-29); Chloride 104 mmol/L (96-108); Cholesterol 158 mg/dL (<200); Estimated Glomerular Filt Rate > 60; Glucose Fasting 128 mg/dL (60-99); HDL Cholesterol 34 mg/dL (>40); LDL Cholesterol Calculated 95 mg/dL (<100); Potassium 4.1 mmol/L (3.3-5.1); Sodium 139 mmol/L (135-145); Total Protein 7.7 g/dL (6.5-8.0); Triglycerides 148 mg/dL (<150)
[2023-12-17 09:21] LABS: Free T4 (Free Thyroxine) 0.99 ng/dL (0.71-1.85); Thyroid Stimulating Hormone 3.46 uIU/mL (0.32-4.0); Vitamin D 25-OH Total 18.6 ng/mL (>30)
[2023-12-17 09:22] LABS: Microalbum/Creatinine Ratio Ur 12.8 ug/mg cr (<30)
== END 2023-12-17 07:24 | disposition home or self-care (01) ==
LOC: HO.LAB 07:23
PROVIDERS: PCP Internal Medicine; Visit Provider Internal Medicine
DX: D64.9 Anemia, unspecified (principal); E03.9 Hypothyroidism, unspecified; E11.9 Type 2 diabetes mellitus without complications; E78.00 Pure hypercholesterolemia, unspecified; E55.9 Vitamin D deficiency, unspecified
CPT/HCPCS: 36415; 80053; 80061; 81001; 82043; 82306; 82570; 83036; 84439; 84443; 85025

== ENCOUNTER 2023-12-17 16:17 | Outpatient (AMB) | payer OTHER, SELFPAY ==
[2023-12-17 16:19] VITALS: BP 140/82; PULSE 81; O2SAT 98; BMI 37.4
--- NOTE | 2023-12-17 16:19 | MHC.PC.OV ---
Vital Signs 12/17/23 16:19 Height 5 ft 6 in Weight 232 lb BMI 37.4 BP 140/82 H Blood Pressure Location Lt brachial Position Sitting Pulse 81 Pulse Source Pulse Oximeter Pulse Oximetry (%) 98 Oxygen Delivery Method Room Air Intake Visit Reasons: DM, HTN, hyperlipidemia, hypothyroidism Dietitian Teaching Required: No Allergies No Known Allergies Allergy (Verified 12/17/23 16:40) Medication List - Last Reconciled 12/17/23 by Nik Hunt MD albuterol sulfate 90 mcg/actuation (Ventolin HFA) 1 inh inhalation QID PRN apixaban (Eliquis) 5 mg PO BID 90 days cholecalciferol (vitamin D3) 100 mcg (2 x 50 mcg (2,000 unit)) PO DAILY 90 days clotrimazole-betamethasone 1-0.05 % 1 appl topical BID 2 weeks cyclobenzaprine 10 mg PO TID PRN 10 days doxepin 10 mg PO BEDTIME gabapentin 600 mg PO TID 30 days hydroxyzine HCl 25 mg PO TID PRN 30 days levothyroxine 88 mcg PO DAILY 30 days lisinopril 5 mg PO DAILY 90 days mecobalamin (vitamin B12) 1,000 mcg sublingual DAILY 90 days metformin ER 500 mg PO QPM 30 days mupirocin 2% 1 appl topical TID omeprazole 20 mg PO DAILY phenazopyridine (Pyridium) 100 mg PO TID PRN ropinirole 1 mg PO BEDTIME 30 days sertraline 100 mg PO DAILY Tobacco use date assessed: 12/17/23 Dental Screening Dental Screen Date: 06/16/23 HPI DM, HTN, hyperlipidemia, hypothyroidism HPI Details Patient comes in today for her follow up visit States that she feels okay She denies any dizziness but still has on and off headaches lately Denies any chest pains, no SOB No nausea/vomiting, no abdominal pain No change in bowel habits noted Had her follow up labs done earlier today - to discuss her results [facility] Medical History (Updated 12/18/23 @ 03:42 by Nik Hunt MD) Insomnia Diabetes mellitus Acquired hypothyroidism Benign essential hypertension Pain and swelling of right lower extremity Obesity (BMI 30-39.9) Anxiety GERD (gastroesophageal reflux disease) Restless leg syndrome Impaired fasting glucose Stasis edema of both lower extremities Vitamin D deficiency Vitamin B12 deficiency Peripheral neuropathy Lumbar degenerative disc disease Dyslipidemia Hypercoagulable state Hx of deep venous thrombosis Surgical History Hx of endoscopy Hx of colonoscopy History of endometrial ablation History of eye surgery History of surgery History of tubal ligation History of section Family History Father Colon cancer Mother Diabetes Breast cancer Sister Colon cancer Social History Household Members: None Housing: Apartment Are you a primary pharmacist critical care to a significant other at home: No Do you presently have visiting nurse or other home services: No Alcohol intake: current Alcohol intake frequency: holidays/special occasions only Patient Tobacco Use Status: Never used Tobacco e-Cigarette/Vaping Use: Never Used Second Hand Smoke Exposure: Yes service: No Current occupational status: employed 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 How often do you have a drink containing alcohol?: Never 3. How often do you have six or more drinks on one occasion?: Never Total Score: 0 Score Reviewed/Action Taken: Yes TONO-7 AMB Questionnaire TONO-7 Date TONO - 7 assessed: 09/15/23 Source: Developed by Drs. Mahendra Jimenez, Lauren Stein, Jose Luis Shah and colleagues, with an educational kaden from [employer]. Review of Systems Const Denies chills, Reports difficulty sleeping, Reports fatigue, Denies fever(s) and Reports headache(s) (on and off lately) ENT Denies dysphagia, Denies dizziness, Denies otalgia, Reports headache(s) (on and off lately), Denies neck pain, Denies odynophagia and Denies sore throat Card Denies chest pain, Denies irregular heart rhythm, Denies palpitations and Denies dyspnea Resp Denies cough, Denies dyspnea and Denies wheezing GI Denies abdominal pain, Denies constipation, Denies dysphagia, Denies heartburn, Denies diarrhea, Denies nausea, Denies odynophagia and Denies vomiting Denies hematuria, Denies urinary frequency, Denies dysuria and Denies urinary urgency Musc Details: recurrent swelling of both legs and feet lately Reports back pain (over the lower back - chronic), Denies arthralgias and Denies neck pain Skin/Breast Denies rash Neuro Denies dizziness, Reports headache(s) (on and off lately), Reports restless legs (increased lately) and Denies paresthesias Psych Denies anxiety Endo Reports fatigue and Denies palpitations Ernesto/Lymph Denies easy bruising Aller/Immun Denies wheezing Physical exam (Primary Care) Vital Signs: Last Vital Signs Pulse 81 12/17/23 16:19 BP 140/82 H 12/17/23 16:19 Pulse Ox 98 12/17/23 16:19 Oxygen Delivery Method Room Air 12/17/23 16:19 BMI result Body Mass Index 37.4 Tobacco/Smoking Status: Tobacco use Status Tobacco use date assessed 12/17/23 12/17/23 16:24 Patient Tobacco Use Status Never used Tobacco 12/17/23 16:24 e-Cigarette/Vaping Use Never Used 12/17/23 16:24 Thrive Assessment: Date of Thrive Assessment Date Thrive assessed 09/15/23 12/17/23 16:24 Const General: no acute distress and alert HENMT Ears: TM's normal bilaterally and EAC's normal Throat: Yes posterior oropharynx normal and Yes tonsils normal (no TP congestion) Neck Neck: Yes no lymphadenopathy and Yes supple Thyroid: Thyroid normal Resp Auscultation: clear to auscultation bilaterally, no rales and no wheezes Cardio Rate: regular rate Rhythm: regular rhythm Heart sounds: no murmurs GI Palpation (GI): Soft to palpation and nontender Auscultation: normal bowel sounds General: Yes no CVA tenderness Back/Spine/Pelvis Back: no CVA tenderness Thoracic/Lumbar Spine: lumbar spinal tenderness Skin Rashes: no rashes Extrem General: Yes no clubbing, cyanosis or edema Results Reviewed Results Reviewed: Laboratory Tests 12/17/23 12/17/23 07:31 07:32 WBC 6.4 Hgb 12.1 Hct 38.2 Plt Count 310 Sodium 139 Potassium 4.1 Creatinine 0.75 Estimated GFR > 60 Fasting Glucose 128 H Hemoglobin A1c % 6.8 H Calcium 9.3 AST 47 H ALT 43 H Triglycerides 148 Cholesterol 158 LDL Cholesterol, Calc 95 HDL Cholesterol 34 L 25-OH Vitamin D Total 18.6 L TSH 3.46 Free T4 0.99 Ur Specific [place] 1.015 Urine Protein Negative Urine Glucose (UA) Negative Urine Blood Negative Urine Nitrite Negative Ur Leukocyte Esterase Trace H Microalb/Creat Ratio 12.8 Assessment and Plan Assessment & Plan (1) Diabetes mellitus: Code(s): E11.9 - Type 2 diabetes mellitus without complications Qualifiers: Diabetes mellitus complication status: with hyperglycemia Diabetes mellitus watermelon harvesting supervisor insulin use: without watermelon harvesting supervisor use Diabetes mellitus type: type 2 Qualified Code(s): E11.65 - Type 2 diabetes mellitus with hyperglycemia Plan: Her HgbA1c has increased slightly to 6.8% on her labs done earlier today (was at 6.6% a few months ago) - goal is <7.0% Reinforced diabetic diet Continue Metformin ER 500 mg Q PM (2) Benign essential hypertension: Code(s): I10 - Essential (primary) hypertension Plan: Reinforced low sodium diet - goal is systolic BP of 120 mm or less Continue Lisinopril 5 mg QD Patient is reminded to continue monitoring her BP regularly (3) Dyslipidemia: Code(s): E78.5 - Hyperlipidemia, unspecified Plan: Results of her labs done earlier today reviewed and discussed with patient Reinforced low cholesterol diet Will again hold off on starting patient on statins as her LFTs remain elevated; her cholesterol levels are acceptable and are at or close to goal Will recheck her labs and fasting lipids in 3 months for follow up (4) Hypercoagulable state: Comment: 1st DVT in 2004 after back surgery; 2nd DVT in 2012 - unprovoked; on Xarelto since 2012; had R femoral DVT in 01/2021 - Rx switched to Eliquis Code(s): 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 Holt) as scheduled (5) Lumbar degenerative disc disease: Code(s): M51.36 - Other intervertebral disc degeneration, lumbar region Plan: Reinforced activity and weight-lifting restrictions Continue Cyclobenzaprine 10 mg 3 times a day as needed, Gabapentin 300 mg 2 capsule 3 times a day and Tapentadol 50 mg every 6-8 hours as needed for increased pain (6) Peripheral neuropathy: Code(s): G62.9 - Polyneuropathy, unspecified Qualifiers: Peripheral neuropathy type: polyneuropathy, unspecified Qualified Code(s): G62.9 - Polyneuropathy, unspecified Plan: States that Gabapentin is still helping with her symptoms Follow up with neurology (Dr. Esquivel) as scheduled (7) Acquired hypothyroidism: Code(s): E03.9 - Hypothyroidism, unspecified Plan: Her TFTs are now normal on her recent labs Continue Levothyroxine 88 mcg QD Will recheck her TFTs in 3 months for follow up (8) Vitamin D deficiency: Code(s): E55.9 - Vitamin D deficiency, unspecified Plan: She is advised that her Vitamin D level is still low on her recent labs Continue Vitamin D3 4000 units QD (9) Vitamin B12 deficiency: Code(s): E53.8 - Deficiency of other specified B group vitamins Plan: Continue Vitamin B12 1000 mg QD (10) GERD (gastroesophageal reflux disease): Comment: EGD-biopsies no H pylori, continue omeprazole 20 mg daily Code(s): K21.9 - Gastro-esophageal reflux disease without esophagitis Qualifiers: Esophagitis presence: without esophagitis Qualified Code(s): K21.9 - Gastro-esophageal reflux disease without esophagitis Plan: Dietary restrictions reinforced Continue Omeprazole 20 mg QD (11) Restless leg syndrome: Code(s): G25.81 - Restless legs syndrome Plan: Continue Ropinirole 1 mg Q HS (12) Varicose veins of right lower extremity with inflammation: Comment: 04/12/2022 - right small saphenous vein radiofrequency ablation Code(s): I83.11 - Varicose veins of right lower extremity with inflammation Plan: Follow up with vascular surgery as scheduled Advised that this is most likely the reason for her recent lower extremity edema; she can again try wearing compression stockings and also try to keep her legs elevated as often as she can throughout the day to help manage her edema better (13) Calcaneal spur of both feet: Code(s): M77.31 - Calcaneal spur, right foot; M77.32 - Calcaneal spur, left foot Plan: X-rays of both feet done in 03/2021 revealed (+) bilateral calcaneal spurs She has received cortisone injections from podiatry previously, which she states have not really helped Follow up with podiatry as scheduled (14) Tinea corporis: Code(s): B35.4 - Tinea corporis Plan: Continue Lotrisone cream BID PRN (15) Insomnia: Code(s): G47.00 - Insomnia, unspecified Qualifiers: Insomnia type: unspecified Qualified Code(s): G47.00 - Insomnia, unspecified Plan: Patient states that she has been taking OTC Melatonin 5 mg Q HS but still wakes up in the middle of the night for no particular reason She is advised that she can try increasing her Melatonin up to 10 mg Q HS (16) Anxiety: Code(s): F41.9 - Anxiety disorder, unspecified Plan: Continue Sertraline 100 mg QD and Doxepin 10 mg Q HS Follow up with psychiatry as scheduled (17) Obesity (BMI 30-39.9): Code(s): E66.9 - Obesity, unspecified Plan: Reinforced diet/exercise as tolerated/lose weight Plan Follow up in 3 months Orders: Orders Complete Blood Count Auto Diff 3 Months D64.9 - Anemia, unspecified Lipid Panel 3 Months E78.00 - Pure hypercholesterolemia, unspecified Free T4 (Free Thyroxine) 3 Months E03.9 - Hypothyroidism, unspecified UA CC w/rflx Micro + Cult 3 Months R30.0 - Dysuria Comprehensive [place]. Panel Fast 3 Months E78.00 - Pure hypercholesterolemia, unspecified Thyroid Stimulating Hormone 3 Months E03.9 - Hypothyroidism, unspecified Vitamin D 25-OH Total 3 Months E55.9 - Vitamin D deficiency, unspecified Hemoglobin A1c 3 Months E11.9 - Type 2 diabetes mellitus without complications Microalbumin, Random (w Creat) 3 Months E11.9 - Type 2 diabetes mellitus without complications Coding Level of Care Code Est Pt Level 4 (04055) Complex EM visit Add On G2211 Diagnoses Type 2 diabetes mellitus with hyperglycemia, without long-term current use of insulin E11.65 Diabetes mellitus complication status: with hyperglycemia Diabetes mellitus watermelon harvesting supervisor insulin use: without watermelon harvesting supervisor use Diabetes mellitus type: type 2 Benign essential hypertension I10 Dyslipidemia E78.5 Hypercoagulable state D68.59 Lumbar degenerative disc disease M51.36 Peripheral polyneuropathy G62.9 Peripheral neuropathy type: polyneuropathy, unspecified Acquired hypothyroidism E03.9 Vitamin D deficiency E55.9 Vitamin B12 deficiency E53.8 Gastroesophageal reflux disease without esophagitis K21.9 Esophagitis presence: without esophagitis Restless leg syndrome G25.81 Varicose veins of right lower extremity with inflammation I83.11 Calcaneal spur of both feet M77.31; M77.32 Tinea corporis B35.4 Insomnia, unspecified type G47.00 Insomnia type: unspecified Anxiety F41.9 Obesity (BMI 30-39.9) E66.9
== END 2023-12-17 16:52 | disposition home or self-care (01) ==
PROVIDERS: PCP Internal Medicine; Visit Provider Internal Medicine
DX: E11.65 Type 2 diabetes mellitus with hyperglycemia (principal); I10 Essential (primary) hypertension; E78.5 Hyperlipidemia, unspecified; D68.59 Other primary thrombophilia; M51.36 Other intervertebral disc degeneration, lumbar region; G62.9 Polyneuropathy, unspecified; E03.9 Hypothyroidism, unspecified; E55.9 Vitamin D deficiency, unspecified; E53.8 Deficiency of other specified B group vitamins; K21.9 Gastro-esophageal reflux disease without esophagitis; G25.81 Restless legs syndrome; I83.11 Varicose veins of right lower extremity with inflammation
CPT/HCPCS: 99214; G2211

== ENCOUNTER 2024-04-05 07:25 | Outpatient (REF) | payer BC, SELFPAY ==
[2024-04-05 07:39] LABS: MANUAL DIFF FLAG NO
[2024-04-05 08:25] LABS: Basophils Percent Auto 0.5 % (0-2); Eosinophils Absolute Auto 0.2 X10*3/uL (0.0-0.4); Eosinophils Percent Auto 2.7 % (0-4); Hematocrit 39.7 % (37.0-47.0); Hemoglobin 12.6 g/dl (12.0-16.0); Imm Gran Abs Auto 0.03 X10*3/uL (0.00-0.03); Imm Gran Pct Auto 0.4 % (0.0-0.4); Lymphocytes Absolute Auto 2.5 X10*3/uL (1.2-4.9); Lymphocytes Percent Auto 31.9 % (20-40); Mean Corpuscular HGB Conc 31.7 g/dl (31.0-35.0); Mean Corpuscular Hemoglobin 25.7 pg (27.0-33.0); Mean Platelet Volume 9.3 fL (9.4-12.3); Monocytes Absolute Auto 0.5 X10*3/uL (0.1-1.2); Monocytes Percent Auto 6.2 % (2-11); Neutrophils Absolute Auto 4.6 x10*3/uL (2.0-8.3); Neutrophils Percent Auto 58.3 % (45-73); Platelet Count 289 X10*3/uL (160-400); Red Cell Distribution Width 14.4 % (11.0-16.0); White Blood Count 7.8 X10*3/uL (4.8-10.8)
[2024-04-05 08:31] LABS: Appearance Urine Cloudy; Color Urine Yellow; Glucose Urine UA Negative (Negative); Leukocyte Esterase Urine Trace (Negative); Nitrite Urine Negative (Negative); PH 6.5 (5.0-9.0); Specific Gravity - Urine >= 1.030 (1.005-1.025); UMIC TRIGGER UACC YES; Urine Blood Negative (Negative); Urine Ketones Negative (Negative); Urine Protein Trace mg/dL (Neg-Trace)
[2024-04-05 08:33] LABS: Estimated Average Glucose 146 mg/dL; Hemoglobin A1c % 6.7 % (<6.0)
[2024-04-05 08:38] LABS: Bacteria Urine 3+ (None Seen); Hyaline Casts Urine 0-2 /LPF (0-2); RBC Urine 0-2 /HPF (0-2); Squamous Epithelial Cell Urine >20 /HPF (0-2); UACC Culture Trigger YES
[2024-04-05 09:01] LABS: Alanine Aminotransferase 38 U/L (0-31); Albumin Level 4.1 g/dL (3.5-5.0); Alkaline Phosphatase 92 U/L (39-117); Anion Gap 12 (12-20); Aspartate Amino Transferase 36 U/L (5-31); Bilirubin Total 1.1 mg/dL (0.0-1.0); Blood Urea Nitrogen 16 mg/dL (9-16); Calcium 9.2 mg/dL (8.4-10.2); Carbon Dioxide 28 mmol/L (22-29); Chloride 104 mmol/L (96-108); Cholesterol 171 mg/dL (<200); Estimated Glomerular Filt Rate > 60; Glucose Fasting 136 mg/dL (60-99); HDL Cholesterol 34 mg/dL (>40); LDL Cholesterol Calculated 103 mg/dL (<100); Potassium 4.1 mmol/L (3.3-5.1); Sodium 140 mmol/L (135-145); Total Protein 7.8 g/dL (6.5-8.0); Triglycerides 172 mg/dL (<150)
[2024-04-05 09:04] LABS: Creatinine Urine 217.65 mg/dL; Microalbum/Creatinine Ratio Ur 10.1 ug/mg cr (<30)
[2024-04-05 09:23] LABS: Free T4 (Free Thyroxine) 0.89 ng/dL (0.71-1.85); Thyroid Stimulating Hormone 3.78 uIU/mL (0.32-4.0)
== END 2024-04-05 07:26 | disposition home or self-care (01) ==
LOC: HO.LAB 07:25
PROVIDERS: PCP Internal Medicine; Visit Provider Internal Medicine
DX: D64.9 Anemia, unspecified (principal); E78.00 Pure hypercholesterolemia, unspecified; E11.9 Type 2 diabetes mellitus without complications; E03.9 Hypothyroidism, unspecified; E55.9 Vitamin D deficiency, unspecified; R30.0 Dysuria
CPT/HCPCS: 36415; 80053; 80061; 81001; 82043; 82306; 82570; 83036; 84439; 84443; 85025; 87086

== ENCOUNTER 2024-04-05 16:52 | Outpatient (AMB) | payer BC, SELFPAY ==
[2024-04-05 16:55] VITALS: BP 122/80; PULSE 90; O2SAT 96; BMI 36.4
--- NOTE | 2024-04-05 16:55 | MHC.PC.OV ---
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 Accompanied by: Self / Same As Patient Allergies No Known Allergies Allergy (Verified 04/05/24 17:18) Medication List - Last Reconciled 04/05/24 by Nik Hunt MD albuterol sulfate 90 mcg/actuation (Ventolin HFA) 1 inh inhalation QID PRN apixaban (Eliquis) 5 mg PO BID 90 days cholecalciferol (vitamin D3) 100 mcg (2 x 50 mcg (2,000 unit)) PO DAILY 90 days clotrimazole-betamethasone 1-0.05 % 1 appl topical BID 2 weeks cyclobenzaprine 10 mg PO TID PRN 10 days doxepin 10 mg PO BEDTIME gabapentin 600 mg PO TID 30 days hydroxyzine HCl 25 mg PO TID PRN 30 days levothyroxine 88 mcg PO DAILY 30 days lisinopril 5 mg PO DAILY 90 days mecobalamin (vitamin B12) 1,000 mcg sublingual DAILY 90 days metformin ER 500 mg PO QPM 30 days mupirocin 2% 1 appl topical TID omeprazole 20 mg PO DAILY phenazopyridine (Pyridium) 100 mg PO TID PRN ropinirole 1 mg PO BEDTIME 30 days sertraline 100 mg PO DAILY Tobacco use date assessed: 04/05/24 Dental Screening Dental Screen Date: 04/05/24 Did you have a dental visit in the last 12 months?: No Did you have a dental problem in the last 6 months where you did not have access to dental care?: No Was dental information given to patient?: Patient has dentist HPI 3mof\u HPI Details Patient comes in today for her follow up visit States that she feels okay She denies any headaches or dizziness Denies any chest pains, no increased SOB No nausea/vomiting, no abdominal pain No change in bowel habits noted She had her follow up labs done earlier today - to discuss her results [facility] Medical History Insomnia Diabetes mellitus Acquired hypothyroidism Benign essential hypertension Pain and swelling of right lower extremity Obesity (BMI 30-39.9) Anxiety GERD (gastroesophageal reflux disease) Restless leg syndrome Impaired fasting glucose Stasis edema of both lower extremities Vitamin D deficiency Vitamin B12 deficiency Peripheral neuropathy Lumbar degenerative disc disease Dyslipidemia Hypercoagulable state Hx of deep venous thrombosis Surgical History Hx of endoscopy Hx of colonoscopy History of endometrial ablation History of eye surgery History of surgery History of tubal ligation History of section Family History Father Colon cancer Mother Diabetes Breast cancer Sister Colon cancer Social History Household Members: None Housing: Apartment Are you a primary cattle care worker to a significant other at home: No Do you presently have visiting nurse or other home services: No Alcohol intake: current Alcohol intake frequency: holidays/special occasions only Patient Tobacco Use Status: Never used Tobacco e-Cigarette/Vaping Use: Never Used Second Hand Smoke Exposure: Yes service: No Current occupational status: employed 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 1. Little interest or pleasure in doing things: several days 2. Feeling down, depressed, or hopeless: several days 3. Trouble falling or staying asleep, or sleeping too much: several days 4. Feeling tired or having little energy: several days 5. Poor appetite or overeating: several days 6. Feeling bad about yourself - or that you are a failure or have let yourself or your family down: several days 7. Trouble concentrating on things, such as reading the newspaper or watching television: several days 8. Moving or speaking so slowly that other people could have noticed. Or the opposite - being so fidgety or restless that you have been moving around a lot more than usual: several days 9. Thoughts that you would be better off or of hurting yourself in some way: several days Total score: 9 Depression Screening Interpretation: Positive Depression Screening Follow-up: Existing condition and In treatment Depression Screening Done: Yes 85888 - PHQ-9 Billing: Yes Source: Developed by Drs. Mahendra Jimenez, Jose Luis Johnson and colleagues, with an educational kaden from [employer]. Thrive Questionnaire Date Thrive assessed: 04/05/24 I am a: Patient What is your living situation today?: I have a steady place to live Within the past 12 months, did the food you bought not last and you didn't have the money to get more?: Never true Within the past 12 months, did you worry whether your food would run out before you got money to buy more?: Never true Do you have trouble paying for medicines?: No Do you have trouble getting transportation to medical appointments?: No Do you have trouble paying your heating and electricity bill?: No Do you have trouble taking care of your child, family member or friend?: No Do you have trouble with day-to-day activities such as bathing, preparing meals, shopping, managing finances, etc.?: No Are you currently unemployed and looking for a job?: No Are you interested in more education?: No Please select the resources that you would like help with: None Currently or been in a relationship where the following occur: No concerns reported THRIVE Score: 0 AUDIT C Alcohol Use Questionnaire (AUDIT-C) 1. How often do you have a drink containing alcohol?: Never 3. How often do you have six or more drinks on one occasion?: Never Total Score: 0 Score Reviewed/Action Taken: Yes TONO-7 AMB Questionnaire TONO-7 Date TONO - 7 assessed: 04/05/24 Feeling nervous, anxious, or on edge: 0 = Not at all Not being able to stop or control worryin = Not at all Worrying too much about different things: 0 = Not at all Trouble relaxin = Not at all Being so restless that it is hard to sit still: 0 = Not at all Becoming easily annoyed or irritable: 0 = Not at all Feeling afraid as if something awful might happen: 0 = Not at all Total TONO-7 score (0-4 normal; 5-9 mild; 10-14 moderate; 15-21 severe): 0 Source: Developed by Lauren Hillman Emil, Jose Luis Shah and colleagues, with an educational kaden from [employer]. Review of Systems Const Denies chills, Reports difficulty sleeping, Reports fatigue, Denies fever(s) and Denies headache(s) ENT Denies dysphagia, Denies dizziness, Denies otalgia, Denies headache(s), Denies neck pain, Denies odynophagia and Denies sore throat Card Denies chest pain, Denies irregular heart rhythm, Denies palpitations and Denies dyspnea Resp Denies cough, Denies dyspnea and Denies wheezing GI Denies abdominal pain, Denies constipation, Denies dysphagia, Denies heartburn, Denies diarrhea, Denies nausea, Denies odynophagia and Denies vomiting Denies hematuria, Denies urinary frequency, Denies dysuria and Denies urinary urgency Musc Reports back pain (over the lower back - chronic), Denies arthralgias and Denies neck pain Skin/Breast Denies rash Neuro Denies dizziness, Denies headache(s), Reports restless legs (increased lately) and Denies paresthesias Psych Denies anxiety Endo Reports fatigue and Denies palpitations Ernesto/Lymph Denies easy bruising Aller/Immun Denies wheezing Physical exam (Primary Care) Vital Signs: Last Vital Signs Pulse 90 04/05/24 16:55 BP 122/80 04/05/24 16:55 Pulse Ox 96 04/05/24 16:55 Oxygen Delivery Method Room Air 04/05/24 16:55 BMI result Body Mass Index 36.4 Tobacco/Smoking Status: Tobacco use Status Tobacco use date assessed 04/05/24 04/05/24 17:01 Patient Tobacco Use Status Never used Tobacco 04/05/24 17:01 e-Cigarette/Vaping Use Never Used 04/05/24 17:01 PHQ-9: PHQ-9 Score PHQ-9: Total score 9 04/05/24 17:20 Depression Screening Interpretation: Positive Depression Screening Follow-up: Existing condition and In treatment Thrive Assessment: Date of Thrive Assessment Date Thrive assessed 04/05/24 04/05/24 17:01 Currently or been in a relationship where the following occur: No concerns reported Const General: no acute distress and alert HENMT Ears: TM's normal bilaterally and EAC's normal Throat: Yes posterior oropharynx normal and Yes tonsils normal (no TP congestion) Neck Neck: Yes no lymphadenopathy and Yes supple Thyroid: Thyroid normal Resp Auscultation: clear to auscultation bilaterally, no rales and no wheezes Cardio Rate: regular rate Rhythm: regular rhythm Heart sounds: no murmurs GI Palpation (GI): Soft to palpation and nontender Auscultation: normal bowel sounds General: Yes no CVA tenderness Back/Spine/Pelvis Back: no CVA tenderness Thoracic/Lumbar Spine: lumbar spinal tenderness Skin Rashes: no rashes Extrem General: Yes no clubbing, cyanosis or edema Results Reviewed Results Reviewed: Laboratory Tests 04/05/24 04/05/24 07:38 Unknown WBC 7.8 Hgb 12.6 Hct 39.7 Plt Count 289 Sodium 140 Potassium 4.1 Creatinine 0.79 Estimated GFR > 60 Fasting Glucose 136 H Hemoglobin A1c % 6.7 H Calcium 9.2 AST 36 H ALT 38 H Triglycerides 172 H Cholesterol 171 LDL Cholesterol, Calc 103 H HDL Cholesterol 34 L 25-OH Vitamin D Total 24.0 L TSH 3.78 Free T4 0.89 Urine pH 6.5 Ur Specific [place] >= 1.030 H Urine Protein Trace Urine Glucose (UA) Negative Urine Blood Negative Urine Nitrite Negative Ur Leukocyte Esterase Trace H Microalb/Creat Ratio 10.1 Assessment and Plan Assessment & Plan (1) Dyslipidemia: Code(s): E78.5 - Hyperlipidemia, unspecified Plan: Results of her labs done earlier today reviewed and discussed with patient Reinforced low cholesterol diet Will again hold off on starting patient on statins as her LFTs remain slightly elevated; her cholesterol levels are acceptable and are at or close to goal Will recheck her labs and fasting lipids in 3 months for follow up (2) Diabetes mellitus: Code(s): E11.9 - Type 2 diabetes mellitus without complications Qualifiers: Diabetes mellitus complication status: with hyperglycemia Diabetes mellitus usp insulin use: without usp use Diabetes mellitus type: type 2 Qualified Code(s): E11.65 - Type 2 diabetes mellitus with hyperglycemia Plan: Her HgbA1c was at 6.7% on her labs done earlier today (was at 6.8% a few months ago) - goal is <7.0% Reinforced diabetic diet Continue Metformin ER 500 mg Q PM (3) Benign essential hypertension: Code(s): I10 - Essential (primary) hypertension Plan: Reinforced low sodium diet - goal is systolic BP of 120 mm or less Continue Lisinopril 5 mg QD Patient is reminded to continue monitoring her BP regularly (4) Hypercoagulable state: Comment: 1st DVT in 2004 after back surgery; 2nd DVT in 2012 - unprovoked; on Xarelto since 2012; had R femoral DVT in 01/2021 - Rx switched to Eliquis Code(s): 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 Holt) as scheduled (5) Lumbar degenerative disc disease: Code(s): M51.36 - Other intervertebral disc degeneration, lumbar region Plan: Reinforced activity and weight-lifting restrictions Continue Cyclobenzaprine 10 mg 3 times a day as needed, Gabapentin 300 mg 2 capsule 3 times a day and Tapentadol 50 mg every 6-8 hours as needed for increased pain (6) Peripheral neuropathy: Code(s): G62.9 - Polyneuropathy, unspecified Qualifiers: Peripheral neuropathy type: polyneuropathy, unspecified Qualified Code(s): G62.9 - Polyneuropathy, unspecified Plan: States that Gabapentin is still helping with her symptoms Follow up with neurology (Dr. Esquivel) as scheduled (7) Acquired hypothyroidism: Code(s): E03.9 - Hypothyroidism, unspecified Plan: Her TFTs remain normal on her recent labs Continue Levothyroxine 88 mcg QD Will recheck her TFTs in 3 months for follow up (8) Vitamin D deficiency: Code(s): E55.9 - Vitamin D deficiency, unspecified Plan: Continue Vitamin D3 4000 units QD (9) Vitamin B12 deficiency: Code(s): E53.8 - Deficiency of other specified B group vitamins Plan: Continue Vitamin B12 1000 mg QD (10) GERD (gastroesophageal reflux disease): Comment: EGD-biopsies no H pylori, continue omeprazole 20 mg daily Code(s): K21.9 - Gastro-esophageal reflux disease without esophagitis Qualifiers: Esophagitis presence: without esophagitis Qualified Code(s): K21.9 - Gastro-esophageal reflux disease without esophagitis Plan: Dietary restrictions reinforced Continue Omeprazole 20 mg QD (11) Restless leg syndrome: Code(s): G25.81 - Restless legs syndrome Plan: Continue Ropinirole 1 mg Q HS (12) Varicose veins of right lower extremity with inflammation: Comment: 04/12/2022 - right small saphenous vein radiofrequency ablation Code(s): I83.11 - Varicose veins of right lower extremity with inflammation Plan: Follow up with vascular surgery as scheduled She is reminded that she can wear compression stockings and also to keep her legs elevated as often as she can throughout the day to help manage her edema better (13) Calcaneal spur of both feet: Code(s): M77.31 - Calcaneal spur, right foot; M77.32 - Calcaneal spur, left foot Plan: X-rays of both feet done in 03/2021 revealed (+) bilateral calcaneal spurs She has received cortisone injections from podiatry previously, which she states have not really helped Follow up with podiatry as scheduled (14) Insomnia: Code(s): G47.00 - Insomnia, unspecified Qualifiers: Insomnia type: unspecified Qualified Code(s): G47.00 - Insomnia, unspecified Plan: Sleep hygiene reinforced Continue Melatonin up to 10 mg Q HS PRN (15) Anxiety: Code(s): F41.9 - Anxiety disorder, unspecified Plan: Continue Sertraline 100 mg QD and Doxepin 10 mg Q HS Follow up with psychiatry as scheduled (16) Obesity (BMI 30-39.9): Code(s): E66.9 - Obesity, unspecified Plan: Reinforced diet/exercise as tolerated/lose weight Plan Follow up in 3 months Orders: Orders Complete Blood Count Auto Diff 3 Months D64.9 - Anemia, unspecified Free T4 (Free Thyroxine) 3 Months E03.9 - Hypothyroidism, unspecified Thyroid Stimulating Hormone 3 Months E03.9 - Hypothyroidism, unspecified UA CC w/rflx Micro + Cult 3 Months R30.0 - Dysuria Lipid Panel 3 Months E78.00 - Pure hypercholesterolemia, unspecified Comprehensive [place]. 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 Diabetes mellitus type: type 2 Benign essential hypertension I10 Hypercoagulable state D68.59 Lumbar degenerative disc disease M51.36 Peripheral polyneuropathy G62.9 Peripheral neuropathy type: polyneuropathy, unspecified Acquired hypothyroidism E03.9 Vitamin D deficiency E55.9 Vitamin B12 deficiency E53.8 Gastroesophageal reflux disease without esophagitis K21.9 Esophagitis presence: without esophagitis Restless leg syndrome G25.81 Varicose veins of right lower extremity with inflammation I83.11 Calcaneal spur of both feet M77.31; M77.32 Insomnia, unspecified type G47.00 Insomnia type: unspecified Anxiety F41.9 Obesity (BMI 30-39.9) E66.9
== END 2024-04-05 17:26 | disposition home or self-care (01) ==
PROVIDERS: PCP Internal Medicine; Visit Provider Internal Medicine
DX: E11.65 Type 2 diabetes mellitus with hyperglycemia (principal); D68.59 Other primary thrombophilia; E66.9 Obesity, unspecified; Z68.36 Body mass index [BMI] 36.0-36.9, adult; E78.5 Hyperlipidemia, unspecified; I10 Essential (primary) hypertension; M51.36 Other intervertebral disc degeneration, lumbar region; G62.9 Polyneuropathy, unspecified; E03.9 Hypothyroidism, unspecified; E55.9 Vitamin D deficiency, unspecified; E53.8 Deficiency of other specified B group vitamins; K21.9 Gastro-esophageal reflux disease without esophagitis

== ENCOUNTER 2024-06-30 07:24 | Outpatient (REF) | payer BC, SELFPAY ==
[2024-06-30 07:35] LABS: MANUAL DIFF FLAG NO
[2024-06-30 07:53] LABS: Appearance Urine Cloudy; Color Urine Yellow; Glucose Urine UA Negative (Negative); Leukocyte Esterase Urine Trace (Negative); Nitrite Urine Negative (Negative); PH 7.5 (5.0-9.0); Specific Gravity - Urine 1.025 (1.005-1.025); UMIC TRIGGER UACC YES; Urine Blood Negative (Negative); Urine Ketones Negative (Negative); Urine Protein Trace mg/dL (Neg-Trace)
[2024-06-30 07:57] LABS: Basophils Percent Auto 0.5 % (0-2); Eosinophils Absolute Auto 0.2 X10*3/uL (0.0-0.4); Eosinophils Percent Auto 2.6 % (0-4); Hematocrit 37.8 % (37.0-47.0); Hemoglobin 12.1 g/dl (12.0-16.0); Imm Gran Abs Auto 0.02 X10*3/uL (0.00-0.03); Imm Gran Pct Auto 0.3 % (0.0-0.4); Lymphocytes Absolute Auto 2.3 X10*3/uL (1.2-4.9); Lymphocytes Percent Auto 36.7 % (20-40); Mean Corpuscular Hemoglobin 25.7 pg (27.0-33.0); Mean Corpuscular Volume 80.4 fL (80.0-98.0); Mean Platelet Volume 8.9 fL (9.4-12.3); Monocytes Absolute Auto 0.4 X10*3/uL (0.1-1.2); Monocytes Percent Auto 6.5 % (2-11); Neutrophils Absolute Auto 3.3 x10*3/uL (2.0-8.3); Neutrophils Percent Auto 53.4 % (45-73); Platelet Count 279 X10*3/uL (160-400); Red Cell Distribution Width 14.3 % (11.0-16.0); White Blood Count 6.2 X10*3/uL (4.8-10.8)
[2024-06-30 07:58] LABS: Bacteria Urine 3+ (None Seen); Hyaline Casts Urine 0-2 /LPF (0-2); RBC Urine 0-2 /HPF (0-2); Squamous Epithelial Cell Urine >20 /HPF (0-2); UACC Culture Trigger YES
[2024-06-30 08:03] LABS: Creatinine Urine 168.42 mg/dL
[2024-06-30 08:27] LABS: Alanine Aminotransferase 36 U/L (0-31); Alkaline Phosphatase 87 U/L (39-117); Anion Gap 9 (12-20); Aspartate Amino Transferase 37 U/L (5-31); Bilirubin Total 0.8 mg/dL (0.0-1.0); Blood Urea Nitrogen 16 mg/dL (9-16); Calcium 8.6 mg/dL (8.4-10.2); Carbon Dioxide 32 mmol/L (22-29); Chloride 103 mmol/L (96-108); Cholesterol 169 mg/dL (<200); Estimated Glomerular Filt Rate > 60; Glucose Fasting 141 mg/dL (60-99); HDL Cholesterol 33 mg/dL (>40); LDL Cholesterol Calculated 106 mg/dL (<100); Potassium 4.5 mmol/L (3.3-5.1); Sodium 139 mmol/L (135-145); Total Protein 7.8 g/dL (6.5-8.0); Triglycerides 151 mg/dL (<150)
[2024-06-30 08:45] LABS: Free T4 (Free Thyroxine) 1.11 ng/dL (0.71-1.85); Thyroid Stimulating Hormone 3.37 uIU/mL (0.32-4.0); Vitamin D 25-OH Total 25.8 ng/mL (>30)
== END 2024-06-30 07:25 | disposition home or self-care (01) ==
LOC: HO.LAB 07:24
PROVIDERS: PCP Internal Medicine; Visit Provider Internal Medicine
DX: D64.9 Anemia, unspecified (principal); E78.00 Pure hypercholesterolemia, unspecified; E11.9 Type 2 diabetes mellitus without complications; E03.9 Hypothyroidism, unspecified; E55.9 Vitamin D deficiency, unspecified
CPT/HCPCS: 36415; 80053; 80061; 81001; 82043; 82306; 82570; 83036; 84439; 84443; 85025; 87086; 96127

== ENCOUNTER 2024-06-30 16:18 | Outpatient (AMB) | payer BC, SELFPAY ==
[2024-06-30 16:20] VITALS: BP 130/82; PULSE 83; O2SAT 99; BMI 37.1
--- NOTE | 2024-06-30 16:20 | MHC.PC.OV ---
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 Required: No Accompanied by: Self / Same As Patient Allergies No Known Allergies Allergy (Verified 06/30/24 16:51) Medication List - Last Reconciled 06/30/24 by Nik Hunt MD albuterol sulfate 90 mcg/actuation (Ventolin HFA) 1 inh inhalation QID PRN apixaban (Eliquis) 5 mg PO BID 90 days cholecalciferol (vitamin D3) 100 mcg (2 x 50 mcg (2,000 unit)) PO DAILY 90 days clotrimazole-betamethasone 1-0.05 % 1 appl topical BID 2 weeks cyclobenzaprine 10 mg PO TID PRN 10 days doxepin 10 mg PO BEDTIME gabapentin 600 mg PO TID 30 days hydroxyzine HCl 25 mg PO TID PRN 30 days levothyroxine 88 mcg PO DAILY 30 days lisinopril 5 mg PO DAILY 90 days mecobalamin (vitamin B12) 1,000 mcg sublingual DAILY 90 days metformin ER 500 mg PO QPM 30 days mupirocin 2% 1 appl topical TID omeprazole 20 mg PO DAILY phenazopyridine (Pyridium) 100 mg PO TID PRN ropinirole 1 mg PO BEDTIME 30 days sertraline 100 mg PO DAILY Tobacco use date assessed: 06/30/24 Dental Screening Dental Screen Date: 06/30/24 Did you have a dental visit in the last 12 months?: Yes Did you have a dental problem in the last 6 months where you did not have access to dental care?: No Was dental information given to patient?: Patient has dentist HPI 3 month f/u HPI Details Patient comes in today for her follow-up visit States that she feels okay She denies any headaches or dizziness Denies any chest pains, no shortness of breath No nausea/vomiting, no abdominal pain No change in bowel habits noted She had her follow-up labs done earlier this morning - to discuss her results [facility] Medical History (Updated 07/01/24 @ 05:08 by Nik Hunt MD) Elevated LFTs Insomnia Diabetes mellitus Acquired hypothyroidism Benign essential hypertension Obesity (BMI 30-39.9) Anxiety GERD (gastroesophageal reflux disease) Restless leg syndrome Impaired fasting glucose Stasis edema of both lower extremities Vitamin D deficiency Vitamin B12 deficiency Peripheral neuropathy Lumbar degenerative disc disease Dyslipidemia Hypercoagulable state Hx of deep venous thrombosis Surgical History Hx of endoscopy Hx of colonoscopy History of endometrial ablation History of eye surgery History of surgery History of tubal ligation History of section Family History Father Colon cancer Mother Diabetes Breast cancer Sister Colon cancer Social History Household Members: None Housing: Apartment Are you a primary care management coordinator to a significant other at home: No Do you presently have visiting nurse or other home services: No Alcohol intake: current Alcohol intake frequency: holidays/special occasions only Patient Tobacco Use Status: Never used Tobacco e-Cigarette/Vaping Use: Never Used Second Hand Smoke Exposure: Yes service: No Current occupational status: employed 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 1. Little interest or pleasure in doing things: several days 2. Feeling down, depressed, or hopeless: several days 3. Trouble falling or staying asleep, or sleeping too much: several days 4. Feeling tired or having little energy: several days 5. Poor appetite or overeating: several days 6. Feeling bad about yourself - or that you are a failure or have let yourself or your family down: several days 7. Trouble concentrating on things, such as reading the newspaper or watching television: several days 8. Moving or speaking so slowly that other people could have noticed. Or the opposite - being so fidgety or restless that you have been moving around a lot more than usual: several days 9. Thoughts that you would be better off or of hurting yourself in some way: several days Total score: 9 Depression Screening Interpretation: Positive Depression Screening Follow-up: Existing condition and In treatment Depression Screening Done: Yes 69566 - PHQ-9 Billing: Yes Source: Developed by Drs. Mahendra Jimenez, Lauren Stein, Jose Luis Shah and colleagues, with an educational kaden from [employer]. Thrive Questionnaire Date Thrive assessed: 06/30/24 I am a: Patient What is your living situation today?: I have a steady place to live Within the past 12 months, did the food you bought not last and you didn't have the money to get more?: Never true Within the past 12 months, did you worry whether your food would run out before you got money to buy more?: Never true Do you have trouble paying for medicines?: No Do you have trouble getting transportation to medical appointments?: No Do you have trouble paying your heating and electricity bill?: No Do you have trouble taking care of your child, family member or friend?: No Do you have trouble with day-to-day activities such as bathing, preparing meals, shopping, managing finances, etc.?: No Are you currently unemployed and looking for a job?: No Are you interested in more education?: No Please select the resources that you would like help with: None Currently or been in a relationship where the following occur: No concerns reported THRIVE Score: 0 AUDIT C Alcohol Use Questionnaire (AUDIT-C) 1. How often do you have a drink containing alcohol?: Never 3. How often do you have six or more drinks on one occasion?: Never Total Score: 0 Score Reviewed/Action Taken: Yes TONO-7 AMB Questionnaire TONO-7 Date TONO - 7 assessed: 06/30/24 Feeling nervous, anxious, or on edge: 0 = Not at all Not being able to stop or control worryin = Not at all Worrying too much about different things: 0 = Not at all Trouble relaxin = Not at all Being so restless that it is hard to sit still: 0 = Not at all Becoming easily annoyed or irritable: 0 = Not at all Feeling afraid as if something awful might happen: 0 = Not at all Total TONO-7 score (0-4 normal; 5-9 mild; 10-14 moderate; 15-21 severe): 0 Source: Developed by Lauren Hillman.W. Emil, Jose Luis Shah and colleagues, with an educational kaden from [employer]. Review of Systems Const Denies chills, Reports difficulty sleeping, Denies fatigue, Denies fever(s) and Denies headache(s) ENT Denies dysphagia, Denies dizziness, Denies otalgia, Denies headache(s), Denies neck pain, Denies odynophagia and Denies sore throat Card Denies chest pain, Denies irregular heart rhythm, Denies palpitations and Denies dyspnea Resp Denies cough, Denies dyspnea and Denies wheezing GI Denies abdominal pain, Denies constipation, Denies dysphagia, Denies heartburn, Denies diarrhea, Denies nausea, Denies odynophagia and Denies vomiting Denies hematuria, Denies urinary frequency, Denies dysuria and Denies urinary urgency Musc Reports back pain (over the lower back - chronic), Denies arthralgias and Denies neck pain Skin/Breast Denies rash Neuro Denies dizziness, Denies headache(s), Reports restless legs (increased lately) and Denies paresthesias Psych Denies anxiety Endo Denies fatigue and Denies palpitations Ernesto/Lymph Denies easy bruising Aller/Immun Denies wheezing Physical exam (Primary Care) Vital Signs: Last Vital Signs Pulse 83 06/30/24 16:20 BP 130/82 06/30/24 16:20 Pulse Ox 99 06/30/24 16:20 Oxygen Delivery Method Room Air 06/30/24 16:20 BMI result Body Mass Index 37.1 Tobacco/Smoking Status: Tobacco use Status Tobacco use date assessed 06/30/24 06/30/24 16:27 Patient Tobacco Use Status Never used Tobacco 06/30/24 16:27 e-Cigarette/Vaping Use Never Used 06/30/24 16:27 PHQ-9: PHQ-9 Score PHQ-9: Total score 9 06/30/24 16:58 Depression Screening Interpretation: Positive Depression Screening Follow-up: Existing condition and In treatment Thrive Assessment: Date of Thrive Assessment Date Thrive assessed 06/30/24 06/30/24 16:27 Currently or been in a relationship where the following occur: No concerns reported Const General: no acute distress and alert HENMT Ears: TM's normal bilaterally and EAC's normal Throat: Yes posterior oropharynx normal and Yes tonsils normal (no TP congestion) Neck Neck: Yes supple and No lymphadenopathy Thyroid: Thyroid normal Resp Auscultation: clear to auscultation bilaterally, no rales and no wheezes Cardio Rate: regular rate Rhythm: regular rhythm Heart sounds: no murmurs GI Palpation (GI): Soft to palpation and nontender Auscultation: normal bowel sounds General: Yes no CVA tenderness Back/Spine/Pelvis Back: no CVA tenderness Thoracic/Lumbar Spine: lumbar spinal tenderness Skin Rashes: no rashes Extrem General: Yes no clubbing, cyanosis or edema Results AMB Hemoglobin A1c AMB Hemoglobin A1c 7.2 % Last Edit by SUSHANT Angeles on 06/30/24 16:58 Results Reviewed Results Reviewed: Laboratory Last Values Hgb A1c (Clinic) 7.2 % (4.0-6.0) H 06/30/24 16:48 Laboratory Tests 06/30/24 06/30/24 07:34 Unknown WBC 6.2 Hgb 12.1 Hct 37.8 Plt Count 279 Sodium 139 Potassium 4.5 Creatinine 0.67 Estimated GFR > 60 Fasting Glucose 141 H Calcium 8.6 D AST 37 H ALT 36 H Triglycerides 151 H Cholesterol 169 LDL Cholesterol, Calc 106 H HDL Cholesterol 33 L 25-OH Vitamin D Total 25.8 L TSH 3.37 Free T4 1.11 Ur Specific [place] 1.025 Urine Protein Trace Urine Glucose (UA) Negative Urine Blood Negative Urine Nitrite Negative Ur Leukocyte Esterase Trace H Microalb/Creat Ratio 16.0 Coding Level of Care Code Est Pt Level 4 (80981) Complex EM visit Add On G2211 Diagnoses Type 2 diabetes mellitus with hyperglycemia, without long-term current use of insulin E11.65 Diabetes mellitus complication status: with hyperglycemia Diabetes mellitus long term acute care registered nurse insulin use: without jail use Diabetes mellitus type: type 2 Dyslipidemia E78.5 Benign essential hypertension I10 Hypercoagulable state D68.59 Degeneration of intervertebral disc of lumbar region with discogenic back pain M51.360 Disc-related pain type: discogenic back pain only Acquired hypothyroidism E03.9 Peripheral polyneuropathy G62.9 Peripheral neuropathy type: polyneuropathy, unspecified Vitamin B12 deficiency E53.8 Vitamin D deficiency E55.9 Elevated LFTs R79.89 Gastroesophageal reflux disease without esophagitis K21.9 Esophagitis presence: without esophagitis Restless leg syndrome G25.81 Varicose veins of right lower extremity with inflammation I83.11 Calcaneal spur of both feet M77.31; M77.32 Insomnia, unspecified type G47.00 Insomnia type: unspecified Anxiety F41.9 Obesity (BMI 30-39.9) E66.9 Additional Codes PHQ-9 - 21386 - PHQ-9 Billing: Yes ([id number]) Assessment & Plan Assessment & Plan (1) Diabetes mellitus: Code(s): E11.9 - Type 2 diabetes mellitus without complications Category: Medical Qualifiers: Diabetes mellitus complication status: with hyperglycemia Diabetes mellitus long term acute care registered nurse insulin use: without long term acute care registered nurse use Diabetes mellitus type: type 2 Qualified Code(s): E11.65 - Type 2 diabetes mellitus with hyperglycemia Plan: Her in-office HgbA1c today is at 7.2% (her HgbA1c was previously at 6.7% a few months ago) - goal is <7.0% Reinforced diabetic diet Continue Metformin ER 500 mg Q PM Will go ahead and start her additionally on Mounjaro 2.5 mg SQ once a week (2) Dyslipidemia: Code(s): E78.5 - Hyperlipidemia, unspecified Category: Medical Plan: Results of her labs done earlier today reviewed and discussed with patient Reinforced low-cholesterol diet Will continue to hold off on starting patient on statins as her LFTs remain slightly elevated; her cholesterol levels are acceptable but advised that given her comorbidities (especially being a diabetic), her LDL goal should be <100 mg/dl or closer to 70 mg/dl Will recheck her labs and fasting lipids in 3 months for follow up (3) Benign essential hypertension: Code(s): I10 - Essential (primary) hypertension Category: Medical Plan: Reinforced low sodium diet - goal is systolic BP of 120 mm or less Continue Lisinopril 5 mg QD Patient is reminded to continue monitoring her BP regularly (4) Hypercoagulable state: Comment: 1st DVT in 2004 after back surgery; 2nd DVT in 2012 - unprovoked; on Xarelto since 2012; had R femoral DVT in 01/2021 - Rx switched to Eliquis Code(s): D68.59 - Other primary thrombophilia Category: Medical Plan: Continue Eliquis 5 mg BID Follow up with hematology (Dr. Holt) as scheduled (5) Lumbar degenerative disc disease: Code(s): M51.36 - Other intervertebral disc degeneration, lumbar region Category: Medical Qualifiers: Disc-related pain type: discogenic back pain only Qualified Code(s): M51.360 - Other intervertebral disc degeneration, lumbar region with discogenic back pain only Plan: Reinforced activity and weight-lifting restrictions Continue Cyclobenzaprine 10 mg 3 times a day as needed, Gabapentin 300 mg 2 capsule 3 times a day and Tapentadol 50 mg every 6-8 hours as needed for increased pain (6) Acquired hypothyroidism: Code(s): E03.9 - Hypothyroidism, unspecified Category: Medical Plan: Her TFTs remain normal on her recent labs Continue Levothyroxine 88 mcg QD Will recheck her TFTs in 3 months for follow up (7) Peripheral neuropathy: Code(s): G62.9 - Polyneuropathy, unspecified Category: Medical Qualifiers: Peripheral neuropathy type: polyneuropathy, unspecified Qualified Code(s): G62.9 - Polyneuropathy, unspecified Plan: Patient states that Gabapentin is still helping with her symptoms - she is currently on Gabapentin 600 mg TID Follow up with neurology (Dr. Esquivel) as scheduled (8) Vitamin B12 deficiency: Code(s): E53.8 - Deficiency of other specified B group vitamins Category: Medical Plan: Continue Vitamin B12 tablets 1000 mcg QD (9) Vitamin D deficiency: Code(s): E55.9 - Vitamin D deficiency, unspecified Category: Medical Plan: Continue Vitamin D3 4000 units QD (10) Elevated LFTs: Code(s): R79.89 - Other specified abnormal findings of blood chemistry Category: Medical Plan: Her LFTs remain slightly elevated on her recent labs, likely due to hepatosteatosis Have reminded patient that losing weight should help get these back to normal Will continue to monitor her LFTs regularly (11) GERD (gastroesophageal reflux disease): Comment: EGD-biopsies no H pylori, continue omeprazole 20 mg daily Code(s): K21.9 - Gastro-esophageal reflux disease without esophagitis Category: Medical Qualifiers: Esophagitis presence: without esophagitis Qualified Code(s): K21.9 - Gastro-esophageal reflux disease without esophagitis Plan: Dietary restrictions reinforced Continue Omeprazole 20 mg QD (12) Restless leg syndrome: Code(s): G25.81 - Restless legs syndrome Category: Medical Plan: Continue Ropinirole 1 mg Q HS (13) Varicose veins of right lower extremity with inflammation: Comment: 04/12/2022 - right small saphenous vein radiofrequency ablation Code(s): I83.11 - Varicose veins of right lower extremity with inflammation Category: Medical Plan: Follow up with vascular surgery as scheduled She is reminded that she can wear compression stockings and also to keep her legs elevated as often as she can throughout the day to help manage her edema better (14) Calcaneal spur of both feet: Code(s): M77.31 - Calcaneal spur, right foot; M77.32 - Calcaneal spur, left foot Category: Medical Plan: X-rays of both feet done in 03/2021 revealed (+) bilateral calcaneal spurs She has received cortisone injections from podiatry previously, which she states have not really helped Advised that her other options include orthotic inserts and surgery but only as a last resort Follow up with podiatry as scheduled or as needed (15) Insomnia: Code(s): G47.00 - Insomnia, unspecified Category: Medical Qualifiers: Insomnia type: unspecified Qualified Code(s): G47.00 - Insomnia, unspecified Plan: Sleep hygiene reinforced Continue Melatonin up to 10 mg Q HS PRN (16) Anxiety: Code(s): F41.9 - Anxiety disorder, unspecified Category: Medical Plan: Continue Sertraline 100 mg QD and Doxepin 10 mg Q HS Follow up with psychiatry as scheduled (17) Obesity (BMI 30-39.9): Code(s): E66.9 - Obesity, unspecified Category: Medical Plan: Reinforced diet/exercise as tolerated/lose weight Plan Follow up in 3 months Orders: Orders AMB Hemoglobin A1c 24 Z13.9 - Encounter for screening, unspecified Comprehensive Dania. Panel Fast 3 Months E78.00 - Pure hypercholesterolemia, unspecified Hemoglobin A1c 3 Months E11.9 - Type 2 diabetes mellitus without complications Microalbumin, Random (w Creat) 3 Months E11.9 - Type 2 diabetes mellitus without complications TSH reflex Free T4 3 Months E78.00 - Pure hypercholesterolemia, unspecified UA CC w/rflx Micro + Cult 3 Months R30.0 - Dysuria Complete Blood Count Auto Diff 3 Months D64.9 - Anemia, unspecified Lipid Panel 3 Months E78.00 - Pure hypercholesterolemia, unspecified Medications: New tirzepatide (Mounjaro) 2.5 mg (0.5 mL) subcut QWEEK 4 weeks 2 mL 3RF E11.65 - Type 2 diabetes mellitus with hyperglycemia
== END 2024-06-30 17:03 | disposition home or self-care (01) ==
PROVIDERS: PCP Internal Medicine; Visit Provider Internal Medicine
DX: E11.65 Type 2 diabetes mellitus with hyperglycemia (principal); E78.5 Hyperlipidemia, unspecified; D68.59 Other primary thrombophilia; I10 Essential (primary) hypertension; M51.360 Other intervertebral disc degeneration, lumbar region with discogenic back pain only; E03.9 Hypothyroidism, unspecified; G62.9 Polyneuropathy, unspecified; E53.8 Deficiency of other specified B group vitamins; E55.9 Vitamin D deficiency, unspecified; K21.9 Gastro-esophageal reflux disease without esophagitis; G25.81 Restless legs syndrome

== ENCOUNTER 2024-08-12 | Outpatient (REF) | payer BC, SELFPAY ==
[2024-08-13 05:44] LABS: CT PCR NOT DETECTED (Not Detect.); NG PCR NOT DETECTED (Not Detect.)
[2024-08-13 10:23] LABS: Bacterial Vaginosis PCR POSITIVE (Negative); Candida Group PCR NOT DETECTED (Not Detect); Candida glab krusei PCR NOT DETECTED (Not Detect); Trichomonas vaginalis PCR NOT DETECTED (Not Detect)
== END 2024-08-12 00:01 | disposition home or self-care (01) ==
LOC: HO.LNP
PROVIDERS: Visit Provider Advanced Practice Midwife
DX: N89.8 Other specified noninflammatory disorders of vagina (principal); Z20.2 Contact with and (suspected) exposure to infections with a predominantly sexual mode of transmission
CPT/HCPCS: 81515; 87491; 87591

== ENCOUNTER 2024-08-12 09:23 | Outpatient (REF) | payer BC, SELFPAY | END 2024-08-12 09:24 | disposition home or self-care (01) | LOC: HO.LAB 09:23 | PROVIDERS: PCP Internal Medicine; Visit Provider Advanced Practice Midwife | DX: Z13.89 Encounter for screening for other disorder (principal) ==

== ENCOUNTER 2024-08-13 11:49 | Outpatient (AMB) | payer BC, SELFPAY ==
[2024-08-13 11:56] VITALS: BP 150/100; PULSE 66; TEMP 36.4; O2SAT 100; BMI 36.8
--- NOTE | 2024-08-13 11:56 | MHC.OFFWIV ---
Intake Vital Signs 08/13/24 11:56 08/13/24 12:24 Height 5 ft 6 in Weight 228 lb BMI 36.8 BP 150/100 H 150/100 H Blood Pressure Location Lt brachial Rt brachial Position Sitting Sitting Pulse 66 Pulse Source Pulse Oximeter Temp 97.6 F Temp Source Oral Pulse Oximetry (%) 100 Oxygen Delivery Method Room Air Intake Visit Reasons: EP-BP 160 over 110 Patient Tobacco Use Status: Never used Tobacco Allergies No Known Allergies Allergy (Verified 08/13/24 11:57) Do you need a note to return to daycare/school/sports/work: No HPI HPI Comments History of Present Illness Details This is a 53-year-old female with past medical history significant for essential hypertension, recurrent DVT, type 2 diabetes mellitus who presented to the walk-in clinic complaining of chest pain and elevated blood pressures. Patient states she was sitting at work when she started to develop left-sided to substernal chest pain/pressure with radiation into her left shoulder. She states this pain was not associated with shortness of breath or diaphoresis but she did have mild associated nausea. She states she has not noticed any worsening of her pain with exertion or deep breaths. She went to the school nurse and she was found to have elevated blood pressure to 160 over 110. Patient states she has a history of high blood pressure but admits to being noncompliant with her blood pressure medication as she has been feeling well in her blood pressures have been well controlled. Additionally, she reports a history of recurrent DVT for which she was on Coumadin for several months, which was stopped but she had a recurrent DVT so she was started on Xarelto but had Xarelto failure with recurrent DVT again so she is now on Eliquis. Patient reports being compliant with her Eliquis and has not missed a dose. She reports chronic lower extremity edema but has not noticed any new or worsening leg swelling. Patient states she was feeling stressed and anxious when the chest pain started. She is still complaining of some mild chest discomfort although states it is not as bad as when it started. [facility] Medical History (Updated 08/13/24 @ 12:51 by PALMA Valladares) Elevated LFTs Insomnia Diabetes mellitus Acquired hypothyroidism Benign essential hypertension Obesity (BMI 30-39.9) Anxiety GERD (gastroesophageal reflux disease) Restless leg syndrome Impaired fasting glucose Stasis edema of both lower extremities Vitamin D deficiency Vitamin B12 deficiency Peripheral neuropathy Lumbar degenerative disc disease Dyslipidemia Hypercoagulable state Hx of deep venous thrombosis Surgical History Hx of endoscopy Hx of colonoscopy History of endometrial ablation History of eye surgery History of surgery History of tubal ligation History of section Family History Father Colon cancer Mother Diabetes Breast cancer Sister Colon cancer Social History Household Members: None Housing: Apartment Are you a primary healthcare translator to a significant other at home: No Do you presently have visiting nurse or other home services: No Alcohol intake: current Alcohol intake frequency: holidays/special occasions only Patient Tobacco Use Status: Never used Tobacco e-Cigarette/Vaping Use: Never Used Second Hand Smoke Exposure: Yes service: No Current occupational status: employed 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 Cognitive needs: No Hearing needs: No Vision needs: Yes (Reading glasses) Female Reproductive History Menstrual Age of Menarche: 13 Review of Systems Const All systems reviewed & are unremarkable except as noted in HPI and below Reports no additional complaints Eyes Reports no additional complaints ENT Reports no additional complaints Card Reports no additional complaints Resp Reports no additional complaints GI Reports no additional complaints Reports no additional complaints Musc Reports no additional complaints Skin/Breast Reports system reviewed and no additional complaints, except as documented Neuro Reports no additional complaints Psych Reports no additional complaints Endo Reports no additional complaints Ernesto/Lymph Reports no additional complaints Aller/Immun Reports no additional complaints Physical Exam Vital Signs: Last Vital Signs Temp 97.6 F 08/13/24 11:56 Pulse 66 08/13/24 11:56 BP 150/100 H 08/13/24 12:24 Pulse Ox 100 08/13/24 11:56 Oxygen Delivery Method Room Air 08/13/24 11:56 BMI result Body Mass Index 36.8 Const Other: Vital signs reviewed. Constitutional: Non-toxic appearing. No acute distress. Well-developed and well-nourished. HEENT: Normocephalic and atraumatic. Tympanic membranes without erythema, edema, or bulging bilaterally. External auditory canals without erythema or edema bilaterally. Moist mucous membranes. No pharyngeal erythema or exudates. Skin: Warm and dry. No rashes or lesions noted. Neck: Full and painless range of motion. No cervical lymphadenopathy. Cardio: Regular rate and rhythm. No murmurs, gallops, or rubs. Symmetrical lower extremity edema bilaterally. No calf tenderness to palpation. No JVD. Pulmonary: No respiratory distress. No accessory muscle usage. Clear to auscultation bilaterally without wheezing, crackles, or rhonchi. Gastrointestinal: Soft, nontender, and nondistended in all 4 quadrants. Normoactive bowel sounds in all 4 quadrants. Genitourinary: No CVA tenderness. Musculoskeletal: Normal range of motion in joints throughout the body. No deformity or other signs of injury. Neuro: Alert and oriented x4. Cranial nerves 2-12 grossly intact. No focal deficits appreciated. Psych: Normal mood and affect. Office Procedures EKG Details: Normal sinus rhythm, no acute ischemic changes or ST-T wave changes [id number], Complete Assessment & Plan Assessment & Plan (1) Hypertension: Code(s): I10 - Essential (primary) hypertension Qualifiers: Hypertension type: primary hypertension Qualified Code(s): I10 - Essential (primary) hypertension (2) Chest pain: Code(s): R07.9 - Chest pain, unspecified Qualifiers: Chest pain type: unspecified Qualified Code(s): R07.9 - Chest pain, unspecified Plan 53-year-old female with past medical history significant for essential hypertension, recurrent DVT, type 2 diabetes mellitus who presented to the walk-in clinic complaining of chest pain and elevated blood pressures. Patient's blood pressures remain elevated at 150/100 and she continues to have chest pain/discomfort. An EKG was obtained, which showed normal sinus rhythm without any acute ischemic changes or ST T wave changes. I explained to the patient that her chest pain could certainly be related to her elevated blood pressure; however, she was made aware that we are unable to rule out an NSTEMI or acute coronary syndrome or pulmonary embolism at the walk-in clinic. I did recommend that the patient proceed to the emergency room for further cardiac monitoring as well as further lab work such as troponins; however, patient declined at this time and states she believes her symptoms are related to stress. I did explain to the patient that if she were having an NSTEMI or acute coronary syndrome or pulmonary embolism, this could lead to permanent disability or if not diagnosed in a timely manner. Patient verbalized her understanding but continues to decline transfer to the emergency room. Patient states she will be going home to take her blood pressure medication and relax. Patient signed AMA paperwork. She was instructed to proceed directly to the emergency room if she were to develop any worsening chest pain with radiation, shortness of breath, diaphoresis, or if her blood pressures continue to rise. Patient verbalized her understanding. Orders: Orders AMB EKG-In Office Today R07.9 - Chest pain, unspecified Coding Level of Care Code Est Pt Level 3 (23441) Diagnoses Primary hypertension I10 Hypertension type: primary hypertension Chest pain, unspecified type R07.9 Chest pain type: unspecified CPT Codes EKG - CPT: 57258-[id number], Complete ([id number])
[2024-08-13 12:24] VITALS: BP 150/100
== END 2024-08-13 12:56 | disposition home or self-care (01) ==
PROVIDERS: PCP Internal Medicine; Visit Provider Physician Assistant Medical
DX: I10 Essential (primary) hypertension (principal); R07.9 Chest pain, unspecified

== ENCOUNTER → 2024-08-13 11:49 | Outpatient (BNVA) | payer BC, SELFPAY | PROVIDERS: PCP Internal Medicine | DX: I10 Essential (primary) hypertension (principal); R07.9 Chest pain, unspecified; E11.9 Type 2 diabetes mellitus without complications; Z86.718 Personal history of other venous thrombosis and embolism | CPT/HCPCS: 93005 ==

== ENCOUNTER 2024-09-29 07:18 | Outpatient (REF) | payer BC, SELFPAY ==
[2024-09-29 07:35] LABS: MANUAL DIFF FLAG NO
[2024-09-29 08:13] LABS: Basophils Percent Auto 0.4 % (0-2); Eosinophils Absolute Auto 0.2 X10*3/uL (0.0-0.4); Eosinophils Percent Auto 2.3 % (0-4); Hematocrit 38.9 % (37.0-47.0); Hemoglobin 12.3 g/dl (12.0-16.0); Imm Gran Abs Auto 0.03 X10*3/uL (0.00-0.03); Imm Gran Pct Auto 0.4 % (0.0-0.4); Lymphocytes Absolute Auto 2.5 X10*3/uL (1.2-4.9); Lymphocytes Percent Auto 35.7 % (20-40); Mean Corpuscular HGB Conc 31.6 g/dl (31.0-35.0); Mean Corpuscular Hemoglobin 25.7 pg (27.0-33.0); Mean Corpuscular Volume 81.2 fL (80.0-98.0); Mean Platelet Volume 9.1 fL (9.4-12.3); Monocytes Absolute Auto 0.4 X10*3/uL (0.1-1.2); Monocytes Percent Auto 6.3 % (2-11); Neutrophils Absolute Auto 3.8 x10*3/uL (2.0-8.3); Neutrophils Percent Auto 54.9 % (45-73); Platelet Count 315 X10*3/uL (160-400); Red Blood Count 4.79 X10*6/uL (4.20-5.50); Red Cell Distribution Width 14.1 % (11.0-16.0); White Blood Count 6.9 X10*3/uL (4.8-10.8)
[2024-09-29 08:21] LABS: Estimated Average Glucose 131 mg/dL; Hemoglobin A1c % 6.2 % (<6.0)
[2024-09-29 08:46] LABS: Appearance Urine Cloudy; Color Urine Yellow; Glucose Urine UA Negative (Negative); Leukocyte Esterase Urine Negative (Negative); Nitrite Urine Negative (Negative); Specific Gravity - Urine 1.025 (1.005-1.025); Urine Blood Negative (Negative); Urine Ketones Trace mg/dL (Negative); Urine Protein Negative (Neg-Trace)
[2024-09-29 09:06] LABS: Creatinine Urine 228.16 mg/dL; Microalbum/Creatinine Ratio Ur 7.8 ug/mg cr (<30)
[2024-09-29 09:10] LABS: Alanine Aminotransferase 27 U/L (0-31); Alkaline Phosphatase 97 U/L (39-117); Anion Gap 10 (12-20); Aspartate Amino Transferase 27 U/L (5-31); Bilirubin Total 0.8 mg/dL (0.0-1.0); Blood Urea Nitrogen 16 mg/dL (9-16); Calcium 9.2 mg/dL (8.4-10.2); Carbon Dioxide 29 mmol/L (22-29); Chloride 103 mmol/L (96-108); Cholesterol 168 mg/dL (<200); Estimated Glomerular Filt Rate > 60; Glucose Fasting 124 mg/dL (60-99); HDL Cholesterol 33 mg/dL (>40); LDL Cholesterol Calculated 102 mg/dL (<100); Potassium 4.3 mmol/L (3.3-5.1); Sodium 138 mmol/L (135-145); Triglycerides 165 mg/dL (<150)
[2024-09-29 09:22] LABS: HBsAGNum1 0.22 S/CO (0.00-0.99); HIV AB/AG Nonreactive (Nonreactive); HIV Num 1 0.06 S/CO (0.00-0.99); Hepatitis B Surface Antigen Negative (Negative); Syphilis Screen Nonreactive (Nonreactive); ~HepC Num1 0.08 S/CO (0.00-0.79); ~Hepatitis C Antibody Nonreactive (Nonreactive)
[2024-09-29 09:28] LABS: TSH reflex Free T4 4.54 uIU/mL (0.32-4.0)
[2024-09-29 10:31] LABS: Free T4 (Free Thyroxine) 0.99 ng/dL (0.71-1.85)
== END 2024-09-29 07:19 | disposition home or self-care (01) ==
LOC: HO.LAB 07:18
PROVIDERS: Absent Provider Internal Medicine; PCP Internal Medicine; Visit Provider Advanced Practice Midwife
DX: E11.65 Type 2 diabetes mellitus with hyperglycemia (principal); E78.5 Hyperlipidemia, unspecified; I10 Essential (primary) hypertension; D68.59 Other primary thrombophilia; M51.360 Other intervertebral disc degeneration, lumbar region with discogenic back pain only; E03.9 Hypothyroidism, unspecified; E11.40 Type 2 diabetes mellitus with diabetic neuropathy, unspecified; E53.8 Deficiency of other specified B group vitamins; E55.9 Vitamin D deficiency, unspecified; R79.89 Other specified abnormal findings of blood chemistry; K21.9 Gastro-esophageal reflux disease without esophagitis; G25.81 Restless legs syndrome; I83.11 Varicose veins of right lower extremity with inflammation; M77.31 Calcaneal spur, right foot; M77.32 Calcaneal spur, left foot; G47.00 Insomnia, unspecified; F41.9 Anxiety disorder, unspecified; E66.9 Obesity, unspecified; Z86.718 Personal history of other venous thrombosis and embolism; Z79.01 Long term (current) use of anticoagulants; Z79.84 Long term (current) use of oral hypoglycemic drugs; Z79.899 Other long term (current) drug therapy; D64.9 Anemia, unspecified; R30.0 Dysuria; Z11.3 Encounter for screening for infections with a predominantly sexual mode of transmission; Z80.3 Family history of malignant neoplasm of breast
CPT/HCPCS: 36415; 80053; 80061; 81003; 82043; 82570; 83036; 84439; 84443; 85025; 86780; 86803; 87340; 87389; 96127

== ENCOUNTER 2024-09-29 14:44 | Outpatient (AMB) | payer BC, SELFPAY ==
--- NOTE | 2024-09-29 14:56 | A.OFFPC_ITS ---
Vital Signs 09/29/24 14:57 Height 5 ft 6 in Weight 222 lb 6 oz BMI 35.9 BP 130/86 Blood Pressure Location Lt brachial Position Sitting Pulse 89 Pulse Source Pulse Oximeter Pulse Oximetry (%) 96 Oxygen Delivery Method Room Air Intake Visit Reasons: DM 3 month Machine Hoop Maker Required: No Accompanied by: Self / Same As Patient Allergies No Known Allergies Allergy (Verified 09/29/24 15:40) Medication List - Last Reconciled 09/29/24 by Nik Hunt MD albuterol sulfate 90 mcg/actuation (Ventolin HFA) 1 inh inhalation QID PRN apixaban (Eliquis) 5 mg PO BID 90 days cholecalciferol (vitamin D3) 100 mcg (2 x 50 mcg (2,000 unit)) PO DAILY 90 days clotrimazole-betamethasone 1-0.05 % 1 appl topical BID 2 weeks cyclobenzaprine 10 mg PO TID PRN 10 days doxepin 10 mg PO BEDTIME gabapentin 600 mg PO TID 30 days hydroxyzine HCl 25 mg PO TID PRN 30 days levothyroxine 88 mcg PO DAILY 30 days lisinopril 5 mg PO DAILY 90 days mecobalamin (vitamin B12) 1,000 mcg sublingual DAILY 90 days metformin ER 500 mg PO QPM 30 days mupirocin 2% 1 appl topical TID omeprazole 20 mg PO DAILY ropinirole 1 mg PO BEDTIME 30 days sertraline 100 mg PO DAILY tirzepatide (Mounjaro) 2.5 mg (0.5 mL) subcut QWEEK 4 weeks Tobacco use date assessed: 09/29/24 Dental Screening Dental Screen Date: 09/29/24 Did you have a dental visit in the last 12 months?: Yes Did you have a dental problem in the last 6 months where you did not have access to dental care?: No Was dental information given to patient?: Patient has dentist HPI DM 3 month HPI Details Gordon comes in today for her follow up visit States that she feels okay She denies any headaches or dizziness Denies any chest pains, no shortness of breath No nausea/vomiting, no abdominal pain No change in bowel habits noted States that she was doing well on Mounjaro for the past 2 months and was starting to lose some weight but has not been able to get it for past month due to some insurance issues Needs some Rx refilled today She had her follow up labs done earlier this morning - to discuss her results [facility] Medical History Elevated LFTs Insomnia Diabetes mellitus Acquired hypothyroidism Benign essential hypertension Obesity (BMI 30-39.9) Anxiety GERD (gastroesophageal reflux disease) Restless leg syndrome Impaired fasting glucose Stasis edema of both lower extremities Vitamin D deficiency Vitamin B12 deficiency Peripheral neuropathy Lumbar degenerative disc disease Dyslipidemia Hypercoagulable state Hx of deep venous thrombosis Surgical History Hx of endoscopy Hx of colonoscopy History of endometrial ablation History of eye surgery History of surgery History of tubal ligation History of section Family History Father Colon cancer Mother Diabetes Breast cancer Sister Colon cancer Social History Household Members: None Housing: Apartment Are you a primary care process manager to a significant other at home: No Do you presently have visiting nurse or other home services: No Alcohol intake: current Alcohol intake frequency: holidays/special occasions only Patient Tobacco Use Status: Never used Tobacco e-Cigarette/Vaping Use: Never Used Second Hand Smoke Exposure: Yes service: No Current occupational status: employed 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 1. Little interest or pleasure in doing things: several days 2. Feeling down, depressed, or hopeless: several days 3. Trouble falling or staying asleep, or sleeping too much: several days 4. Feeling tired or having little energy: several days 5. Poor appetite or overeating: several days 6. Feeling bad about yourself - or that you are a failure or have let yourself or your family down: several days 7. Trouble concentrating on things, such as reading the newspaper or watching television: several days 8. Moving or speaking so slowly that other people could have noticed. Or the opposite - being so fidgety or restless that you have been moving around a lot more than usual: several days 9. Thoughts that you would be better off or of hurting yourself in some way: several days Total score: 9 Depression Screening Interpretation: Positive Depression Screening Follow-up: Existing condition and In treatment Depression Screening Done: Yes 68989 - PHQ-9 Billing: Yes Source: Developed by Drs. Mahendra Jimenez, Lauren Stein, Jose Luis Shah and colleagues, with an educational kaden from [employer]. Thrive Questionnaire Date Thrive assessed: 09/29/24 I am a: Patient What is your living situation today?: I have a steady place to live Within the past 12 months, did the food you bought not last and you didn't have the money to get more?: Never true Within the past 12 months, did you worry whether your food would run out before you got money to buy more?: Never true Do you have trouble paying for medicines?: No Do you have trouble getting transportation to medical appointments?: No Do you have trouble paying your heating and electricity bill?: No Do you have trouble taking care of your child, family member or friend?: No Do you have trouble with day-to-day activities such as bathing, preparing meals, shopping, managing finances, etc.?: No Are you currently unemployed and looking for a job?: No Are you interested in more education?: No Please select the resources that you would like help with: None Currently or been in a relationship where the following occur: No concerns reported THRIVE Score: 0 AUDIT C Alcohol Use Questionnaire (AUDIT-C) 1. How often do you have a drink containing alcohol?: Never 3. How often do you have six or more drinks on one occasion?: Never Total Score: 0 Score Reviewed/Action Taken: Yes TONO-7 AMB Questionnaire TONO-7 Date TONO - 7 assessed: 09/29/24 Feeling nervous, anxious, or on edge: 0 = Not at all Not being able to stop or control worryin = Not at all Worrying too much about different things: 0 = Not at all Trouble relaxin = Not at all Being so restless that it is hard to sit still: 0 = Not at all Becoming easily annoyed or irritable: 0 = Not at all Feeling afraid as if something awful might happen: 0 = Not at all Total TONO-7 score (0-4 normal; 5-9 mild; 10-14 moderate; 15-21 severe): 0 Source: Developed by Drs. Mahendra Jimenez, Lauren Stein, Jose Luis Shah and colleagues, with an educational kaden from [employer]. Review of Systems Const Denies chills, Reports difficulty sleeping, Denies fatigue, Denies fever(s) and Denies headache(s) ENT Denies dysphagia, Denies dizziness, Denies otalgia, Denies headache(s), Denies neck pain, Denies odynophagia and Denies sore throat Card Denies chest pain, Denies irregular heart rhythm, Denies palpitations and Denies dyspnea Resp Denies chest congestion, Denies cough and Denies dyspnea GI Denies abdominal pain, Denies constipation, Denies dysphagia, Denies heartburn, Denies diarrhea, Denies nausea, Denies odynophagia and Denies vomiting Denies hematuria, Denies urinary frequency, Denies dysuria and Denies urinary urgency Musc Reports back pain (over the lower back - chronic), Denies arthralgias and Denies neck pain Skin/Breast Denies rash Neuro Denies dizziness, Denies headache(s), Reports restless legs (increased lately) and Denies paresthesias Psych Denies anxiety Endo Denies fatigue and Denies palpitations Ernesto/Lymph Denies easy bruising Physical exam (Primary Care) Vital Signs: Last Vital Signs Pulse 89 09/29/24 14:57 BP 130/86 09/29/24 14:57 Pulse Ox 96 09/29/24 14:57 Oxygen Delivery Method Room Air 09/29/24 14:57 BMI result Body Mass Index 35.9 Tobacco/Smoking Status: Tobacco use Status Tobacco use date assessed 09/29/24 09/29/24 15:02 Patient Tobacco Use Status Never used Tobacco 09/29/24 15:02 e-Cigarette/Vaping Use Never Used 09/29/24 15:02 PHQ-9: PHQ-9 Score PHQ-9: Total score 9 09/29/24 15:41 Depression Screening Interpretation: Positive Depression Screening Follow-up: Existing condition and In treatment Thrive Assessment: Date of Thrive Assessment Date Thrive assessed 09/29/24 09/29/24 15:02 Currently or been in a relationship where the following occur: No concerns reported Const General: no acute distress and alert HENMT Ears: TM's normal bilaterally and EAC's normal Throat: Yes posterior oropharynx normal and Yes tonsils normal (no TP congestion) Neck Neck: Yes supple and No lymphadenopathy Thyroid: Thyroid normal Resp Auscultation: clear to auscultation bilaterally, no rales and no wheezes Cardio Rate: regular rate Rhythm: regular rhythm Heart sounds: no murmurs GI Palpation (GI): Soft to palpation and nontender Auscultation: normal bowel sounds General: Yes no CVA tenderness Back/Spine/Pelvis Back: no CVA tenderness Thoracic/Lumbar Spine: lumbar spinal tenderness Skin Rashes: no rashes Extrem General: Yes no clubbing, cyanosis or edema Results Reviewed Results Reviewed: Laboratory Tests 09/29/24 09/29/24 07:29 07:33 WBC 6.9 Hgb 12.3 Hct 38.9 Plt Count 315 Sodium 138 Potassium 4.3 Creatinine 0.74 Estimated GFR > 60 Fasting Glucose 124 H Hemoglobin A1c % 6.2 H Calcium 9.2 D AST 27 ALT 27 Triglycerides 165 H Cholesterol 168 LDL Cholesterol, Calc 102 H HDL Cholesterol 33 L TSH 4.54 H Free T4 0.99 Ur Specific [place] 1.025 Urine Protein Negative Urine Glucose (UA) Negative Urine Blood Negative Urine Nitrite Negative Ur Leukocyte Esterase Negative Microalb/Creat Ratio 7.8 Coding Level of Care Code Est Pt Level 4 (26093) Complex EM visit Add On G2211 Diagnoses Type 2 diabetes mellitus with hyperglycemia, without long-term current use of insulin E11.65 Diabetes mellitus type: type 2 Diabetes mellitus terminal supervisor insulin use: without terminal supervisor use Diabetes mellitus complication status: with hyperglycemia Dyslipidemia E78.5 Benign essential hypertension I10 Hypercoagulable state D68.59 Degeneration of intervertebral disc of lumbar region with discogenic back pain M51.360 Disc-related pain type: discogenic back pain only Acquired hypothyroidism E03.9 Peripheral polyneuropathy G62.9 Peripheral neuropathy type: polyneuropathy, unspecified Vitamin B12 deficiency E53.8 Vitamin D deficiency E55.9 Elevated LFTs R79.89 Gastroesophageal reflux disease without esophagitis K21.9 Esophagitis presence: without esophagitis Restless leg syndrome G25.81 Varicose veins of right lower extremity with inflammation I83.11 Calcaneal spur of both feet M77.31; M77.32 Insomnia, unspecified type G47.00 Insomnia type: unspecified Anxiety F41.9 Obesity (BMI 30-39.9) E66.9 Additional Codes PHQ-9 - 05257 - PHQ-9 Billing: Yes ([id number]) Assessment & Plan Assessment & Plan (1) Diabetes mellitus: Code(s): E11.9 - Type 2 diabetes mellitus without complications Category: Medical Qualifiers: Diabetes mellitus type: type 2 Diabetes mellitus [facility] insulin use: without [facility] use Diabetes mellitus complication status: with hyperglycemia Qualified Code(s): E11.65 - Type 2 diabetes mellitus with hyperglycemia Plan: Her HgbA1c was at 6.2% on her labs done earlier this morning (her in-office HgbA1c was previously at 7.2% a few months ago) - goal is at least <7.0% Reinforced diabetic diet Continue Metformin ER 500 mg Q PM; she is also supposed to be on Mounjaro 2.5 mg SQ once a week but she has not had the medication over the past week due to some insurance issues, which she is hoping will get cleared up soon Will try switching her over to Ozempic 0.5 mg SQ once a week to see if this will help her bypass whatever insurance issues are currently holding up her original Rx (2) Dyslipidemia: Code(s): E78.5 - Hyperlipidemia, unspecified Category: Medical Plan: Results of her labs done earlier today reviewed and discussed with patient Reinforced low-cholesterol diet Will continue to hold off on starting patient on statins for now - her cholesterol levels are acceptable but advised that given her comorbidities (especially being a diabetic), her LDL goal should be <100 mg/dl and closer to 70 mg/dl Will recheck her labs and fasting lipids in 3 months for follow up (3) Benign essential hypertension: Code(s): I10 - Essential (primary) hypertension Category: Medical Plan: Reinforced low sodium diet - goal is systolic BP of 120 mm or less Continue Lisinopril 5 mg QD Patient is reminded to continue monitoring her BP regularly (4) Hypercoagulable state: Comment: 1st DVT in 2004 after back surgery; 2nd DVT in 2012 - unprovoked; on Xarelto since 2012; had R femoral DVT in 01/2021 - Rx switched to Eliquis Code(s): D68.59 - Other primary thrombophilia Category: Medical Plan: Continue Eliquis 5 mg BID Follow up with hematology (Dr. Holt) as scheduled (5) Lumbar degenerative disc disease: Code(s): M51.36 - Other intervertebral disc degeneration, lumbar region Category: Medical Qualifiers: Disc-related pain type: discogenic back pain only Qualified Code(s): M51.360 - Other intervertebral disc degeneration, lumbar region with discogenic back pain only Plan: Reinforced activity and weight-lifting restrictions Continue Cyclobenzaprine 10 mg 3 times a day as needed, Gabapentin 300 mg 2 capsule 3 times a day and Tapentadol 50 mg every 6-8 hours as needed for increased pain (6) Acquired hypothyroidism: Code(s): E03.9 - Hypothyroidism, unspecified Category: Medical Plan: Her TFTs remain normal on her recent labs Continue Levothyroxine 88 mcg QD Will recheck her TFTs in 3 months for follow up (7) Peripheral neuropathy: Code(s): G62.9 - Polyneuropathy, unspecified Category: Medical Qualifiers: Peripheral neuropathy type: polyneuropathy, unspecified Qualified Code(s): G62.9 - Polyneuropathy, unspecified Plan: Patient states that Gabapentin is still helping with her symptoms - she is currently on Gabapentin 600 mg TID Follow up with neurology (Dr. Esquivel) as scheduled (8) Vitamin B12 deficiency: Code(s): E53.8 - Deficiency of other specified B group vitamins Category: Medical Plan: Continue Vitamin B12 tablets 1000 mcg QD (9) Vitamin D deficiency: Code(s): E55.9 - Vitamin D deficiency, unspecified Category: Medical Plan: Continue Vitamin D3 4000 units QD (10) Elevated LFTs: Code(s): R79.89 - Other specified abnormal findings of blood chemistry Category: Medical Plan: Her LFTs are now normal on her recent labs - were likely due to hepatosteatosis Will continue to monitor her LFTs regularly (11) GERD (gastroesophageal reflux disease): Comment: EGD-biopsies no H pylori, continue omeprazole 20 mg daily Code(s): K21.9 - Gastro-esophageal reflux disease without esophagitis Category: Medical Qualifiers: Esophagitis presence: without esophagitis Qualified Code(s): K21.9 - Gastro-esophageal reflux disease without esophagitis Plan: Dietary restrictions reinforced Continue Omeprazole 20 mg QD (12) Restless leg syndrome: Code(s): G25.81 - Restless legs syndrome Category: Medical Plan: Continue Ropinirole 1 mg Q HS (13) Varicose veins of right lower extremity with inflammation: Comment: 04/12/2022 - right small saphenous vein radiofrequency ablation Code(s): I83.11 - Varicose veins of right lower extremity with inflammation Category: Medical Plan: Follow up with vascular surgery as scheduled She is again reminded that she can wear compression stockings and also to keep her legs elevated as often as she can throughout the day to help manage her edema better (14) Calcaneal spur of both feet: Code(s): M77.31 - Calcaneal spur, right foot; M77.32 - Calcaneal spur, left foot Category: Medical Plan: X-rays of both feet done in 03/2021 revealed (+) bilateral calcaneal spurs She has received cortisone injections from podiatry previously, which she states have not really helped Advised that her other options include orthotic inserts and surgery but only as a last resort Follow up with podiatry as scheduled or as needed (15) Insomnia: Code(s): G47.00 - Insomnia, unspecified Category: Medical Qualifiers: Insomnia type: unspecified Qualified Code(s): G47.00 - Insomnia, unspecified Plan: Sleep hygiene reinforced She continues to experience trouble sleeping at night and states that OTC Melatonin has not helped her at all Will try starting her on Trazodone 50 mg Q HS (16) Anxiety: Code(s): F41.9 - Anxiety disorder, unspecified Category: Medical Plan: Continue Sertraline 100 mg QD and Doxepin 10 mg Q HS Follow up with psychiatry as scheduled (17) Obesity (BMI 30-39.9): Code(s): E66.9 - Obesity, unspecified Category: Medical Plan: Reinforced diet/exercise as tolerated/lose weight Plan Follow up in 3 months Orders: Orders Complete Blood Count Auto Diff 3 Months D64.9 - Anemia, unspecified Lipid Panel 3 Months E78.00 - Pure hypercholesterolemia, unspecified Free T4 (Free Thyroxine) 3 Months E03.9 - Hypothyroidism, unspecified UA CC w/rflx Micro + Cult 3 Months R30.0 - Dysuria Hemoglobin A1c 3 Months E11.9 - Type 2 diabetes mellitus without complications Vitamin B12 and Folate 3 Months E53.8 - Deficiency of other specified B group vitamins Comprehensive [place]. Panel Fast 3 Months E78.00 - Pure hypercholesterolemia, unspecified Thyroid Stimulating Hormone 3 Months E03.9 - Hypothyroidism, unspecified Microalbumin, Random (w Creat) 3 Months E11.9 - Type 2 diabetes mellitus without complications Vitamin D 25-OH Total 3 Months E55.9 - Vitamin D deficiency, unspecified Medications: New trazodone 50 mg PO BEDTIME 30 days PRN 30 tabs 1RF insomnia semaglutide (Ozempic) for 4 weeks 0.5 mg (0.736 mL) subcut QWEEK 4 weeks 3 mL 0RF Refilled hydroxyzine HCl 25 mg PO TID 30 days PRN 90 tabs 1RF Anxiety
[2024-09-29 14:57] VITALS: BP 130/86; PULSE 89; O2SAT 96; BMI 35.9
== END 2024-09-29 15:51 | disposition home or self-care (01) ==
LOC: HO.HMCH 14:45
PROVIDERS: PCP Internal Medicine; Visit Provider Internal Medicine
DX: E11.65 Type 2 diabetes mellitus with hyperglycemia (principal); D68.59 Other primary thrombophilia; E78.5 Hyperlipidemia, unspecified; I10 Essential (primary) hypertension; M51.360 Other intervertebral disc degeneration, lumbar region with discogenic back pain only; E03.9 Hypothyroidism, unspecified; G62.9 Polyneuropathy, unspecified; E53.8 Deficiency of other specified B group vitamins; E55.9 Vitamin D deficiency, unspecified; R79.89 Other specified abnormal findings of blood chemistry; K21.9 Gastro-esophageal reflux disease without esophagitis; G25.81 Restless legs syndrome

== ENCOUNTER 2024-12-18 09:56 | Outpatient (REF) | payer BC, SELFPAY | END 2024-12-18 09:57 | disposition home or self-care (01) | LOC: HO.MAMMO 09:56 | PROVIDERS: Visit Provider Internal Medicine | DX: Z12.31 Encounter for screening mammogram for malignant neoplasm of breast (principal) | CPT/HCPCS: 77063; 77067 ==

== ENCOUNTER → 2024-12-18 10:00 | Outpatient (BNV) | payer BC, SELFPAY | PROVIDERS: Visit Provider Internal Medicine | DX: Z12.31 Encounter for screening mammogram for malignant neoplasm of breast (principal) | CPT/HCPCS: 77063; 77067 ==

== ENCOUNTER 2025-01-24 07:29 | Outpatient (REF) | payer BC, SELFPAY ==
[2025-01-24 07:43] LABS: MANUAL DIFF FLAG NO
[2025-01-24 08:13] LABS: Hematocrit 39.9 % (37.0-47.0); Hemoglobin 12.7 g/dl (12.0-16.0); Imm Gran Abs Auto 0.03 X10*3/uL (0.00-0.03); Imm Gran Pct Auto 0.4 % (0.0-0.4); Lymphocytes Absolute Auto 2.4 X10*3/uL (1.2-4.9); Mean Corpuscular HGB Conc 31.8 g/dl (31.0-35.0); Mean Corpuscular Hemoglobin 26.2 pg (27.0-33.0); Mean Corpuscular Volume 82.3 fL (80.0-98.0); NRBC Abs Auto 0.000 X10*3/uL (0.0-0.012); NRBC Pct Auto 0.0 /100WBC (0.0-0.2); Platelet Count 268 X10*3/uL (160-400); Red Blood Count 4.85 X10*6/uL (4.20-5.50); White Blood Count 7.3 X10*3/uL (4.8-10.8)
[2025-01-24 08:24] LABS: Hemoglobin A1C 143.8210 umol/L; Total Hemoglobin (HGBA1C) 3429.9768 umol/L
[2025-01-24 08:56] LABS: Alanine Aminotransferase 21 U/L (0-31); Albumin Level 4.3 g/dL (3.5-5.0); Alkaline Phosphatase 79 U/L (39-117); Anion Gap 10 (12-20); Aspartate Amino Transferase 26 U/L (5-31); Blood Urea Nitrogen 11 mg/dL (9-16); Calcium 8.9 mg/dL (8.4-10.2); Carbon Dioxide 28 mmol/L (22-29); Chloride 107 mmol/L (96-108); Cholesterol 166 mg/dL (<200); Estimated Glomerular Filt Rate > 60; HDL Cholesterol 30 mg/dL (>40); Potassium 4.2 mmol/L (3.3-5.1); Sodium 141 mmol/L (135-145); Total Protein 7.6 g/dL (6.5-8.0); Triglycerides 125 mg/dL (<150)
[2025-01-24 09:03] LABS: Free T4 (Free Thyroxine) 1.12 ng/dL (0.71-1.85); Thyroid Stimulating Hormone 5.85 uIU/mL (0.32-4.0)
[2025-01-24 09:14] LABS: Folate 10.4 ng/mL (> or = 4.0); Vitamin B12 204 pg/mL (200-900)
[2025-01-24 10:42] LABS: Appearance Urine Cloudy; Glucose Urine UA Negative (Negative); PH 6.0 (5.0-9.0); Specific Gravity - Urine >= 1.030 (1.005-1.025); UMIC TRIGGER UACC YES
[2025-01-24 11:08] LABS: UACC Culture Trigger YES
[2025-01-24 11:26] LABS: Microalbum/Creatinine Ratio Ur 7.7 ug/mg cr (<30)
== END 2025-01-24 07:30 | disposition home or self-care (01) ==
LOC: HO.LAB 07:29
PROVIDERS: Visit Provider Internal Medicine
DX: E11.9 Type 2 diabetes mellitus without complications (principal); E53.8 Deficiency of other specified B group vitamins; E78.00 Pure hypercholesterolemia, unspecified; E03.9 Hypothyroidism, unspecified; D64.9 Anemia, unspecified; E55.9 Vitamin D deficiency, unspecified
CPT/HCPCS: 36415; 80053; 80061; 81001; 81003; 82043; 82306; 82570; 82607; 82746; 83036; 84439; 84443; 85025; 87086

== ENCOUNTER 2025-01-25 14:49 | Outpatient (AMB) | payer BC, SELFPAY ==
--- NOTE | 2025-01-25 14:54 | MHC.PC.OV ---
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 Required: No Accompanied by: Self / Same As Patient Allergies No Known Allergies Allergy (Verified 01/25/25 15:23) Medication List - Last Reconciled 01/25/25 by Nik Hunt MD albuterol sulfate 90 mcg/actuation (Ventolin HFA) 1 inh inhalation QID PRN apixaban (Eliquis) 5 mg PO BID 90 days cholecalciferol (vitamin D3) 100 mcg (2 x 50 mcg (2,000 unit)) PO DAILY 90 days clotrimazole-betamethasone 1-0.05 % 1 appl topical BID 2 weeks cyclobenzaprine 10 mg PO TID PRN 10 days doxepin 10 mg PO BEDTIME gabapentin 600 mg PO TID 30 days hydroxyzine HCl 25 mg PO TID PRN 30 days levothyroxine 88 mcg PO DAILY 30 days lisinopril 5 mg PO DAILY 90 days mecobalamin (vitamin B12) 1,000 mcg sublingual DAILY 90 days metformin ER 500 mg PO QPM 30 days mupirocin 2% 1 appl topical TID omeprazole 20 mg PO DAILY ropinirole 1 mg PO BEDTIME 30 days semaglutide (Ozempic) 0.5 mg (0.736 mL) subcut QWEEK 4 weeks sertraline 100 mg PO DAILY trazodone 50 mg PO BEDTIME PRN 30 days Tobacco use date assessed: 01/25/25 Dental Screening Dental Screen Date: 01/25/25 Did you have a dental visit in the last 12 months?: No Did you have a dental problem in the last 6 months where you did not have access to dental care?: No Was dental information given to patient?: Patient has dentist HPI Follow Up HPI Details Gordon comes in today for her follow up visit States that she feels okay She denies any headaches or dizziness Denies any chest pains, no shortness of breath No nausea/vomiting, no abdominal pain No change in bowel habits noted States that she is now on Ozempic rather than Mounjaro - is not sure why she could not get her Mounjaro Rx refilled a few months ago She had her follow up labs done yesterday - to discuss her results [facility] Medical History Elevated LFTs Insomnia Diabetes mellitus Acquired hypothyroidism Benign essential hypertension Obesity (BMI 30-39.9) Anxiety GERD (gastroesophageal reflux disease) Restless leg syndrome Impaired fasting glucose Stasis edema of both lower extremities Vitamin D deficiency Vitamin B12 deficiency Peripheral neuropathy Lumbar degenerative disc disease Dyslipidemia Hypercoagulable state Hx of deep venous thrombosis Surgical History Hx of endoscopy Hx of colonoscopy History of endometrial ablation History of eye surgery History of surgery History of tubal ligation History of section Family History Father Colon cancer Mother Diabetes Breast cancer Sister Colon cancer Social History Household Members: None Housing: Apartment Are you a primary career manager to a significant other at home: No Do you presently have visiting nurse or other home services: No Alcohol intake: current Alcohol intake frequency: holidays/special occasions only Patient Tobacco Use Status: Never used Tobacco e-Cigarette/Vaping Use: Never Used Second Hand Smoke Exposure: Yes service: No Current occupational status: employed 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 1. Little interest or pleasure in doing things: not at all 2. Feeling down, depressed, or hopeless: several days 3. Trouble falling or staying asleep, or sleeping too much: several days 4. Feeling tired or having little energy: several days 5. Poor appetite or overeating: several days 6. Feeling bad about yourself - or that you are a failure or have let yourself or your family down: not at all 7. Trouble concentrating on things, such as reading the newspaper or watching television: not at all 8. Moving or speaking so slowly that other people could have noticed. Or the opposite - being so fidgety or restless that you have been moving around a lot more than usual: not at all 9. Thoughts that you would be better off or of hurting yourself in some way: not at all Total score: 4 Depression Screening Interpretation: Positive Depression Screening Follow-up: Existing condition and In treatment Depression Screening Done: Yes 73143 - PHQ-9 Billing: Yes Source: Developed by Drs. Mahendra Jimenez, Lauren Stein, Jose Luis Shah and colleagues, with an educational kaden from [employer]. Thrive Questionnaire Date Thrive assessed: 01/25/25 I am a: Patient What is your living situation today?: I have a steady place to live Within the past 12 months, did the food you bought not last and you didn't have the money to get more?: Often true Within the past 12 months, did you worry whether your food would run out before you got money to buy more?: Often true Do you have trouble paying for medicines?: No Do you have trouble getting transportation to medical appointments?: No Do you have trouble paying your heating and electricity bill?: No Do you have trouble taking care of your child, family member or friend?: No Do you have trouble with day-to-day activities such as bathing, preparing meals, shopping, managing finances, etc.?: No Are you currently unemployed and looking for a job?: No Are you interested in more education?: No Please select the resources that you would like help with: None Currently or been in a relationship where the following occur: No concerns reported THRIVE Score: 2 AUDIT C Alcohol Use Questionnaire (AUDIT-C) 1. How often do you have a drink containing alcohol?: Monthly or less 2. How many drinks containing alcohol do you have on a typical day when you are drinking?: 1 or 2 3. How often do you have six or more drinks on one occasion?: Never Total Score: 1 Score Reviewed/Action Taken: Yes TONO-7 AMB Questionnaire TONO-7 Date TONO - 7 assessed: 01/25/25 Feeling nervous, anxious, or on edge: 0 = Not at all Not being able to stop or control worryin = Several days Worrying too much about different things: 1 = Several days Trouble relaxin = Several days Being so restless that it is hard to sit still: 0 = Not at all Becoming easily annoyed or irritable: 0 = Not at all Feeling afraid as if something awful might happen: 0 = Not at all Total TONO-7 score (0-4 normal; 5-9 mild; 10-14 moderate; 15-21 severe): 3 Source: Developed by Drs. Mahendra Jimenez, Lauren Stein, Jose Luis Shah and colleagues, with an educational kaden from [employer]. Review of Systems Const Denies chills, Reports difficulty sleeping, Denies fatigue, Denies fever(s) and Denies headache(s) ENT Denies dysphagia, Denies dizziness, Denies otalgia, Denies headache(s), Denies neck pain, Denies odynophagia and Denies sore throat Card Denies chest pain, Denies irregular heart rhythm, Denies palpitations and Denies dyspnea Resp Denies chest congestion, Denies cough and Denies dyspnea GI Denies abdominal pain, Denies constipation, Denies dysphagia, Denies heartburn, Denies diarrhea, Denies nausea, Denies odynophagia and Denies vomiting Denies hematuria, Denies urinary frequency, Denies dysuria and Denies urinary urgency Musc Reports back pain (over the lower back - chronic), Denies arthralgias and Denies neck pain Skin/Breast Denies rash Neuro Denies dizziness, Denies headache(s), Reports restless legs (increased lately) and Denies paresthesias Psych Denies anxiety Endo Denies fatigue and Denies palpitations Ernesto/Lymph Denies easy bruising Physical exam (Primary Care) Vital Signs: Last Vital Signs Pulse 87 01/25/25 14:55 BP 130/86 01/25/25 14:55 Pulse Ox 98 01/25/25 14:55 Oxygen Delivery Method Room Air 01/25/25 14:55 BMI result Body Mass Index 33.9 Tobacco/Smoking Status: Tobacco use Status Tobacco use date assessed 01/25/25 01/25/25 15:06 Patient Tobacco Use Status Never used Tobacco 01/25/25 15:06 e-Cigarette/Vaping Use Never Used 01/25/25 15:06 PHQ-9: PHQ-9 Score PHQ-9: Total score 4 01/25/25 15:06 Depression Screening Interpretation: Positive Depression Screening Follow-up: Existing condition and In treatment Thrive Assessment: Date of Thrive Assessment Date Thrive assessed 01/25/25 01/25/25 15:06 Currently or been in a relationship where the following occur: No concerns reported Const General: no acute distress and alert HENMT Ears: TM's normal bilaterally and EAC's normal Throat: Yes posterior oropharynx normal and Yes tonsils normal (no TP congestion) Neck Neck: Yes supple and No lymphadenopathy Thyroid: Thyroid normal Resp Auscultation: clear to auscultation bilaterally, no rales and no wheezes Cardio Rate: regular rate Rhythm: regular rhythm Heart sounds: no murmurs GI Palpation (GI): Soft to palpation and nontender Auscultation: normal bowel sounds General: Yes no CVA tenderness Back/Spine/Pelvis Back: no CVA tenderness Thoracic/Lumbar Spine: lumbar spinal tenderness Skin Rashes: no rashes Extrem General: Yes no clubbing, cyanosis or edema Results Reviewed Results Reviewed: Laboratory Tests 01/24/25 01/24/25 07:40 07:42 WBC 7.3 Hgb 12.7 Hct 39.9 Plt Count 268 Sodium 141 Potassium 4.2 Creatinine 0.71 Estimated GFR > 60 Fasting Glucose 107 H Hemoglobin A1c % 6.0 Calcium 8.9 AST 26 ALT 21 Triglycerides 125 Cholesterol 166 LDL Cholesterol, Calc 111 H HDL Cholesterol 30 L Vitamin B12 204 25-OH Vitamin D Total 22.1 L TSH 5.85 H Free T4 1.12 Ur Specific [place] >= 1.030 H Urine Protein Trace Urine Glucose (UA) Negative Urine Blood Negative Urine Nitrite Negative Ur Leukocyte Esterase Small (1+) H Microalb/Creat Ratio 7.7 Coding Level of Care Code Est Pt Level 4 (68219) Complex EM visit Add On G2211 Diagnoses Type 2 diabetes mellitus with hyperglycemia, without long-term current use of insulin E11.65 Diabetes mellitus type: type 2 Diabetes mellitus manager long term care insulin use: without manager long term care use Diabetes mellitus complication status: with hyperglycemia Dyslipidemia E78.5 Benign essential hypertension I10 Hypercoagulable state D68.59 Degeneration of intervertebral disc of lumbar region with discogenic back pain M51.360 Disc-related pain type: discogenic back pain only Acquired hypothyroidism E03.9 Peripheral polyneuropathy G62.9 Peripheral neuropathy type: polyneuropathy, unspecified Vitamin B12 deficiency E53.8 Vitamin D deficiency E55.9 Elevated LFTs R79.89 Gastroesophageal reflux disease without esophagitis K21.9 Esophagitis presence: without esophagitis Restless leg syndrome G25.81 Varicose veins of right lower extremity with inflammation I83.11 Calcaneal spur of both feet M77.31; M77.32 Insomnia, unspecified type G47.00 Insomnia type: unspecified Anxiety F41.9 Obesity (BMI 30-39.9) E66.9 Additional Codes PHQ-9 - 19776 - PHQ-9 Billing: Yes ([id number]) Assessment & Plan Assessment & Plan (1) Diabetes mellitus: Code(s): E11.9 - Type 2 diabetes mellitus without complications Category: Medical Qualifiers: Diabetes mellitus type: type 2 Diabetes mellitus manager long term care insulin use: without [place] [facility] use Diabetes mellitus complication status: with hyperglycemia Qualified Code(s): E11.65 - Type 2 diabetes mellitus with hyperglycemia Plan: Her HgbA1c improved to 6.0% on her labs done yesterday (was at 6.2% a few months ago) - goal is at least <7.0% Reinforced diabetic diet Continue Metformin ER 500 mg Q PM and Ozempic 0.5 mg SQ once a week (2) Dyslipidemia: Code(s): E78.5 - Hyperlipidemia, unspecified Category: Medical Plan: Results of her labs done yesterday reviewed and discussed with patient Reinforced low-cholesterol diet Will continue to hold off on starting patient on statins for now - her cholesterol levels are acceptable with her LDL cholesterol at 111 mg/dl but advised that given her comorbidities (especially being a diabetic), her LDL goal should be <100 mg/dl and closer to 70 mg/dl Will recheck her labs and fasting lipids in 3 months for follow up (3) Benign essential hypertension: Code(s): I10 - Essential (primary) hypertension Category: Medical Plan: Reinforced low sodium diet - goal is systolic BP of 120 mm or less Continue Lisinopril 5 mg QD Patient is reminded to continue monitoring her BP regularly (4) Hypercoagulable state: Comment: 1st DVT in 2004 after back surgery; 2nd DVT in 2012 - unprovoked; on Xarelto since 2012; had R femoral DVT in 01/2021 - Rx switched to Eliquis Code(s): D68.59 - Other primary thrombophilia Category: Medical Plan: Continue Eliquis 5 mg BID Follow up with hematology (Dr. Holt) as scheduled (5) Lumbar degenerative disc disease: Code(s): M51.36 - Other intervertebral disc degeneration, lumbar region Category: Medical Qualifiers: Disc-related pain type: discogenic back pain only Qualified Code(s): M51.360 - Other intervertebral disc degeneration, lumbar region with discogenic back pain only Plan: Reinforced activity and weight-lifting restrictions Continue Cyclobenzaprine 10 mg 3 times a day as needed, Gabapentin 300 mg 2 capsule 3 times a day and Tapentadol 50 mg every 6-8 hours as needed for increased pain (6) Acquired hypothyroidism: Code(s): E03.9 - Hypothyroidism, unspecified Category: Medical Plan: Her TFTs remain normal on her recent labs Continue Levothyroxine 88 mcg QD Will recheck her TFTs in 3 months for follow up (7) Peripheral neuropathy: Code(s): G62.9 - Polyneuropathy, unspecified Category: Medical Qualifiers: Peripheral neuropathy type: polyneuropathy, unspecified Qualified Code(s): G62.9 - Polyneuropathy, unspecified Plan: Patient states that Gabapentin is still helping with her symptoms - she is currently on Gabapentin 600 mg TID Follow up with neurology (Dr. Esquivel) as scheduled (8) Vitamin B12 deficiency: Code(s): E53.8 - Deficiency of other specified B group vitamins Category: Medical Plan: Continue Vitamin B12 tablets 1000 mcg QD - she admits to not taking this for a while now Have advised her that her B12 level is low again and she should start back on this JEREMIAH - new Rx sent for B12 tablets (9) Vitamin D deficiency: Code(s): E55.9 - Vitamin D deficiency, unspecified Category: Medical Plan: Continue Vitamin D3 4000 units QD (10) Elevated LFTs: Code(s): R79.89 - Other specified abnormal findings of blood chemistry Category: Medical Plan: Her LFTs have remained normal on her recent labs - they were likely due to hepatosteatosis when they were evelated before Will continue to monitor her LFTs regularly (11) GERD (gastroesophageal reflux disease): Comment: EGD-biopsies no H pylori, continue omeprazole 20 mg daily Code(s): K21.9 - Gastro-esophageal reflux disease without esophagitis Category: Medical Qualifiers: Esophagitis presence: without esophagitis Qualified Code(s): K21.9 - Gastro-esophageal reflux disease without esophagitis Plan: Dietary restrictions reinforced Continue Omeprazole 20 mg QD (12) Restless leg syndrome: Code(s): G25.81 - Restless legs syndrome Category: Medical Plan: Continue Ropinirole 1 mg Q HS (13) Varicose veins of right lower extremity with inflammation: Comment: 04/12/2022 - right small saphenous vein radiofrequency ablation Code(s): I83.11 - Varicose veins of right lower extremity with inflammation Category: Medical Plan: Follow up with vascular surgery as scheduled She is again reminded that she can wear compression stockings and also to keep her legs elevated as often as she can throughout the day to help manage her edema better (14) Calcaneal spur of both feet: Code(s): M77.31 - Calcaneal spur, right foot; M77.32 - Calcaneal spur, left foot Category: Medical Plan: X-rays of both feet done in 03/2021 revealed (+) bilateral calcaneal spurs She has received cortisone injections from podiatry previously, which she states have not really helped Advised that her other options include orthotic inserts and surgery but only as a last resort Follow up with podiatry as scheduled or as needed (15) Insomnia: Code(s): G47.00 - Insomnia, unspecified Category: Medical Qualifiers: Insomnia type: unspecified Qualified Code(s): G47.00 - Insomnia, unspecified Plan: Sleep hygiene reinforced Continue Trazodone 50 mg Q HS (16) Anxiety: Code(s): F41.9 - Anxiety disorder, unspecified Category: Medical Plan: Continue Sertraline 100 mg QD and Doxepin 10 mg Q HS Follow up with psychiatry as scheduled (17) Obesity (BMI 30-39.9): Code(s): E66.9 - Obesity, unspecified Category: Medical Plan: Reinforced diet/exercise as tolerated/lose weight Plan Follow up in 3 months Orders: Orders Comprehensive [place]. Panel Fast 3 Months E78.00 - Pure hypercholesterolemia, unspecified Lipid Panel 3 Months E78.00 - Pure hypercholesterolemia, unspecified Thyroid Stimulating Hormone 3 Months E03.9 - Hypothyroidism, unspecified UA CC w/rflx Micro + Cult 3 Months R30.0 - Dysuria Free T4 (Free Thyroxine) 3 Months E03.9 - Hypothyroidism, unspecified Vitamin B12 and Folate 3 Months E53.8 - Deficiency of other specified B group vitamins Hemoglobin A1c 3 Months E11.9 - Type 2 diabetes mellitus without complications Complete Blood Count Auto Diff 3 Months D64.9 - Anemia, unspecified Microalbumin, Random (w Creat) 3 Months E11.9 - Type 2 diabetes mellitus without complications Vitamin D 25-OH Total 3 Months E55.9 - Vitamin D deficiency, unspecified Medications: Refilled cholecalciferol (vitamin D3) 100 mcg (2 x 50 mcg (2,000 unit)) PO DAILY 180 caps 3RF 90 days E55.9 - Vitamin D deficiency, unspecified mecobalamin (vitamin B12) place tablet under tongue and allow to dissolve for at least30 secs before swallowing 1,000 mcg sublingual DAILY 90 tabs 3RF 90 days E53.8 - Deficiency of other specified B group vitamins
[2025-01-25 14:55] VITALS: BP 130/86; PULSE 87; O2SAT 98; BMI 33.9
--- OUTSIDE RECORDS SUMMARY | 2025-01-25 16:11 | XMS_ITS | Patient Health Record ---
Author Organization [facility] Address [address] [place] [id number] Care Team Providers Care Anesthesiology Resident Name Role Phone Mahendra Gunter Unavailable [phone] Reason For Referral No Information Plan Of Treatment No Information
== END 2025-01-25 15:34 | disposition home or self-care (01) ==
LOC: HO.HMCH 14:50
PROVIDERS: PCP Internal Medicine; Visit Provider Internal Medicine
DX: E11.65 Type 2 diabetes mellitus with hyperglycemia (principal); E78.5 Hyperlipidemia, unspecified; E66.9 Obesity, unspecified; Z68.33 Body mass index [BMI] 33.0-33.9, adult; I10 Essential (primary) hypertension; D68.59 Other primary thrombophilia; M51.360 Other intervertebral disc degeneration, lumbar region with discogenic back pain only; E03.9 Hypothyroidism, unspecified; G62.9 Polyneuropathy, unspecified; E53.8 Deficiency of other specified B group vitamins; E55.9 Vitamin D deficiency, unspecified; R79.89 Other specified abnormal findings of blood chemistry

== ENCOUNTER → 2025-01-25 14:49 | Outpatient (BNVA) | payer BC, SELFPAY | PROVIDERS: PCP Internal Medicine; Visit Provider Internal Medicine | DX: E11.65 Type 2 diabetes mellitus with hyperglycemia (principal); E78.5 Hyperlipidemia, unspecified; I10 Essential (primary) hypertension; D68.59 Other primary thrombophilia; M51.360 Other intervertebral disc degeneration, lumbar region with discogenic back pain only; E03.9 Hypothyroidism, unspecified; G62.9 Polyneuropathy, unspecified; E53.8 Deficiency of other specified B group vitamins; E55.9 Vitamin D deficiency, unspecified; R79.89 Other specified abnormal findings of blood chemistry; K21.9 Gastro-esophageal reflux disease without esophagitis; G25.81 Restless legs syndrome; I83.11 Varicose veins of right lower extremity with inflammation; M77.32 Calcaneal spur, left foot; M77.31 Calcaneal spur, right foot; G47.00 Insomnia, unspecified; F41.9 Anxiety disorder, unspecified; E66.9 Obesity, unspecified; Z68.33 Body mass index [BMI] 33.0-33.9, adult | CPT/HCPCS: 96127 ==

== ENCOUNTER 2025-04-29 07:25 | Outpatient (REF) | payer BC, SELFPAY ==
--- OUTSIDE RECORDS SUMMARY | 2025-04-29 07:27 | XMS_ITS | Patient Health Record ---
Author Organization [facility] Address [address] [place] [id number] Care Team Providers Care Shrink Pit Operator Name Role Phone Mahendra Gunter Unavailable [phone] Reason For Referral No Information Plan Of Treatment No Information
[2025-04-29 07:48] LABS: MANUAL DIFF FLAG NO
[2025-04-29 08:26] LABS: Hematocrit 40.0 % (37.0-47.0); Hemoglobin 12.7 g/dl (12.0-16.0); Imm Gran Abs Auto 0.02 X10*3/uL (0.00-0.03); Imm Gran Pct Auto 0.3 % (0.0-0.4); Lymphocytes Absolute Auto 1.8 X10*3/uL (1.2-4.9); Mean Corpuscular HGB Conc 31.8 g/dl (31.0-35.0); Mean Corpuscular Hemoglobin 26.0 pg (27.0-33.0); Mean Corpuscular Volume 82.0 fL (80.0-98.0); NRBC Abs Auto 0.000 X10*3/uL (0.0-0.012); NRBC Pct Auto 0.0 /100WBC (0.0-0.2); Platelet Count 264 X10*3/uL (160-400); Red Blood Count 4.88 X10*6/uL (4.20-5.50); White Blood Count 6.0 X10*3/uL (4.8-10.8)
[2025-04-29 08:33] LABS: Appearance Urine Cloudy; Glucose Urine UA Negative (Negative); PH 8.0 (5.0-9.0); Specific Gravity - Urine 1.025 (1.005-1.025); UMIC TRIGGER UACC YES
[2025-04-29 08:36] LABS: UACC Culture Trigger YES
[2025-04-29 08:59] LABS: Alanine Aminotransferase 20 U/L (0-31); Albumin Level 4.3 g/dL (3.5-5.0); Alkaline Phosphatase 90 U/L (39-117); Anion Gap 11 (12-20); Aspartate Amino Transferase 23 U/L (5-31); Blood Urea Nitrogen 17 mg/dL (9-16); Calcium 9.2 mg/dL (8.4-10.2); Carbon Dioxide 29 mmol/L (22-29); Chloride 104 mmol/L (96-108); Cholesterol 174 mg/dL (<200); Estimated Glomerular Filt Rate > 60; HDL Cholesterol 34 mg/dL (>40); Potassium 4.4 mmol/L (3.3-5.1); Sodium 140 mmol/L (135-145); Total Protein 7.6 g/dL (6.5-8.0); Triglycerides 123 mg/dL (<150)
[2025-04-29 09:19] LABS: Free T4 (Free Thyroxine) 0.94 ng/dL (0.71-1.85); Thyroid Stimulating Hormone 2.87 uIU/mL (0.32-4.0)
[2025-04-29 09:23] LABS: Folate 11.4 ng/mL (> or = 4.0); Vitamin B12 148 pg/mL (200-900)
[2025-04-29 09:31] LABS: Microalbum/Creatinine Ratio Ur 9.5 ug/mg cr (<30)
== END 2025-04-29 07:26 | disposition home or self-care (01) ==
LOC: HO.LAB 07:25
PROVIDERS: PCP Internal Medicine; Visit Provider Internal Medicine
DX: E11.65 Type 2 diabetes mellitus with hyperglycemia (principal); E78.5 Hyperlipidemia, unspecified; I10 Essential (primary) hypertension; D68.59 Other primary thrombophilia; M51.360 Other intervertebral disc degeneration, lumbar region with discogenic back pain only; E03.9 Hypothyroidism, unspecified; G62.9 Polyneuropathy, unspecified; E53.8 Deficiency of other specified B group vitamins; E55.9 Vitamin D deficiency, unspecified; R79.89 Other specified abnormal findings of blood chemistry; K21.9 Gastro-esophageal reflux disease without esophagitis; G25.81 Restless legs syndrome; I83.11 Varicose veins of right lower extremity with inflammation; M77.31 Calcaneal spur, right foot; M77.32 Calcaneal spur, left foot; G47.00 Insomnia, unspecified; F41.9 Anxiety disorder, unspecified; E66.9 Obesity, unspecified; Z68.33 Body mass index [BMI] 33.0-33.9, adult; Z79.84 Long term (current) use of oral hypoglycemic drugs; Z79.01 Long term (current) use of anticoagulants
CPT/HCPCS: 36415; 80053; 80061; 81001; 82043; 82306; 82570; 82607; 82746; 83036; 84439; 84443; 85025; 87086

== ENCOUNTER 2025-04-29 15:03 | Outpatient (AMB) | payer BC, SELFPAY ==
--- NOTE | 2025-04-29 15:11 | MHC.PC.OV ---
Vital Signs 04/29/25 15:12 Height 5 ft 6 in Weight 204 lb 8 oz BMI 33.0 BP 120/86 Blood Pressure Location Lt brachial Position Sitting Pulse 89 Pulse Source Pulse Oximeter Pulse Oximetry (%) 96 Oxygen Delivery Method Room Air Intake Visit Reasons: 3 Months Gear Generator Set Up Operator Required: No Accompanied by: Self / Same As Patient Allergies No Known Allergies Allergy (Verified 04/29/25 15:48) Medication List - Last Reconciled 04/29/25 by Nik Hunt MD albuterol sulfate 90 mcg/actuation (Ventolin HFA) 1 inh inhalation QID PRN apixaban (Eliquis) 5 mg PO BID 90 days cholecalciferol (vitamin D3) 100 mcg (2 x 50 mcg (2,000 unit)) PO DAILY 90 days clotrimazole-betamethasone 1-0.05 % 1 appl topical BID 2 weeks cyclobenzaprine 10 mg PO TID PRN 10 days doxepin 10 mg PO BEDTIME gabapentin 600 mg PO TID 30 days hydroxyzine HCl 25 mg PO TID PRN 30 days levothyroxine 88 mcg PO DAILY 30 days lisinopril 5 mg PO DAILY 90 days mecobalamin (vitamin B12) 1,000 mcg sublingual DAILY 90 days metformin ER 500 mg PO QPM 30 days mupirocin 2% 1 appl topical TID omeprazole 20 mg PO DAILY ropinirole 1 mg PO BEDTIME 30 days semaglutide (Ozempic) 0.5 mg (0.736 mL) subcut QWEEK 4 weeks sertraline 100 mg PO DAILY trazodone 50 mg PO BEDTIME PRN 30 days Tobacco use date assessed: 04/29/25 Dental Screening Dental Screen Date: 04/29/25 Did you have a dental visit in the last 12 months?: Yes Did you have a dental problem in the last 6 months where you did not have access to dental care?: No Was dental information given to patient?: Patient has dentist HPI 3 Months HPI Details Gordon comes in today for her follow up visit States that she feels okay She denies any headaches or dizziness Denies any chest pains, no shortness of breath No nausea/vomiting, no abdominal pain No change in bowel habits noted Needs her Eliquis Rx refilled - states that she has been out of her Eliquis for at least a couple of months now and is wondering if she needs to see hematology to be able to get it refilled She had her follow up labs done earlier this morning - to discuss her results [facility] Medical History Elevated LFTs Insomnia Diabetes mellitus Acquired hypothyroidism Benign essential hypertension Obesity (BMI 30-39.9) Anxiety GERD (gastroesophageal reflux disease) Restless leg syndrome Impaired fasting glucose Stasis edema of both lower extremities Vitamin D deficiency Vitamin B12 deficiency Peripheral neuropathy Lumbar degenerative disc disease Dyslipidemia Hypercoagulable state Hx of deep venous thrombosis Surgical History Hx of endoscopy Hx of colonoscopy History of endometrial ablation History of eye surgery History of surgery History of tubal ligation History of section Family History Father Colon cancer Mother Diabetes Breast cancer Sister Colon cancer Social History Household Members: None Housing: Apartment Are you a primary career technology teacher to a significant other at home: No Do you presently have visiting nurse or other home services: No Alcohol intake: current Alcohol intake frequency: holidays/special occasions only Patient Tobacco Use Status: Never used Tobacco e-Cigarette/Vaping Use: Never Used Second Hand Smoke Exposure: Yes service: No Current occupational status: employed 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 Cognitive needs: No Hearing needs: No Vision needs: Yes (Reading glasses) Female Reproductive History Menstrual Age of Menarche: 13 Questionnaire Thrive Questionnaire Date Thrive assessed: 01/25/25 I am a: Patient What is your living situation today?: I have a steady place to live Within the past 12 months, did the food you bought not last and you didn't have the money to get more?: Often true Within the past 12 months, did you worry whether your food would run out before you got money to buy more?: Often true Do you have trouble paying for medicines?: No Do you have trouble getting transportation to medical appointments?: No Do you have trouble paying your heating and electricity bill?: No Do you have trouble taking care of your child, family member or friend?: No Do you have trouble with day-to-day activities such as bathing, preparing meals, shopping, managing finances, etc.?: No Are you currently unemployed and looking for a job?: No Are you interested in more education?: No Please select the resources that you would like help with: None Currently or been in a relationship where the following occur: No concerns reported THRIVE Score: 2 TONO-7 AMB Questionnaire TONO-7 Date TONO - 7 assessed: 01/25/25 Source: Developed by Drs. Mahendra Jimenez, Lauren Stein, Jose Luis Shah and colleagues, with an educational kaden from [employer] Review of Systems Const Denies chills, Denies difficulty sleeping (Trazodone has been helping), Denies fatigue, Denies fever(s) and Denies headache(s) ENT Denies dysphagia, Denies dizziness, Denies otalgia, Denies headache(s), Denies neck pain, Denies odynophagia and Denies sore throat Card Denies chest pain, Denies irregular heart rhythm, Denies palpitations and Denies dyspnea Resp Denies chest congestion, Denies cough and Denies dyspnea GI Denies abdominal pain, Denies constipation, Denies dysphagia, Denies heartburn, Denies diarrhea, Denies nausea, Denies odynophagia and Denies vomiting Denies hematuria, Denies urinary frequency, Denies dysuria and Denies urinary urgency Musc Reports back pain (over the lower back - chronic), Denies arthralgias and Denies neck pain Skin/Breast Denies rash Neuro Denies dizziness, Denies headache(s), Reports restless legs (increased lately) and Denies paresthesias Psych Denies anxiety Endo Denies fatigue and Denies palpitations Ernesto/Lymph Denies easy bruising Physical exam (Primary Care) Vital Signs: Last Vital Signs Pulse 89 04/29/25 15:12 BP 120/86 04/29/25 15:12 Pulse Ox 96 04/29/25 15:12 Oxygen Delivery Method Room Air 04/29/25 15:12 BMI result Body Mass Index 33.0 Tobacco/Smoking Status: Tobacco use Status Tobacco use date assessed 04/29/25 04/29/25 15:16 Patient Tobacco Use Status Never used Tobacco 04/29/25 15:16 e-Cigarette/Vaping Use Never Used 04/29/25 15:16 Thrive Assessment: Date of Thrive Assessment Date Thrive assessed 01/25/25 04/29/25 15:16 Currently or been in a relationship where the following occur: No concerns reported Const General: no acute distress and alert HENMT Ears: TM's normal bilaterally and EAC's normal Throat: Yes posterior oropharynx normal and Yes tonsils normal (no TP congestion) Neck Neck: Yes supple and No lymphadenopathy Thyroid: Thyroid normal Resp Auscultation: clear to auscultation bilaterally, no rales and no wheezes Cardio Rate: regular rate Rhythm: regular rhythm Heart sounds: no murmurs GI Palpation (GI): Soft to palpation and nontender Auscultation: normal bowel sounds General: Yes no CVA tenderness Back/Spine/Pelvis Back: no CVA tenderness Thoracic/Lumbar Spine: lumbar spinal tenderness Skin Rashes: no rashes Extrem General: Yes no clubbing, cyanosis or edema Results Reviewed Results Reviewed: Laboratory Tests 04/29/25 04/29/25 07:40 07:44 WBC 6.0 Hgb 12.7 Hct 40.0 Plt Count 264 Sodium 140 Potassium 4.4 Creatinine 0.70 Estimated GFR > 60 Fasting Glucose 100 H Hemoglobin A1c % 6.0 Calcium 9.2 AST 23 ALT 20 Triglycerides 123 Cholesterol 174 LDL Cholesterol, Calc 116 H HDL Cholesterol 34 L Vitamin B12 148 L 25-OH Vitamin D Total 22.6 L TSH 2.87 Free T4 0.94 Ur Specific [place] 1.025 Urine Protein Negative Urine Glucose (UA) Negative Urine Blood Negative Urine Nitrite Negative Ur Leukocyte Esterase Trace H Microalb/Creat Ratio 9.5 Coding Level of Care Code Est Pt Level 4 (17618) Complex EM visit Add On G2211 Diagnoses Type 2 diabetes mellitus with hyperglycemia, without long-term current use of insulin E11.65 Diabetes mellitus complication status: with hyperglycemia Diabetes mellitus residential insulin use: without residential use Diabetes mellitus type: type 2 Dyslipidemia E78.5 Benign essential hypertension I10 Hypercoagulable state D68.59 Degeneration of intervertebral disc of lumbar region with discogenic back pain M51.360 Disc-related pain type: discogenic back pain only Acquired hypothyroidism E03.9 Peripheral polyneuropathy G62.9 Peripheral neuropathy type: polyneuropathy, unspecified Vitamin B12 deficiency E53.8 Vitamin D deficiency E55.9 Elevated LFTs R79.89 Gastroesophageal reflux disease without esophagitis K21.9 Esophagitis presence: without esophagitis Restless leg syndrome G25.81 Varicose veins of right lower extremity with inflammation I83.11 Calcaneal spur of both feet M77.31; M77.32 Insomnia, unspecified type G47.00 Insomnia type: unspecified Anxiety F41.9 Obesity (BMI 30-39.9) E66.9 Assessment & Plan Assessment & Plan (1) Diabetes mellitus: Code(s): E11.9 - Type 2 diabetes mellitus without complications Category: Medical Qualifiers: Diabetes mellitus complication status: with hyperglycemia Diabetes mellitus residential insulin use: without manager long term care use Diabetes mellitus type: type 2 Qualified Code(s): E11.65 - Type 2 diabetes mellitus with hyperglycemia Plan: Her HgbA1c has remained unchanged at 6.0% on her labs done earlier today (was previously also at 6.0% a few months ago) - goal is at least <7.0% Reinforced diabetic diet Continue Metformin ER 500 mg Q PM and Ozempic 0.5 mg SQ once a week (2) Dyslipidemia: Code(s): E78.5 - Hyperlipidemia, unspecified Category: Medical Plan: Results of her labs done earlier today reviewed and discussed with patient Reinforced low-cholesterol diet Will continue to hold off on starting patient on statins for now - her cholesterol levels are still within acceptable range, with her LDL cholesterol at 116 mg/dl but advised that given her comorbidities (being a diabetic), her LDL goal should be <100 mg/dl and closer to 70 mg/dl Will recheck her labs and fasting lipids in 4 months for follow up (3) Benign essential hypertension: Code(s): I10 - Essential (primary) hypertension Category: Medical Plan: Reinforced low sodium diet - goal is systolic BP of 120 mm or less Continue Lisinopril 5 mg QD Patient is reminded to continue monitoring her BP regularly (4) Hypercoagulable state: Comment: 1st DVT in 2004 after back surgery; 2nd DVT in 2012 - unprovoked; on Xarelto since 2012; had R femoral DVT in 01/2021 - Rx switched to Eliquis Code(s): D68.59 - Other primary thrombophilia Category: Medical Plan: Continue Eliquis 5 mg BID - Rx refilled Follow up with hematology (Dr. Holt) as scheduled (5) Lumbar degenerative disc disease: Code(s): M51.36 - Other intervertebral disc degeneration, lumbar region Category: Medical Qualifiers: Disc-related pain type: discogenic back pain only Qualified Code(s): M51.360 - Other intervertebral disc degeneration, lumbar region with discogenic back pain only Plan: Reinforced activity and weight-lifting restrictions Continue Cyclobenzaprine 10 mg 3 times a day as needed, Gabapentin 300 mg 2 capsule 3 times a day and Tapentadol 50 mg every 6-8 hours as needed for increased pain (6) Acquired hypothyroidism: Code(s): E03.9 - Hypothyroidism, unspecified Category: Medical Plan: Her TFTs remain normal on her recent labs Continue Levothyroxine 88 mcg QD Will recheck her TFTs in 4 months for follow up (7) Peripheral neuropathy: Code(s): G62.9 - Polyneuropathy, unspecified Category: Medical Qualifiers: Peripheral neuropathy type: polyneuropathy, unspecified Qualified Code(s): G62.9 - Polyneuropathy, unspecified Plan: Patient states that Gabapentin is still helping with her symptoms - she is currently on Gabapentin 600 mg TID Follow up with neurology (Dr. Esquivel) as scheduled (8) Vitamin B12 deficiency: Code(s): E53.8 - Deficiency of other specified B group vitamins Category: Medical Plan: Continue Vitamin B12 tablets 1000 mcg QD - she admits to not taking this for a while now Have advised her that her B12 level has gotten even lower than before and she should start back on this JEREMIAH - states that she just started back on them a couple of days ago (9) Vitamin D deficiency: Code(s): E55.9 - Vitamin D deficiency, unspecified Category: Medical Plan: Continue Vitamin D3 4000 units QD - have advised patient that her Vitamin D level is also low on her recent labs (10) Elevated LFTs: Code(s): R79.89 - Other specified abnormal findings of blood chemistry Category: Medical Plan: Her LFTs have remained normal on her recent labs This was likely due to hepatosteatosis when they were elevated before - patient has lost a lot of weight over the past few months while on Ozempic Will continue to monitor her LFTs regularly (11) GERD (gastroesophageal reflux disease): Comment: EGD-biopsies no H pylori, continue omeprazole 20 mg daily Code(s): K21.9 - Gastro-esophageal reflux disease without esophagitis Category: Medical Qualifiers: Esophagitis presence: without esophagitis Qualified Code(s): K21.9 - Gastro-esophageal reflux disease without esophagitis Plan: Dietary restrictions reinforced Continue Omeprazole 20 mg QD (12) Restless leg syndrome: Code(s): G25.81 - Restless legs syndrome Category: Medical Plan: Continue Ropinirole 1 mg Q HS (13) Varicose veins of right lower extremity with inflammation: Comment: 04/12/2022 - right small saphenous vein radiofrequency ablation Code(s): I83.11 - Varicose veins of right lower extremity with inflammation Category: Medical Plan: Follow up with vascular surgery as scheduled She is again reminded that she can wear compression stockings and also to keep her legs elevated as often as she can throughout the day to help manage her edema better (14) Calcaneal spur of both feet: Code(s): M77.31 - Calcaneal spur, right foot; M77.32 - Calcaneal spur, left foot Category: Medical Plan: X-rays of both feet done in 03/2021 revealed (+) bilateral calcaneal spurs She has received cortisone injections from podiatry previously, which she states have not really helped Advised that her other options include orthotic inserts and surgery but only as a last resort Follow up with podiatry as scheduled or as needed (15) Insomnia: Code(s): G47.00 - Insomnia, unspecified Category: Medical Qualifiers: Insomnia type: unspecified Qualified Code(s): G47.00 - Insomnia, unspecified Plan: Sleep hygiene reinforced Continue Trazodone 50 mg Q HS (16) Anxiety: Code(s): F41.9 - Anxiety disorder, unspecified Category: Medical Plan: Continue Sertraline 100 mg QD and Doxepin 10 mg Q HS Follow up with psychiatry as scheduled (17) Obesity (BMI 30-39.9): Code(s): E66.9 - Obesity, unspecified Category: Medical Plan: Reinforced diet/exercise as tolerated/lose weight - she has lost almost 25 pounds since the beginning of the year (is currently on Ozempic for her diabetes) Plan Follow up in 4 months Orders: Orders Lipid Panel 4 Months E78.00 - Pure hypercholesterolemia, unspecified Microalbumin, Random (w Creat) 4 Months E11.9 - Type 2 diabetes mellitus without complications Methylmalonic Acid 4 Months E53.8 - Deficiency of other specified B group vitamins Complete Blood Count Auto Diff 4 Months D64.9 - Anemia, unspecified Comprehensive [place]. Panel Fast 4 Months E78.00 - Pure hypercholesterolemia, unspecified Free T4 (Free Thyroxine) 4 Months E03.9 - Hypothyroidism, unspecified Hemoglobin A1c 4 Months E11.9 - Type 2 diabetes mellitus without complications Thyroid Stimulating Hormone 4 Months E03.9 - Hypothyroidism, unspecified UA CC w/rflx Micro + Cult 4 Months R30.0 - Dysuria Vitamin B12 and Folate 4 Months E53.8 - Deficiency of other specified B group vitamins Vitamin D 25-OH Total 4 Months E55.9 - Vitamin D deficiency, unspecified Medications: Refilled apixaban (Eliquis) 5 mg PO BID 180 tabs 3RF 90 days
[2025-04-29 15:12] VITALS: BP 120/86; PULSE 89; O2SAT 96; BMI 33.0
== END 2025-04-29 16:00 | disposition home or self-care (01) ==
LOC: HO.HMCH 15:03
PROVIDERS: PCP Internal Medicine; Visit Provider Internal Medicine
DX: E11.65 Type 2 diabetes mellitus with hyperglycemia (principal); E78.5 Hyperlipidemia, unspecified; I10 Essential (primary) hypertension; D68.59 Other primary thrombophilia; M51.360 Other intervertebral disc degeneration, lumbar region with discogenic back pain only; E03.9 Hypothyroidism, unspecified; G62.9 Polyneuropathy, unspecified; E53.8 Deficiency of other specified B group vitamins; E55.9 Vitamin D deficiency, unspecified; R79.89 Other specified abnormal findings of blood chemistry; K21.9 Gastro-esophageal reflux disease without esophagitis; G25.81 Restless legs syndrome

== ENCOUNTER 2025-05-18 16:05 | Outpatient (REF) | payer BC, SELFPAY | END 2025-05-18 16:06 | disposition home or self-care (01) | LOC: HO.LAB 16:05 | PROVIDERS: PCP Internal Medicine | DX: Z13.89 Encounter for screening for other disorder (principal) ==

== ENCOUNTER 2025-05-18 16:05 | Outpatient (AMB) | payer BC, SELFPAY ==
--- NOTE | 2025-05-18 16:12 | MHC.OFFWIV ---
Intake Vital Signs 05/18/25 16:13 Height 5 ft 6 in Weight 205 lb BMI 33.1 BP 138/76 Blood Pressure Location Lt brachial Position Sitting Pulse 86 Pulse Source Pulse Oximeter Temp 98.5 F Temp Source Oral Pulse Oximetry (%) 99 Oxygen Delivery Method Room Air Intake Visit Reasons: EP Congestion, loss of voice Intake Note: pt presents with sinus congestion, loss of voice and chest congestion without coughing for 2 days Patient Tobacco Use Status: Never used Tobacco Allergies No Known Allergies Allergy (Verified 05/18/25 16:14) Do you need a note to return to daycare/school/sports/work: Yes HPI HPI Comments History of Present Illness Details History - The patient is a 54-year-old female presenting with symptoms of chest congestion and sinus discomfort. - The symptoms began two days ago with chest congestion and a sensation of tightness, similar to asthma, although the patient does not have a history of asthma. - The patient experiences mucus production and congestion, particularly in the mornings, and reports difficulty taking deep breaths while speaking. - The patient denies fever and reports that her oxygen saturation is at 99%. - The patient has not used any medications to manage her symptoms yet. 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 Review of Systems - Respiratory: Reports chest congestion and difficulty taking deep breaths while speaking. Denies wheezing. - General: Denies fever. - ENT: Reports mucus production and sinus congestion, particularly in the mornings. All systems reviewed and are unremarkable except as noted in HPI Physical Exam General: Cooperative, healthy appearing, comfortable and no acute distress Orientation/consciousness: Patient oriented x3 Limitations: No limitations Head: Normal to inspection Ears: Hearing grossly normal bilaterally, external ears normal, EAC's normal bilaterally and TM's normal bilaterally Nose: Normal external nose present, Normal nares present and No nasal discharge present Face and sinus: Normal facial exam and sinuses tender Mouth: Normal oral and palatal mucosa present and moist mucous membranes Throat: Tonsils normal, no exudates, uvula midline, posterior oropharynx erythema Eyes: Appearance normal, both eyes and all related structures Neck: Normal visual inspection, full ROM Respiratory: Clear to auscultation bilaterally. Normal respiratory effort, able to speak in complete sentences, not actively coughing, no respiratory distress, not tachypneic, no tripod positioning and no use of accessory muscles Cardiovascular: Regular rate and rhythm. Normal S1 and S2 Skin: No rashes or lesions noted Neuro: Patient oriented x3 Extremities: Normal to inspection and Yes no clubbing, cyanosis or edema PFSH Medical History Elevated LFTs Insomnia Diabetes mellitus Acquired hypothyroidism Benign essential hypertension Obesity (BMI 30-39.9) Anxiety GERD (gastroesophageal reflux disease) Restless leg syndrome Impaired fasting glucose Stasis edema of both lower extremities Vitamin D deficiency Vitamin B12 deficiency Peripheral neuropathy Lumbar degenerative disc disease Dyslipidemia Hypercoagulable state Hx of deep venous thrombosis Surgical History Hx of endoscopy Hx of colonoscopy History of endometrial ablation History of eye surgery History of surgery History of tubal ligation History of section Family History Father Colon cancer Mother Diabetes Breast cancer Sister Colon cancer Social History Household Members: None Housing: Apartment Are you a primary healthcare administrative assistant to a significant other at home: No Do you presently have visiting nurse or other home services: No Alcohol intake: current Alcohol intake frequency: holidays/special occasions only Patient Tobacco Use Status: Never used Tobacco e-Cigarette/Vaping Use: Never Used Second Hand Smoke Exposure: Yes service: No Current occupational status: employed 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 Cognitive needs: No Hearing needs: No Vision needs: Yes (Reading glasses) Female Reproductive History Menstrual Age of Menarche: 13 Physical Exam Vital Signs: Last Vital Signs Temp 98.5 F 05/18/25 16:13 Pulse 86 05/18/25 16:13 BP 138/76 05/18/25 16:13 Pulse Ox 99 05/18/25 16:13 Oxygen Delivery Method Room Air 05/18/25 16:13 BMI result Body Mass Index 33.1 Assessment & Plan Assessment & Plan (1) URI, acute: Code(s): J06.9 - Acute upper respiratory infection, unspecified Plan: Patient was informed and verbally consented to the use of an ambient scribe for clinic note documentation during this visit. Upper Respiratory Tract Infection - VSS, pt well appearing and PE unremarkable. - Plan includes symptomatic management with decongestants and allergy medications to alleviate congestion and mucus production. - Patient advised to use a neti pot with distilled water or nasal spray to help clear sinuses. - Nasal swab conducted for flu, COVID-19, and RSV testing, with results to be communicated the following day. Orders: Orders SARS-CoV2/FLU/RSV Today R09.89 - Other specified symptoms and signs involving the circulatory and respiratory systems Coding Level of Care Code Est Pt Level 3 (37276) Diagnoses URI, acute J06.9
[2025-05-18 16:13] VITALS: BP 138/76; PULSE 86; TEMP 36.9; O2SAT 99; BMI 33.1
--- OUTSIDE RECORDS SUMMARY | 2025-05-18 18:49 | XMS_ITS | Patient Health Record ---
Author Organization [facility] Address [address] [place] [id number] Care Team Providers Care Tight Rope Walker Name Role Phone Mahendra Gunter Unavailable [phone] Reason For Referral No Information Plan Of Treatment No Information
== END 2025-05-18 16:43 | disposition home or self-care (01) ==
PROVIDERS: PCP Internal Medicine; Visit Provider Physician Assistant
DX: J06.9 Acute upper respiratory infection, unspecified (principal)

== ENCOUNTER 2025-05-19 11:35 | Outpatient (REF) | payer BC, SELFPAY ==
[2025-05-19 12:56] LABS: Resp Syncy Virus RNA Qual PCR NEGATIVE (Negative); SARS COV2 PCR INHOUSE NEGATIVE (Negative)
--- OUTSIDE RECORDS SUMMARY | 2025-05-19 14:35 | XMS_ITS | Patient Health Record ---
Author Organization [facility] Address [address] [place] [id number] Care Team Providers Care Wallpaper Embosser Helper Name Role Phone Mahendra Gunter Unavailable [phone] Reason For Referral No Information Plan Of Treatment No Information
== END 2025-05-19 11:36 | disposition home or self-care (01) ==
LOC: HO.LNP 11:35
PROVIDERS: Visit Provider Physician Assistant
DX: Z03.818 Encounter for observation for suspected exposure to other biological agents ruled out (principal); R09.89 Other specified symptoms and signs involving the circulatory and respiratory systems
CPT/HCPCS: 87637